=== PATIENT | female | born 1950 | race Caucasian/White ===

== ENCOUNTER 2016-05-28 10:57 | Emergency (ER) | payer BC, OTHER ==
[2016-05-28 11:41] LABS: BASO # 0.2 K/mm3 (0.0-0.2); BASO % 1.4 % (0.0-1.0); EOS # 0.2 K/mm3 (0.0-0.50); EOS % 1.6 % (0.0-3.0); LARGE UNSTAINED CELL # 0.2 K/mm3 (0.0-0.4); LARGE UNSTAINED CELL % 1.3 % (0.0-4.0); LYMPH # 1.6 K/mm3 (1.5-4.5); LYMPH % 11.5 % (24.0-44.0); MEAN CORPUSCULAR HGB CONC 32.8 g/dl (32.0-36.5); MEAN CORPUSCULAR VOLUME 85.5 fl (80.0-96.0); MONO # 0.7 K/mm3 (0.0-0.8); MONO % 5.8 % (0.0-5.0); NEUTROPHILS # 9.7 K/mm3 (1.8-7.7); NEUTROPHILS % 78.5 % (36.0-66.0); PLATELET COUNT, AUTOMATED 320 k/mm3 (150-450); RED CELL DISTRIBUTION WIDTH 14.5 % (11.5-14.5); WHITE BLOOD COUNT 12.3 K/mm3 (4.0-10.0)
[2016-05-28 11:53] LABS: CALCIUM LEVEL 8.7 MG/DL (8.8-10.2); CREATININE FOR GFR 1.14 MG/DL (0.55-1.02); GLOMERULAR FILTRATION RATE 50.9 (>45); POTASSIUM SERUM 4.3 MEQ/L (3.5-5.1)
[2016-05-28] MEDS ORDERED: METOPROLOL 5 MG/5 ML VIAL As Ordered ONE (11:54)
[2016-05-28] MEDS ORDERED: METOPROLOL TART 25 MG TABLET As Ordered ONE (11:54)
--- NOTE | 2016-05-28 12:28 | REP ---
AP portable chest radiograph 05/28/2016 Indication: Palpitations Comparison: None Findings: Cardiomediastinal silhouette is within normal limits. There are no focal areas of lung consolidation or pleural effusions. Bones and soft tissues grossly normal. Impression: No acute cardiopulmonary process. Study somewhat limited by AP portable technique Signed by Emelina Kwon MD 05/28/2016 12:19 P
[2016-05-28] MEDS ORDERED: AMIODARONE HCL 150 MG/100 ML PREMIXED BAG (NEXTERONE) As Ordered ONE ×2 (14:52→15:53)
[2016-05-28] MEDS ORDERED: METOPROLOL TART 50 MG TAB As Ordered ONE (17:12)
[2016-05-28] MEDS ORDERED: ENOXAPARIN 100MG/1ML SYRINGE (J1650) As Ordered ONE (17:12)
[2016-05-28] MEDS ORDERED: AMIODARONE 200 MG TAB (PACERONE) As Ordered ONE (17:12)
--- NOTE | 2016-05-28 17:28 | EDDOCDS ---
Physician Documentation [facility] Name: Oly Jolly Age: 66 yrs Sex: Female : 1950 Arrival Date: 05/28/2016 Time: 10:57 Bed 4 Private MD: Dennis Disposition: 05/28 16:59 Critical Care:. pc Disposition: 05/28/16 17:04 Discharged to Home/Self Care. Impression: Persistent atrial fibrillation, Type 2 diabetes mellitus with hyperglycemia. - Condition is Stable. - Discharge Instructions: Atrial Fibrillation, Type 2 Diabetes Mellitus, Adult. - Prescriptions for Metformin 500 mg Oral Tablet - take 1 tablet by ORAL route once daily with morning and evening meals; 60 tablet. - Medication Reconciliation, Local Pharmacy Hours form. - Follow up: Emergency Department; When: Tomorrow; Reason: Recheck today's complaints. Follow up: Joshua Collins MD; When: Call to arrange an appointment; Reason: Continuance of care. - Problem is new. - Symptoms have improved. - Notes: You are not to have anything to eat or drink after midnight, except sips of water for medications. You are to return to the ED tomorrow morning at 7am for repeat EKG, and if still in Atrial Fibrillation, will require electrocardioversion. You're hemoglobin A1C is 12.8 and will require ongoing treatment through your PCP. Metformin has been prescribed. HPI: 12:10 This 66 yrs old Female presents to ER via Walkin/Carried/Asstd with pc complaints of Palpitations. 12:10 The history is obtained from the patient. 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 She felt her heart rate increase at 7pm last night and it has remained elevated since. She feels a little SOB with exertion but has no complaints at rest. She denies chest pain. She has one cup of coffee per morning but denies decongestants, alcohol or stimulant use. The patient has not recently seen a physician. Historical: - Allergies: No known drug Allergies; - Home Meds: 1. none - PMHx: Type 2 DM - refused treatment, High Cholesterol - refused treatment; - PSHx: Appendectomy; Hysterectomy; Tonsillectomy; x 3; - The history from nurses notes was reviewed: and elements of the historical information I have obtained differs from that reported to nursing. - Social history: No barriers to communication noted, The patient speaks fluent Bengali, Speaks appropriately for age, Smoking status: Patient states former smoker of tobacco. - Family history: Not pertinent. - : The pt / caregiver states he / she is not on anticoagulants. Home medication list is obtained from the patient. - Hospitalizations: : No recent hospitalization is reported. - Exposure Risk Screening:: None identified. - Immunization history:: All immunizations up-to-date. - Social history:: the patient is a non-smoker, the patient does not drink alcohol. ROS: 12:14 All systems are negative except as listed. pc Exam: 12:14 General Appearance: no acute distress, alert. pc 12:14 EENT: normal eye inspection, ears, nose and throat normal, pharynx normal, mucous membranes moist 12:14 Neck: The exam reveals no acute abnormalities. ROM is normal and painless. No nuchal rigidity is noted.. 12:14 Respiratory: no respiratory distress, normal breath sounds. 12:14 CVS: normal S1 and S2, no murmurs, strong peripheral pulses, normal capillary refill, the patient is tachycardic, at 165 bpm, irregularly irregular 12:14 Abdomen: soft, non-tender, no organomegaly, normal bowel sounds. 12:14 Back: normal inspection. 12:14 Skin: skin color is normal, warm, dry. 12:14 Extremities: The extremities have a grossly normal appearance, are non-tender, without acute ROM abnormalities. 12:14 Neuro: oriented x 3, cranial nerves normal as tested, no motor deficits, no sensory deficits. 12:14 Psych: normal mood. Vital Signs: 11:00 BP 146 / 98; Pulse 145; Resp 16; Temp 96.9(O); Pulse Ox 98% ; Weight 99.79 kg / 220 cmb lbs; Height 6 ft. 0 in. (182.88 cm); Pain 0/10; 11:07 BP 137 / 81 (auto/); jo3 11:07 Pulse 156 MON; jo3 11:22 BP 143 / 92 (auto/); jo3 11:22 Pulse 148 MON; Pulse Ox 95% ; jo3 11:37 BP 130 / 84 (auto/); jo3 11:37 Pulse 148 MON; Pulse Ox 95% ; jo3 11:52 BP 140 / 92 (auto/); jo3 11:52 Pulse 152 MON; Pulse Ox 95% ; jo3 12:04 BP 143 / 92; Pulse 124; jo3 12:07 BP 146 / 84 (auto/); jo3 12:07 Pulse 122 MON; jo3 12:09 BP 143 / 92 (auto/); jo3 12:09 Pulse 124 MON; jo3 12:09 BP 145 / 85; Pulse 100; jo3 12:15 BP 134 / 79; Pulse 94; jo3 12:18 BP 145 / 85 (auto/); jo3 12:18 Pulse 100 MON; jo3 12:22 BP 134 / 79 (auto/); jo3 12:22 Pulse 102 MON; jo3 12:37 BP 127 / 77 (auto/); jo3 12:37 Pulse 88 MON; Pulse Ox 95% ; jo3 12:52 BP 126 / 59 (auto/); jo3 12:52 Pulse 92 MON; Pulse Ox 95% ; jo3 13:07 BP 116 / 61 (auto/); jo3 13:07 Pulse 90 MON; Pulse Ox 95% ; jo3 13:22 BP 119 / 57 (auto/); jo3 13:22 Pulse 92 MON; Pulse Ox 93% ; jo3 13:37 BP 124 / 80 (auto/); jo3 13:37 Pulse 94 MON; Pulse Ox 96% ; jo3 13:52 BP 118 / 68 (auto/); jo3 13:52 Pulse 86 MON; Pulse Ox 96% ; jo3 14:22 BP 126 / 71 (auto/); jo3 14:22 Pulse 88 MON; Pulse Ox 95% ; jo3 14:37 BP 127 / 63 (auto/); jo3 14:39 Pulse 88 MON; Pulse Ox 95% ; jo3 14:52 BP 122 / 70 (auto/); pml 14:52 Pulse 92 MON; Pulse Ox 95% ; pml 15:22 BP 126 / 59 (auto/); pml 15:22 Pulse 82 MON; pml 16:51 Pulse 100 MON; pml 16:51 BP 146 / 90 (auto/); pml 17:26 BP 145 / 95; Pulse 95; Resp 18; Temp 97.2; Pulse Ox 96% on R/A; Pain 0/10; pml 11:00 Body Mass Index 29.84 (99.79 kg, 182.88 cm) cmb MDM: 11:09 ECG WITH READING ER PHYS+CARDIAG ordered. 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 dwg 11:12 IV Saline Lock ordered. dwg 11:12 Rhythm Strip to chart ordered. dwg 11:12 Undress patient appropriately for examination ordered. dwg 11:13 Basic Metabolic Profile Ordered. EDMS 11:13 CBC with Diff Ordered. EDMS 11:13 Cardiac Injury Profile Ordered. EDMS 11:13 Troponin Ordered. EDMS 11:52 TSH with Free T4 Ordered. EDMS 11:52 A1C Ordered. EDMS 11:52 Metoprolol (Tartrate) 50 mg PO once ordered. pc 11:52 Metoprolol 5 mg IVP every 5 minutes; Hold for SBP < 100 or HR < 60. x3 ordered. pc 11:53 Chest, 1 View Ordered. EDMS 12:30 Differential Diagnosis: new onset atrial fibrillation of 17 hours duration; Type 2 DM pc and elevated lipids with noncompliance. Plan: labs, EKG, imaging, meds. Test interpretation: EKG. 12:44 Basic Metabolic Profile Reviewed. pc 12:44 CBC with Diff Reviewed. pc 12:44 Cardiac Injury Profile Reviewed. pc 12:44 Troponin Reviewed. pc 12:45 Redraw CIP &Troponin (put time in details section) ordered. pc 12:51 Redraw CIP &Troponin (put time in details section) complete. deg 12:52 CARDIAC MARKER PANEL Ordered. EDMS 13:09 TSH with Free T4 Reviewed. pc 13:09 Chest, 1 View Reviewed. pc 14:25 A1C Reviewed. pc 14:25 CARDIAC MARKER PANEL Reviewed. pc 14:35 amiodarone- Rapid load (mix in 100mL of NS) 150 mg IV at 600 mL/hr once over 10 mins; pc Repeat once after 30 minutes if Atrial Fibrillation persists x2 ordered. 14:38 [facility] Payment Agreement was scanned into [facility] and attached to record. jp5 14:38 Financial registration complete. jp5 16:59 Enoxaparin (1mg/kg) 100 mg Sub-Q once; Ensure no Heparin in past 6hrs. Ensure any pc baseline labs are drawn. ordered. 16:59 amiodarone 200 mg PO Per package directions; dispense to go: take at bedtime ordered. pc 16:59 Metoprolol (Tartrate) 50 mg PO Per package directions; dispense 2 doses to go: take at bedtime and in the morning ordered. 16:59 Data reviewed: old medical records, vital signs, nurses notes, EKG(s), lab test pc results, all radiology studies and available results. Test interpretation: LAB - all labs as ordered have been reviewed, interpreted and considered in the overall management of the clinical presentation; X-RAY - interpreted by Radiologist and personally reviewed, 1 view chest no acute disease. The patient has been re-examined and re-evaluated. The patient's symptoms have mildly improved after treatment. Physician consultation: Dr. Quinton Mccrary MD regarding patient's condition, and he advises the amiodarone infusions as ordered. Without conversion to NSR after an hour, he has offered admission to the patient which was declined. As such, he has advised: discharge home, after Lovenox, with amiodarone 200mg at bedtime and metoprolol 50mg at bedtime and in the morning, NPO after midnight and she is to return to the ED at 7am for repeat EKG and possible electrocardioversion . Disposition: The historical points, examination findings, and any diagnostic results supporting the provided diagnosis, were discussed with the patient or legal guardian. The need for outpatient follow up with the provider listed on their discharge instructions was discussed. They were encouraged to return to [facility], or the nearest ED, if symptoms worsen/persist, or for any other questions/concerns. EC:15 Rate is 154 beats/min. Rhythm is irregularly irregular, A fib. QRS [place] is Normal. QRS pc interval is normal. QT interval is normal. Q waves are Old in lead III. T waves are Normal. ST Segment is depressed in leads V4, V5, V6, <1mm. Clinical impression: Nonspecific ST-T changes, Atrial Fibrillation with RVR, and Inferior RI - age indeterminate. Administered Medications: 12:00 Drug: Metoprolol 50 mg [metoprolol tartrate 25 mg tablet (2 tabs)] Route: PO; jo3 12:00 Drug: Metoprolol 5 mg [metoprolol 5 mg/5 mL intravenous solution (5 mL)] Route: IVP; jo3 Site: left antecubital; 12:04 Follow up: BP 143 / 92; Pulse 124 bpm jo3 12:05 Drug: Metoprolol 5 mg [metoprolol 5 mg/5 mL intravenous solution (5 mL)] Route: IVP; jo3 Site: left antecubital; 12:09 Follow up: BP 145 / 85; Pulse 100 bpm jo3 12:10 Drug: Metoprolol 5 mg [metoprolol 5 mg/5 mL intravenous solution (5 mL)] Route: IVP; jo3 Site: left antecubital; 12:15 Follow up: BP 134 / 79; Pulse 94 bpm jo3 15:09 Drug: amiodarone- Rapid load (mix in 100mL of NS) 150 mg [amiodarone 150 mg/100 mL (1.5 jo3 mg/mL) in dextrose, iso-osmotic IV] Route: IV; Rate: 600 mL/hr; Infused Over: 10 mins; Site: left antecubital; 15:25 Follow up: IV Status: Completed infusion jo3 16:00 Drug: amiodarone- Rapid load (mix in 100mL of NS) 150 mg [amiodarone 150 mg/100 mL (1.5 jo3 mg/mL) in dextrose, iso-osmotic IV] Route: IV; Rate: 600 mL/hr; Infused Over: 10 mins; Site: left antecubital; 16:10 Follow up: IV Status: Completed infusion jo3 17:14 Drug: Metoprolol 50 mg [metoprolol tartrate 50 mg tablet (1 tabs)] Route: PO; pml 17:25 Follow up: Response: Med's dispensed home pml 17:15 Drug: Enoxaparin (1mg/kg) 100 mg [enoxaparin 100 mg/mL subcutaneous syringe (1 mL)] pml {Co-Signature: [email or web address] (Kizzy Thomas RN).} Route: Sub-Q; Site: left lower abdomen; 17:15 Drug: amiodarone 200 mg [amiodarone 200 mg tablet (1 tabs)] Route: PO; pml 17:25 Follow up: Response: Med's dispensed home pml Critical Care Time: 16:59 Critical care time: Bedside Care: 35 minutes, Consultation: 20 minutes, Family pc Intervention: 15 minutes. Total time: 70 minutes Signatures: Dispatcher [employer] Lyle Smith MD MD pc Murray, Denise, E [employer] García Nixon RN RN Kizzy Ridley,RN RN jo3 Jane Nick,RN Aye López jp5 Kizzy Thomas RN [id number] The chart was reviewed and I authenticate all verbal orders and agree with the evaluation and treatment provided.Corrections: (The following items were deleted from the chart) 11:39 11:13 ECG WITH READING ER PHYS+CARDIAG ordered. EDMS EDMS 12:14 11:12 PMHx: none; jo3 pc Attachments: 14:38 [facility] Payment Agreement [email or web address] MTDD
--- NOTE | 2016-05-28 17:28 | EDDOCDS ---
Nurse's Notes [facility] Name: Oly Jolly Age: 66 yrs Sex: Female : 1950 Arrival Date: 05/28/2016 Time: 10:57 Bed 4 Private MD: Dennis Diagnosis: Persistent atrial fibrillation;Type 2 diabetes mellitus with hyperglycemia Presentation: 05/28 11:08 Presenting complaint: Patient states: Started having palpitations last evening at jo3 approximately 1930. Fell asleep and awakened this morning with intermittent palpitations. Have been consistent since 0900. Denies CP/SOB. Adult Sepsis Screening: The patient does not have new or worsening altered mentation. Patient's respiratory rate is less than 22. Systolic blood pressure is greater than 100. Patient has a qSOFA score of 0- Negative Sepsis Screen. Suicide/Homicide risk assessment- the patient denies having any suicidal and/or homicidal ideations and does not present with any other emotional, behavioral or mental health complaints. Status: Patient is not a online services manager or dependent. Transition of care: patient was not received from another setting of care. 11:08 Acuity: RA Level 2 jo3 11:08 Method Of Arrival: Walkin/Carried/Asstd jo3 11:08 Red Flag criteria, patient assessed and taken directly to a bed. mk4 Triage Assessment: 11:12 General: Appears in no apparent distress, comfortable, Behavior is appropriate for age, jo3 cooperative. Pain: Denies pain. The patient is triaged at the bedside. See Assessment in Nurses Notes section of ED record. Neurological: Level of Consciousness is awake, alert, Oriented to person, place, time. 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 Respiratory: Airway is patent Respiratory effort is even, unlabored, Breath sounds are clear bilaterally. Derm: Skin is pink, warm & dry. Historical: - Allergies: No known drug Allergies; - Home Meds: 1. none - PMHx: Type 2 DM - refused treatment, High Cholesterol - refused treatment; - PSHx: Appendectomy; Hysterectomy; Tonsillectomy; x 3; - The history from nurses notes was reviewed: and elements of the historical information I have obtained differs from that reported to nursing. - Social history: No barriers to communication noted, The patient speaks fluent Turkish, Speaks appropriately for age, Smoking status: Patient states former smoker of tobacco. - Family history: Not pertinent. - : The pt / caregiver states he / she is not on anticoagulants. Home medication list is obtained from the patient. - Hospitalizations: : No recent hospitalization is reported. - Exposure Risk Screening:: None identified. - Immunization history:: All immunizations up-to-date. - Social history:: the patient is a non-smoker, the patient does not drink alcohol. Screenin:29 Screening information is obtained from the patient. Fall risk: No risks identified. jo3 Assistance ADL's: requires no assistance with activities of daily living. Abuse/DV Screen: The patient / caregiver reports he/she is: not in a situation that causes fear, pain or injury. Nutritional screening: No deficits noted. home support is adequate. 14:52 Advance Directives: Currently, there is no health care proxy. pml Assessment: 11:29 General: Appears in no apparent distress, comfortable, Behavior is appropriate for age, jo3 cooperative, pleasant. Pain: Denies pain. Neurological: Level of Consciousness is awake, alert, Oriented to person, place, time. Cardiovascular: Rhythm is atrial fibrillation with rapid ventricular response. Respiratory: Airway is patent Respiratory effort is even, unlabored, Breath sounds are clear bilaterally. Denies shortness of breath. Derm: Skin is pink, warm & dry. 12:31 Reassessment: Patient appears in no apparent distress at this time. Patient denies pain jo3 at this time. Patient states feeling better. Reports that palpitations have subsided. Rhythm remains atrial fib at a rate of 90-115 approximately. Awaiting full response to medication. Aware of plan of care . 13:40 Reassessment: Patient appears in no apparent distress at this time. Patient denies pain jo3 at this time. Labs drawn and sent by this machine sign writer. Pt resting quietly on stretcher in state of comfort. Awaiting results for disposition. Aware of plan of care. at bedside . 14:30 Reassessment: Patient appears in no apparent distress at this time. Patient denies pain jo3 at this time. Remains on stretcher at this time. Awaiting consult with cardiology at this time for disposition. Aware of plan of care . 15:25 General: Appears in no apparent distress, comfortable, Behavior is appropriate for age, jo3 cooperative. Neurological: Level of Consciousness is awake, alert, Oriented to person, place, time. Cardiovascular: Rhythm is atrial fibrillation Other rate in 80s primarily Chest pain is denied. Respiratory: Airway is patent Respiratory effort is even, unlabored. Derm: Skin is pink, warm & dry. 16:45 General: Appears in no apparent distress, comfortable, Behavior is appropriate for age, jo3 cooperative, pleasant. General: Awaiting disposition with at bedside. Aware of plan of care . Neurological: Level of Consciousness is awake, alert, Oriented to person, place, time. Cardiovascular: Rhythm is atrial fibrillation. Respiratory: Airway is patent Respiratory effort is even, unlabored. Derm: Skin is pink, warm & dry. 17:25 General: Appears in no apparent distress, comfortable, Behavior is appropriate for age, pml cooperative. Pain: Denies pain. Neurological: Level of Consciousness is awake, alert, Oriented to person, place, time. Cardiovascular: Capillary refill < 3 seconds Rhythm is atrial fibrillation. Respiratory: Airway is patent Respiratory effort is even, unlabored. Derm: Skin is pink, warm & dry. Vital Signs: 11:00 BP 146 / 98; Pulse 145; Resp 16; Temp 96.9(O); Pulse Ox 98% ; Weight 99.79 kg; Height 6 cmb ft. 0 in. (182.88 cm); Pain 0/10; 11:07 BP 137 / 81 (auto/); jo3 11:07 Pulse 156 MON; jo3 11:22 BP 143 / 92 (auto/); jo3 11:22 Pulse 148 MON; Pulse Ox 95% ; jo3 11:37 BP 130 / 84 (auto/); jo3 11:37 Pulse 148 MON; Pulse Ox 95% ; jo3 11:52 BP 140 / 92 (auto/); jo3 11:52 Pulse 152 MON; Pulse Ox 95% ; jo3 12:04 BP 143 / 92; Pulse 124; jo3 12:07 BP 146 / 84 (auto/); jo3 12:07 Pulse 122 MON; jo3 12:09 BP 143 / 92 (auto/); jo3 12:09 Pulse 124 MON; jo3 12:09 BP 145 / 85; Pulse 100; jo3 12:15 BP 134 / 79; Pulse 94; jo3 12:18 BP 145 / 85 (auto/); jo3 12:18 Pulse 100 MON; jo3 12:22 BP 134 / 79 (auto/); jo3 12:22 Pulse 102 MON; jo3 12:37 BP 127 / 77 (auto/); jo3 12:37 Pulse 88 MON; Pulse Ox 95% ; jo3 12:52 BP 126 / 59 (auto/); jo3 12:52 Pulse 92 MON; Pulse Ox 95% ; jo3 13:07 BP 116 / 61 (auto/); jo3 13:07 Pulse 90 MON; Pulse Ox 95% ; jo3 13:22 BP 119 / 57 (auto/); jo3 13:22 Pulse 92 MON; Pulse Ox 93% ; jo3 13:37 BP 124 / 80 (auto/); jo3 13:37 Pulse 94 MON; Pulse Ox 96% ; jo3 13:52 BP 118 / 68 (auto/); jo3 13:52 Pulse 86 MON; Pulse Ox 96% ; jo3 14:22 BP 126 / 71 (auto/); jo3 14:22 Pulse 88 MON; Pulse Ox 95% ; jo3 14:37 BP 127 / 63 (auto/); jo3 14:39 Pulse 88 MON; Pulse Ox 95% ; jo3 14:52 BP 122 / 70 (auto/); pml 14:52 Pulse 92 MON; Pulse Ox 95% ; pml 15:22 BP 126 / 59 (auto/); pml 15:22 Pulse 82 MON; pml 16:51 Pulse 100 MON; pml 16:51 BP 146 / 90 (auto/); pml 17:26 BP 145 / 95; Pulse 95; Resp 18; Temp 97.2; Pulse Ox 96% on R/A; Pain 0/10; pml 11:00 Body Mass Index 29.84 (99.79 kg, 182.88 cm) cmb Vitals: 11:00 Log In Time: May 28, 2016 at 10:45. cmb ED Course: 10:58 Patient visited by Isabel eRddy. cmb 10:58 Patient moved to Waiting cmb 10:59 Dennis is Private Physician. cmb 11:01 RN notified that patient meets Red Flag criteria. cmb 11:04 Patient moved to 4 jo3 11:10 Triage Initiated jo3 11:15 EKG done. (by ED staff). Reviewed by Lyle Bustamante MD. ct3 11:18 Patient visited by Vannesa Cornell PCA. ct3 11:18 Accompanied by Family Member, Patient has correct armband on for positive ct3 identification. Placed in gown. Bed in low position. Call light in reach. Side rails up X2. family medicine physician on. Pulse ox on. NIBP on. 11:29 The patient / caregiver is instructed regarding the plan of care and ED course. jo3 11:29 Basic Metabolic Profile Sent. jo3 11:29 CBC with Diff Sent. jo3 11:29 Cardiac Injury Profile Sent. jo3 11:29 Troponin Sent. jo3 11:29 Inserted saline lock: 18 gauge in left antecubital area. Labs drawn. (by ED staff). jo3 Sent per order to lab. 11:30 Patient visited by Kizzy Garcia RN. jo3 11:33 Lyle Bustamante MD is Attending Physician. pc 11:51 Patient visited by Lyle Bustamante MD. pc 12:32 Patient visited by Kizzy Garcia RN. jo3 12:33 A1C Sent. jo3 13:02 Chest, 1 View Returned. EDMS 13:21 Patient visited by Vannesa Cornell PCA. ct3 13:35 CARDIAC MARKER PANEL Sent. jo3 14:02 Patient visited by Kizzy Garcia RN. jo3 14:38 [facility] Payment Agreement was scanned into [employer] and attached to record. jp5 14:51 Patient visited by Vannesa Cornell PCA. ct3 14:52 Patient name changed from Oly\S\\S\Rik\S\ to Oly\S\Karie\S\Rik. EDMS 14:52 Discontinued lock intact, bleeding controlled, pressure dressing applied, No pml redness/swelling at site. No procedures done that require assistance. 15:43 Patient visited by Kizzy Garcia RN. jo3 16:46 Patient visited by Kizzy Garcia RN. jo3 17:03 Joshua Collins MD is Referral Physician. pc Administered Medications: 12:00 Drug: Metoprolol 50 mg [metoprolol tartrate 25 mg tablet (2 tabs)] Route: PO; jo3 12:00 Drug: Metoprolol 5 mg [metoprolol 5 mg/5 mL intravenous solution (5 mL)] Route: IVP; jo3 Site: left antecubital; 12:04 Follow up: BP 143 / 92; Pulse 124 bpm jo3 12:05 Drug: Metoprolol 5 mg [metoprolol 5 mg/5 mL intravenous solution (5 mL)] Route: IVP; jo3 Site: left antecubital; 12:09 Follow up: BP 145 / 85; Pulse 100 bpm jo3 12:10 Drug: Metoprolol 5 mg [metoprolol 5 mg/5 mL intravenous solution (5 mL)] Route: IVP; jo3 Site: left antecubital; 12:15 Follow up: BP 134 / 79; Pulse 94 bpm jo3 15:09 Drug: amiodarone- Rapid load (mix in 100mL of NS) 150 mg [amiodarone 150 mg/100 mL (1.5 jo3 mg/mL) in dextrose, iso-osmotic IV] Route: IV; Rate: 600 mL/hr; Infused Over: 10 mins; Site: left antecubital; 15:25 Follow up: IV Status: Completed infusion jo3 16:00 Drug: amiodarone- Rapid load (mix in 100mL of NS) 150 mg [amiodarone 150 mg/100 mL (1.5 jo3 mg/mL) in dextrose, iso-osmotic IV] Route: IV; Rate: 600 mL/hr; Infused Over: 10 mins; Site: left antecubital; 16:10 Follow up: IV Status: Completed infusion jo3 17:14 Drug: Metoprolol 50 mg [metoprolol tartrate 50 mg tablet (1 tabs)] Route: PO; pml 17:25 Follow up: Response: Med's dispensed home pml 17:15 Drug: Enoxaparin (1mg/kg) 100 mg [enoxaparin 100 mg/mL subcutaneous syringe (1 mL)] pml {Co-Signature: [email or web address] (Kizzy Thomas RN).} Route: Sub-Q; Site: left lower abdomen; 17:15 Drug: amiodarone 200 mg [amiodarone 200 mg tablet (1 tabs)] Route: PO; pml 17:25 Follow up: Response: Med's dispensed home pml Order Results: Lab Order: Basic Metabolic Profile; SPEC'M 05/28/16 11:26 Test: GLUCOSE, FASTING; Value: 413; Range: 80-110; Abnormal: Above upper panic limits; Units: MG/DL; Status: F Test: BLOOD UREA NITROGEN; Value: 20; Range: 7-18; Abnormal: Above high normal; Units: MG/DL; Status: F Test: CREATININE FOR GFR; Value: 1.14; Range: 0.55-1.02; Abnormal: Above high normal; Units: MG/DL; Status: F Test: GLOMERULAR FILTRATION RATE; Value: 50.9; Range: >45; Status: F Test: SODIUM LEVEL; Value: 136; Range: 136-145; Units: MEQ/L; Status: F Test: POTASSIUM SERUM; Value: 4.3; Range: 3.5-5.1; Units: MEQ/L; Status: F Test: CHLORIDE LEVEL; Value: 99; Range: 98-107; Units: MEQ/L; Status: F Test: CARBON DIOXIDE LEVEL; Value: 28; Range: 21-32; Units: MEQ/L; Status: F Test: ANION GAP; Value: 9; Range: 8-16; Units: MEQ/L; Status: F Test: CALCIUM LEVEL; Value: 8.7; Range: 8.8-10.2; Abnormal: Below low normal; Units: MG/DL; Status: F Test Note: ; Units are mL/min/1.73 m2 Chronic Kidney Disease Staging per NKF: Stage I & II GFR >=60 Normal to Mildly Decreased Stage III GFR 30-59 Moderately Decreased Stage IV GFR 15-29 Severely Decreased Stage V GFR <15 Very Little GFR Left ESRD GFR <15 on [employer] SALE CLERK Lab Order: CBC with Diff; SPEC'M 05/28/16 11:26 Test: WHITE BLOOD COUNT; Value: 12.3; Range: 4.0-10.0; Abnormal: Above high normal; Units: K/mm3; Status: F Test: RED BLOOD COUNT; Value: 5.74; Range: 4.00-5.40; Abnormal: Above high normal; Units: M/mm3; Status: F Test: HEMOGLOBIN; Value: 16.1; Range: 12.0-16.0; Abnormal: Above high normal; Units: g/dl; Status: F Test: HEMATOCRIT; Value: 49.1; Range: 36.0-47.0; Abnormal: Above high normal; Units: %; Status: F Test: MEAN CORPUSCULAR VOLUME; Value: 85.5; Range: 80.0-96.0; Units: fl; Status: F Test: MEAN CORPUSCULAR HEMOGLOBIN; Value: 28.0; Range: 27.0-33.0; Units: pg; Status: F Test: MEAN CORPUSCULAR HGB CONC; Value: 32.8; Range: 32.0-36.5; Units: g/dl; Status: F Test: RED CELL DISTRIBUTION WIDTH; Value: 14.5; Range: 11.5-14.5; Units: %; Status: F Test: PLATELET COUNT, AUTOMATED; Value: 320; Range: 150-450; Units: k/mm3; Status: F Test: NEUTROPHILS %; Value: 78.5; Range: 36.0-66.0; Abnormal: Above high normal; Units: %; Status: F Test: LYMPH %; Value: 11.5; Range: 24.0-44.0; Abnormal: Below low normal; Units: %; Status: F Test: MONO %; Value: 5.8; Range: 0.0-5.0; Abnormal: Above high normal; Units: %; Status: F Test: EOS %; Value: 1.6; Range: 0.0-3.0; Units: %; Status: F Test: BASO %; Value: 1.4; Range: 0.0-1.0; Abnormal: Above high normal; Units: %; Status: F Test: LARGE UNSTAINED CELL %; Value: 1.3; Range: 0.0-4.0; Units: %; Status: F Test: NEUTROPHILS #; Value: 9.7; Range: 1.8-7.7; Abnormal: Above high normal; Units: K/mm3; Status: F Test: LYMPH #; Value: 1.6; Range: 1.5-4.5; Units: K/mm3; Status: F Test: MONO #; Value: 0.7; Range: 0.0-0.8; Units: K/mm3; Status: F Test: EOS #; Value: 0.2; Range: 0.0-0.50; Units: K/mm3; Status: F Test: BASO #; Value: 0.2; Range: 0.0-0.2; Units: K/mm3; Status: F Test: LARGE UNSTAINED CELL #; Value: 0.2; Range: 0.0-0.4; Units: K/mm3; Status: F Lab Order: Cardiac Injury Profile; SPEC' 05/28/16 11:26 Test: CPK CREATINE PHOSPHOKINASE; Value: 64; Range: 26-192; Units: U/L; Status: F Test: CK-MB VALUE MASS; Value: 3.2; Range: 0.0-3.6; Units: NG/ML; Status: F Test: MB/CK RELATIVE INDEX; Value: 5.00; Range: < OR =4; Abnormal: Above high normal; Status: F Test Note: ; DIAGNOSIS CRITERIA MMB ng/ml Relative Index (RI) NON-AMI < or = 5 N/A NOLAN ZONE > 5 < or = 4 AMI > 5 > 4 Lab Order: Troponin; SPEC' 05/28/16 11:26 Test: TROPONIN I; Value: 0.14; Range: < 0.10; Abnormal: Above high normal; Units: NG/ML; Status: F Test Note: ; Troponin I Reference Interval for mktg LOCI: 99th Percentile= 0.00-0.045 ng/ml Risk Stratification: <= 0.10 ng/ml Decreased Risk for Adverse Clinical Events. 0.10-1.50 ng/ml Increased Risk for Adverse Clinical Events. Evaluation of additional criterion and/or repeat testing in 2-6 hours is suggested to rule out myocardial damage. >= 1.50 ng/ml Indicative of Myocardial Injury. Lab Order: TSH with Free T4; SPEC'M 05/28/16 11:51 Test: THYROID STIMULATING HORMONE; Value: 1.140; Range: 0.358-3.740; Units: uIU/ML; Status: F Test: FREE T4; Value: 1.00; Range: 0.76-1.46; Units: NG/DL; Status: F Lab Order: A1C; SPEC'M 05/28/16 11:26 Test: HEMOGLOBIN A1c; Value: 12.7; Range: 4.5-6.2; Abnormal: Above high normal; Units: %; Status: F Test: ESTIMATED AVERAGE GLUCOSE; Value: 318; Range: 60-110; Abnormal: Above high normal; Units: MG/DL; Status: F Lab Order: CARDIAC MARKER PANEL; SPEC'M 05/28/16 13:35 Test: CPK CREATINE PHOSPHOKINASE; Value: 57; Range: 26-192; Units: U/L; Status: F Test: CK-MB VALUE MASS; Value: 2.9; Range: 0.0-3.6; Units: NG/ML; Status: F Test: MB/CK RELATIVE INDEX; Value: 5.08; Range: < OR =4; Abnormal: Above high normal; Status: F Test: TROPONIN I; Value: 0.20; Range: < 0.10; Abnormal: High; Units: NG/ML; Status: F Test Note: ; DIAGNOSIS CRITERIA MMB ng/ml Relative Index (RI) NON-AMI < or = 5 N/A NOLAN ZONE > 5 < or = 4 AMI > 5 > 4 Radiology Order: Chest, 1 View Test: Chest, 1 View REASON FOR EXAMINATION: palpitations; AP portable chest radiograph 05/28/2016; ; Indication: Palpitations; ; Comparison: None; ; Findings: Cardiomediastinal silhouette is within normal limits. There are no; focal areas of lung consolidation or pleural effusions. Bones and soft tissues; grossly normal.; ; Impression: No acute cardiopulmonary process. Study somewhat limited by AP; portable technique; ; ; Signed by; Emelina Kwon MD 05/28/2016 12:19 P; Outcome: 17:04 Discharge ordered by Provider. pc 17:27 Discharge Assessment: Patient awake, alert and oriented x 3. No cognitive and/or pml functional deficits noted. Patient verbalized understanding of disposition instructions. patient administered narcotics - no. The following High Risk Discharge criteria are identified: None. Discharged to home ambulatory, with significant other. Condition: good Condition: stable. Discharge instructions given to patient, Instructed on discharge instructions, follow up and referral plans. medication usage, Demonstrated understanding of instructions, medications, Pt was receptive of discharge instructions/ teaching. Prescriptions given X 1. No special radiology studies were completed. Property sent home with patient. 17:27 Patient left the ED. pml Signatures: Dispatcher [employer] EDMS Lyle Bustamante MD MD pc Helmerci, Jennifer, RN RN jo3 Vannesa Cornell, [employer] BAND TEACHER [employer] BAND TEACHER ct3 Sandoval,Jane,RN Isabel Nelson Margaret RN RN [email or web address] Aye Jha jp5 Kizzy Thomas RN [email or web address] Corrections: (The following items were deleted from the chart) 11:12 PMHx: none; jo3 pc MTDD
--- NOTE | 2016-05-29 07:22 | ECGEPIP ---
Stationary ECG Study [facility] - ED Test Date: 2016-05-28 Pat Name: GALO CAMERON Department: Room: - Gender: F Catechist: ct : 1950 Requested By: Lyle Guerrero Order Number: [id number] Reading MD: Modesta Nowak Measurements Intervals [place] Rate: 154 P: [place]: 0 QRS: 24 QRSD: 80 T: 33 QT: 258 QTc: 413 Interpretive Statements ATRIAL FIBRILLATION WITH RAPID VENTRICULAR RESPONSE NONSPECIFIC ST & T-WAVE ABNORMALITY ABNORMAL RHYTHM ECG NO PRIOR FOR COMPARISON Electronically Signed On 05-29-2016 7:22:26 EST by Modesta Nowak
--- NOTE | 2016-05-30 18:28 | EDDOCDS ---
Physician Documentation [facility] Name: Oly Jolly Age: 66 yrs Sex: Female : 1950 Arrival Date: 05/28/2016 Time: 10:57 Bed 4 Private MD: Dennis Disposition: 05/28 16:59 Critical Care:. pc Disposition: 05/28/16 17:04 Discharged to Home/Self Care. Impression: Persistent atrial fibrillation, Type 2 diabetes mellitus with hyperglycemia. - Condition is Stable. - Discharge Instructions: Atrial Fibrillation, Type 2 Diabetes Mellitus, Adult. - Prescriptions for Metformin 500 mg Oral Tablet - take 1 tablet by ORAL route once daily with morning and evening meals; 60 tablet. - Medication Reconciliation, Local Pharmacy Hours form. - Follow up: Emergency Department; When: Tomorrow; Reason: Recheck today's complaints. Follow up: Joshua Collins MD; When: Call to arrange an appointment; Reason: Continuance of care. - Problem is new. - Symptoms have improved. - Notes: You are not to have anything to eat or drink after midnight, except sips of water for medications. You are to return to the ED tomorrow morning at 7am for repeat EKG, and if still in Atrial Fibrillation, will require electrocardioversion. You're hemoglobin A1C is 12.8 and will require ongoing treatment through your PCP. Metformin has been prescribed. HPI: 12:10 This 66 yrs old Female presents to ER via Walkin/Carried/Asstd with pc complaints of Palpitations. 12:10 The history is obtained from the patient. 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 She felt her heart rate increase at 7pm last night and it has remained elevated since. She feels a little SOB with exertion but has no complaints at rest. She denies chest pain. She has one cup of coffee per morning but denies decongestants, alcohol or stimulant use. The patient has not recently seen a physician. Historical: - Allergies: No known drug Allergies; - Home Meds: 1. none - PMHx: Type 2 DM - refused treatment, High Cholesterol - refused treatment; - PSHx: Appendectomy; Hysterectomy; Tonsillectomy; x 3; - The history from nurses notes was reviewed: and elements of the historical information I have obtained differs from that reported to nursing. - Social history: No barriers to communication noted, The patient speaks fluent Malay, Speaks appropriately for age, Smoking status: Patient states former smoker of tobacco. - Family history: Not pertinent. - : The pt / caregiver states he / she is not on anticoagulants. Home medication list is obtained from the patient. - Hospitalizations: : No recent hospitalization is reported. - Exposure Risk Screening:: None identified. - Immunization history:: All immunizations up-to-date. - Social history:: the patient is a non-smoker, the patient does not drink alcohol. ROS: 12:14 All systems are negative except as listed. pc Exam: 12:14 General Appearance: no acute distress, alert. pc 12:14 EENT: normal eye inspection, ears, nose and throat normal, pharynx normal, mucous membranes moist 12:14 Neck: The exam reveals no acute abnormalities. ROM is normal and painless. No nuchal rigidity is noted.. 12:14 Respiratory: no respiratory distress, normal breath sounds. 12:14 CVS: normal S1 and S2, no murmurs, strong peripheral pulses, normal capillary refill, the patient is tachycardic, at 165 bpm, irregularly irregular 12:14 Abdomen: soft, non-tender, no organomegaly, normal bowel sounds. 12:14 Back: normal inspection. 12:14 Skin: skin color is normal, warm, dry. 12:14 Extremities: The extremities have a grossly normal appearance, are non-tender, without acute ROM abnormalities. 12:14 Neuro: oriented x 3, cranial nerves normal as tested, no motor deficits, no sensory deficits. 12:14 Psych: normal mood. Vital Signs: 11:00 BP 146 / 98; Pulse 145; Resp 16; Temp 96.9(O); Pulse Ox 98% ; Weight 99.79 kg / 220 cmb lbs; Height 6 ft. 0 in. (182.88 cm); Pain 0/10; 11:07 BP 137 / 81 (auto/); jo3 11:07 Pulse 156 MON; jo3 11:22 BP 143 / 92 (auto/); jo3 11:22 Pulse 148 MON; Pulse Ox 95% ; jo3 11:37 BP 130 / 84 (auto/); jo3 11:37 Pulse 148 MON; Pulse Ox 95% ; jo3 11:52 BP 140 / 92 (auto/); jo3 11:52 Pulse 152 MON; Pulse Ox 95% ; jo3 12:04 BP 143 / 92; Pulse 124; jo3 12:07 BP 146 / 84 (auto/); jo3 12:07 Pulse 122 MON; jo3 12:09 BP 143 / 92 (auto/); jo3 12:09 Pulse 124 MON; jo3 12:09 BP 145 / 85; Pulse 100; jo3 12:15 BP 134 / 79; Pulse 94; jo3 12:18 BP 145 / 85 (auto/); jo3 12:18 Pulse 100 MON; jo3 12:22 BP 134 / 79 (auto/); jo3 12:22 Pulse 102 MON; jo3 12:37 BP 127 / 77 (auto/); jo3 12:37 Pulse 88 MON; Pulse Ox 95% ; jo3 12:52 BP 126 / 59 (auto/); jo3 12:52 Pulse 92 MON; Pulse Ox 95% ; jo3 13:07 BP 116 / 61 (auto/); jo3 13:07 Pulse 90 MON; Pulse Ox 95% ; jo3 13:22 BP 119 / 57 (auto/); jo3 13:22 Pulse 92 MON; Pulse Ox 93% ; jo3 13:37 BP 124 / 80 (auto/); jo3 13:37 Pulse 94 MON; Pulse Ox 96% ; jo3 13:52 BP 118 / 68 (auto/); jo3 13:52 Pulse 86 MON; Pulse Ox 96% ; jo3 14:22 BP 126 / 71 (auto/); jo3 14:22 Pulse 88 MON; Pulse Ox 95% ; jo3 14:37 BP 127 / 63 (auto/); jo3 14:39 Pulse 88 MON; Pulse Ox 95% ; jo3 14:52 BP 122 / 70 (auto/); pml 14:52 Pulse 92 MON; Pulse Ox 95% ; pml 15:22 BP 126 / 59 (auto/); pml 15:22 Pulse 82 MON; pml 16:51 Pulse 100 MON; pml 16:51 BP 146 / 90 (auto/); pml 17:26 BP 145 / 95; Pulse 95; Resp 18; Temp 97.2; Pulse Ox 96% on R/A; Pain 0/10; pml 11:00 Body Mass Index 29.84 (99.79 kg, 182.88 cm) cmb MDM: 11:09 ECG WITH READING ER PHYS+CARDIAG ordered. EDMS 11:12 Fountain Helper/Pulse Ox/q 30 min VS ordered. dwg 11:12 IV Saline Lock ordered. dwg 11:12 Rhythm Strip to chart ordered. dwg 11:12 Undress patient appropriately for examination ordered. dwg 11:13 Basic Metabolic Profile Ordered. EDMS 11:13 CBC with Diff Ordered. EDMS 11:13 Cardiac Injury Profile Ordered. EDMS 11:13 Troponin Ordered. EDMS 11:52 TSH with Free T4 Ordered. EDMS 11:52 A1C Ordered. EDMS 11:52 Metoprolol (Tartrate) 50 mg PO once ordered. pc 11:52 Metoprolol 5 mg IVP every 5 minutes; Hold for SBP < 100 or HR < 60. x3 ordered. pc 11:53 Chest, 1 View Ordered. EDMS 12:30 Differential Diagnosis: new onset atrial fibrillation of 17 hours duration; Type 2 DM pc and elevated lipids with noncompliance. Plan: labs, EKG, imaging, meds. Test interpretation: EKG. 12:44 Basic Metabolic Profile Reviewed. pc 12:44 CBC with Diff Reviewed. pc 12:44 Cardiac Injury Profile Reviewed. pc 12:44 Troponin Reviewed. pc 12:45 Redraw CIP &Troponin (put time in details section) ordered. pc 12:51 Redraw CIP &Troponin (put time in details section) complete. deg 12:52 CARDIAC MARKER PANEL Ordered. EDMS 13:09 TSH with Free T4 Reviewed. pc 13:09 Chest, 1 View Reviewed. pc 14:25 A1C Reviewed. pc 14:25 CARDIAC MARKER PANEL Reviewed. pc 14:35 amiodarone- Rapid load (mix in 100mL of NS) 150 mg IV at 600 mL/hr once over 10 mins; pc Repeat once after 30 minutes if Atrial Fibrillation persists x2 ordered. 14:38 [facility] Payment Agreement was scanned into [email or web address] and attached to record. jp5 14:38 Financial registration complete. jp5 16:59 Enoxaparin (1mg/kg) 100 mg Sub-Q once; Ensure no Heparin in past 6hrs. Ensure any pc baseline labs are drawn. ordered. 16:59 amiodarone 200 mg PO Per package directions; dispense to go: take at bedtime ordered. pc 16:59 Metoprolol (Tartrate) 50 mg PO Per package directions; dispense 2 doses to go: take at bedtime and in the morning ordered. 16:59 Data reviewed: old medical records, vital signs, nurses notes, EKG(s), lab test pc results, all radiology studies and available results. Test interpretation: LAB - all labs as ordered have been reviewed, interpreted and considered in the overall management of the clinical presentation; X-RAY - interpreted by Radiologist and personally reviewed, 1 view chest no acute disease. The patient has been re-examined and re-evaluated. The patient's symptoms have mildly improved after treatment. Physician consultation: Dr. Quinton Mccrary MD regarding patient's condition, and he advises the amiodarone infusions as ordered. Without conversion to NSR after an hour, he has offered admission to the patient which was declined. As such, he has advised: discharge home, after Lovenox, with amiodarone 200mg at bedtime and metoprolol 50mg at bedtime and in the morning, NPO after midnight and she is to return to the ED at 7am for repeat EKG and possible electrocardioversion . Disposition: The historical points, examination findings, and any diagnostic results supporting the provided diagnosis, were discussed with the patient or legal guardian. The need for outpatient follow up with the provider listed on their discharge instructions was discussed. They were encouraged to return to [facility], or the nearest ED, if symptoms worsen/persist, or for any other questions/concerns. 05/29 11:20 ECG/EKG was scanned into [email or web address] and attached to record. gb EC/12 11:15 Rate is 154 beats/min. Rhythm is irregularly irregular, A fib. QRS Orient is Normal. QRS pc interval is normal. QT interval is normal. Q waves are Old in lead III. T waves are Normal. ST Segment is depressed in leads V4, V5, V6, <1mm. Clinical impression: Nonspecific ST-T changes, Atrial Fibrillation with RVR, and Inferior HI - age indeterminate. Administered Medications: 12:00 Drug: Metoprolol 50 mg [metoprolol tartrate 25 mg tablet (2 tabs)] Route: PO; jo3 12:00 Drug: Metoprolol 5 mg [metoprolol 5 mg/5 mL intravenous solution (5 mL)] Route: IVP; jo3 Site: left antecubital; 12:04 Follow up: BP 143 / 92; Pulse 124 bpm jo3 12:05 Drug: Metoprolol 5 mg [metoprolol 5 mg/5 mL intravenous solution (5 mL)] Route: IVP; jo3 Site: left antecubital; 12:09 Follow up: BP 145 / 85; Pulse 100 bpm jo3 12:10 Drug: Metoprolol 5 mg [metoprolol 5 mg/5 mL intravenous solution (5 mL)] Route: IVP; jo3 Site: left antecubital; 12:15 Follow up: BP 134 / 79; Pulse 94 bpm jo3 15:09 Drug: amiodarone- Rapid load (mix in 100mL of NS) 150 mg [amiodarone 150 mg/100 mL (1.5 jo3 mg/mL) in dextrose, iso-osmotic IV] Route: IV; Rate: 600 mL/hr; Infused Over: 10 mins; Site: left antecubital; 15:25 Follow up: IV Status: Completed infusion jo3 16:00 Drug: amiodarone- Rapid load (mix in 100mL of NS) 150 mg [amiodarone 150 mg/100 mL (1.5 jo3 mg/mL) in dextrose, iso-osmotic IV] Route: IV; Rate: 600 mL/hr; Infused Over: 10 mins; Site: left antecubital; 16:10 Follow up: IV Status: Completed infusion jo3 17:14 Drug: Metoprolol 50 mg [metoprolol tartrate 50 mg tablet (1 tabs)] Route: PO; pml 17:25 Follow up: Response: Med's dispensed home pml 17:15 Drug: Enoxaparin (1mg/kg) 100 mg [enoxaparin 100 mg/mL subcutaneous syringe (1 mL)] pml {Co-Signature: [email or web address] (Kizzy Thomas RN).} Route: Sub-Q; Site: left lower abdomen; 17:15 Drug: amiodarone 200 mg [amiodarone 200 mg tablet (1 tabs)] Route: PO; pml 17:25 Follow up: Response: Med's dispensed home pml Critical Care Time: 16:59 Critical care time: Bedside Care: 35 minutes, Consultation: 20 minutes, Family pc Intervention: 15 minutes. Total time: 70 minutes Signatures: Dispatcher [employer] Lyle Smith MD MD pc Thomas, Yolanda, [employer] Instrument Technician Unit deg García Paulino, RN RN dwg Mariah Lacy, Reg Reg Kizzy Naranjo RN RN Jane Pineda,RN RN Aye Garza [email or web address] Kizzy Thomas RN [id number] The chart was reviewed and I authenticate all verbal orders and agree with the evaluation and treatment provided.Corrections: (The following items were deleted from the chart) 11:39 11:13 ECG WITH READING ER PHYS+CARDIAG ordered. EDMS EDMS 12:14 11:12 PMHx: none; marco antonio hernández Attachments: 14:38 [facility] Payment Agreement jp5 05/29 11:20 ECG/EKG gb Chart Complete MTDD
--- NOTE | 2016-05-30 18:28 | EDDOCDS ---
Nurse's Notes [facility] Name: Oly Jolly Age: 66 yrs Sex: Female : 1950 Arrival Date: 05/28/2016 Time: 10:57 Bed 4 Private MD: Dennis Diagnosis: Persistent atrial fibrillation;Type 2 diabetes mellitus with hyperglycemia Presentation: 05/28 11:08 Presenting complaint: Patient states: Started having palpitations last evening at jo3 approximately 1930. Fell asleep and awakened this morning with intermittent palpitations. Have been consistent since 0900. Denies CP/SOB. Adult Sepsis Screening: The patient does not have new or worsening altered mentation. Patient's respiratory rate is less than 22. Systolic blood pressure is greater than 100. Patient has a qSOFA score of 0- Negative Sepsis Screen. Suicide/Homicide risk assessment- the patient denies having any suicidal and/or homicidal ideations and does not present with any other emotional, behavioral or mental health complaints. Status: Patient is not a claims service adjustor or dependent. Transition of care: patient was not received from another setting of care. 11:08 Acuity: RA Level 2 jo3 11:08 Method Of Arrival: Walkin/Carried/Asstd jo3 11:08 Red Flag criteria, patient assessed and taken directly to a bed. mk4 Triage Assessment: 11:12 General: Appears in no apparent distress, comfortable, Behavior is appropriate for age, jo3 cooperative. Pain: Denies pain. The patient is triaged at the bedside. See Assessment in Nurses Notes section of ED record. Neurological: Level of Consciousness is awake, alert, Oriented to person, place, time. 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 Respiratory: Airway is patent Respiratory effort is even, unlabored, Breath sounds are clear bilaterally. Derm: Skin is pink, warm & dry. Historical: - Allergies: No known drug Allergies; - Home Meds: 1. none - PMHx: Type 2 DM - refused treatment, High Cholesterol - refused treatment; - PSHx: Appendectomy; Hysterectomy; Tonsillectomy; x 3; - The history from nurses notes was reviewed: and elements of the historical information I have obtained differs from that reported to nursing. - Social history: No barriers to communication noted, The patient speaks fluent Setswana, Speaks appropriately for age, Smoking status: Patient states former smoker of tobacco. - Family history: Not pertinent. - : The pt / caregiver states he / she is not on anticoagulants. Home medication list is obtained from the patient. - Hospitalizations: : No recent hospitalization is reported. - Exposure Risk Screening:: None identified. - Immunization history:: All immunizations up-to-date. - Social history:: the patient is a non-smoker, the patient does not drink alcohol. Screenin:29 Screening information is obtained from the patient. Fall risk: No risks identified. jo3 Assistance ADL's: requires no assistance with activities of daily living. Abuse/DV Screen: The patient / caregiver reports he/she is: not in a situation that causes fear, pain or injury. Nutritional screening: No deficits noted. home support is adequate. 14:52 Advance Directives: Currently, there is no health care proxy. pml Assessment: 11:29 General: Appears in no apparent distress, comfortable, Behavior is appropriate for age, jo3 cooperative, pleasant. Pain: Denies pain. Neurological: Level of Consciousness is awake, alert, Oriented to person, place, time. Cardiovascular: Rhythm is atrial fibrillation with rapid ventricular response. Respiratory: Airway is patent Respiratory effort is even, unlabored, Breath sounds are clear bilaterally. Denies shortness of breath. Derm: Skin is pink, warm & dry. 12:31 Reassessment: Patient appears in no apparent distress at this time. Patient denies pain jo3 at this time. Patient states feeling better. Reports that palpitations have subsided. Rhythm remains atrial fib at a rate of 90-115 approximately. Awaiting full response to medication. Aware of plan of care . 13:40 Reassessment: Patient appears in no apparent distress at this time. Patient denies pain jo3 at this time. Labs drawn and sent by this administrative underwriter. Pt resting quietly on stretcher in state of comfort. Awaiting results for disposition. Aware of plan of care. at bedside . 14:30 Reassessment: Patient appears in no apparent distress at this time. Patient denies pain jo3 at this time. Remains on stretcher at this time. Awaiting consult with cardiology at this time for disposition. Aware of plan of care . 15:25 General: Appears in no apparent distress, comfortable, Behavior is appropriate for age, jo3 cooperative. Neurological: Level of Consciousness is awake, alert, Oriented to person, place, time. Cardiovascular: Rhythm is atrial fibrillation Other rate in 80s primarily Chest pain is denied. Respiratory: Airway is patent Respiratory effort is even, unlabored. Derm: Skin is pink, warm & dry. 16:45 General: Appears in no apparent distress, comfortable, Behavior is appropriate for age, jo3 cooperative, pleasant. General: Awaiting disposition with at bedside. Aware of plan of care . Neurological: Level of Consciousness is awake, alert, Oriented to person, place, time. Cardiovascular: Rhythm is atrial fibrillation. Respiratory: Airway is patent Respiratory effort is even, unlabored. Derm: Skin is pink, warm & dry. 17:25 General: Appears in no apparent distress, comfortable, Behavior is appropriate for age, pml cooperative. Pain: Denies pain. Neurological: Level of Consciousness is awake, alert, Oriented to person, place, time. Cardiovascular: Capillary refill < 3 seconds Rhythm is atrial fibrillation. Respiratory: Airway is patent Respiratory effort is even, unlabored. Derm: Skin is pink, warm & dry. Vital Signs: 11:00 BP 146 / 98; Pulse 145; Resp 16; Temp 96.9(O); Pulse Ox 98% ; Weight 99.79 kg; Height 6 cmb ft. 0 in. (182.88 cm); Pain 0/10; 11:07 BP 137 / 81 (auto/); jo3 11:07 Pulse 156 MON; jo3 11:22 BP 143 / 92 (auto/); jo3 11:22 Pulse 148 MON; Pulse Ox 95% ; jo3 11:37 BP 130 / 84 (auto/); jo3 11:37 Pulse 148 MON; Pulse Ox 95% ; jo3 11:52 BP 140 / 92 (auto/); jo3 11:52 Pulse 152 MON; Pulse Ox 95% ; jo3 12:04 BP 143 / 92; Pulse 124; jo3 12:07 BP 146 / 84 (auto/); jo3 12:07 Pulse 122 MON; jo3 12:09 BP 143 / 92 (auto/); jo3 12:09 Pulse 124 MON; jo3 12:09 BP 145 / 85; Pulse 100; jo3 12:15 BP 134 / 79; Pulse 94; jo3 12:18 BP 145 / 85 (auto/); jo3 12:18 Pulse 100 MON; jo3 12:22 BP 134 / 79 (auto/); jo3 12:22 Pulse 102 MON; jo3 12:37 BP 127 / 77 (auto/); jo3 12:37 Pulse 88 MON; Pulse Ox 95% ; jo3 12:52 BP 126 / 59 (auto/); jo3 12:52 Pulse 92 MON; Pulse Ox 95% ; jo3 13:07 BP 116 / 61 (auto/); jo3 13:07 Pulse 90 MON; Pulse Ox 95% ; jo3 13:22 BP 119 / 57 (auto/); jo3 13:22 Pulse 92 MON; Pulse Ox 93% ; jo3 13:37 BP 124 / 80 (auto/); jo3 13:37 Pulse 94 MON; Pulse Ox 96% ; jo3 13:52 BP 118 / 68 (auto/); jo3 13:52 Pulse 86 MON; Pulse Ox 96% ; jo3 14:22 BP 126 / 71 (auto/); jo3 14:22 Pulse 88 MON; Pulse Ox 95% ; jo3 14:37 BP 127 / 63 (auto/); jo3 14:39 Pulse 88 MON; Pulse Ox 95% ; jo3 14:52 BP 122 / 70 (auto/); pml 14:52 Pulse 92 MON; Pulse Ox 95% ; pml 15:22 BP 126 / 59 (auto/); pml 15:22 Pulse 82 MON; pml 16:51 Pulse 100 MON; pml 16:51 BP 146 / 90 (auto/); pml 17:26 BP 145 / 95; Pulse 95; Resp 18; Temp 97.2; Pulse Ox 96% on R/A; Pain 0/10; pml 11:00 Body Mass Index 29.84 (99.79 kg, 182.88 cm) cmb Vitals: 11:00 Log In Time: May 28, 2016 at 10:45. cmb ED Course: 10:58 Patient visited by Isabel Reddy. cmb 10:58 Patient moved to Waiting cmb 10:59 Dennis is Private Physician. cmb 11:01 RN notified that patient meets Red Flag criteria. cmb 11:04 Patient moved to 4 jo3 11:10 Triage Initiated jo3 11:15 EKG done. (by ED staff). Reviewed by Lyle Bustamante MD. ct3 11:18 Patient visited by Vannesa Cornell PCA. ct3 11:18 Accompanied by Family Member, Patient has correct armband on for positive ct3 identification. Placed in gown. Bed in low position. Call light in reach. Side rails up X2. process worker on. Pulse ox on. NIBP on. 11:29 The patient / caregiver is instructed regarding the plan of care and ED course. jo3 11:29 Basic Metabolic Profile Sent. jo3 11:29 CBC with Diff Sent. jo3 11:29 Cardiac Injury Profile Sent. jo3 11:29 Troponin Sent. jo3 11:29 Inserted saline lock: 18 gauge in left antecubital area. Labs drawn. (by ED staff). jo3 Sent per order to lab. 11:30 Patient visited by Kizzy Garcia RN. jo3 11:33 Lyle Bustamante MD is Attending Physician. pc 11:51 Patient visited by Lyle Bustamante MD. pc 12:32 Patient visited by Kizzy Garcia RN. jo3 12:33 A1C Sent. jo3 13:02 Chest, 1 View Returned. EDMS 13:21 Patient visited by Vannesa Cornell PCA. ct3 13:35 CARDIAC MARKER PANEL Sent. jo3 14:02 Patient visited by Kizzy Garcia RN. jo3 14:38 [facility] Payment Agreement was scanned into [employer] and attached to record. jp5 14:51 Patient visited by Vannesa Cornell PCA. ct3 14:52 Patient name changed from Oly\S\\S\Rik\S\ to Oly\S\Karie\S\Rik. EDMS 14:52 Discontinued lock intact, bleeding controlled, pressure dressing applied, No pml redness/swelling at site. No procedures done that require assistance. 15:43 Patient visited by Kizzy Garcia RN. jo3 16:46 Patient visited by Kizzy Garcia RN. jo3 17:03 Joshua Collins MD is Referral Physician. pc 05/29 07:41 EKG-ADULT Returned. EDMS 11:20 ECG/EKG was scanned into [employer] and attached to record. gb Administered Medications: 05/28 12:00 Drug: Metoprolol 50 mg [metoprolol tartrate 25 mg tablet (2 tabs)] Route: PO; jo3 12:00 Drug: Metoprolol 5 mg [metoprolol 5 mg/5 mL intravenous solution (5 mL)] Route: IVP; jo3 Site: left antecubital; 12:04 Follow up: BP 143 / 92; Pulse 124 bpm jo3 12:05 Drug: Metoprolol 5 mg [metoprolol 5 mg/5 mL intravenous solution (5 mL)] Route: IVP; jo3 Site: left antecubital; 12:09 Follow up: BP 145 / 85; Pulse 100 bpm jo3 12:10 Drug: Metoprolol 5 mg [metoprolol 5 mg/5 mL intravenous solution (5 mL)] Route: IVP; jo3 Site: left antecubital; 12:15 Follow up: BP 134 / 79; Pulse 94 bpm jo3 15:09 Drug: amiodarone- Rapid load (mix in 100mL of NS) 150 mg [amiodarone 150 mg/100 mL (1.5 jo3 mg/mL) in dextrose, iso-osmotic IV] Route: IV; Rate: 600 mL/hr; Infused Over: 10 mins; Site: left antecubital; 15:25 Follow up: IV Status: Completed infusion jo3 16:00 Drug: amiodarone- Rapid load (mix in 100mL of NS) 150 mg [amiodarone 150 mg/100 mL (1.5 jo3 mg/mL) in dextrose, iso-osmotic IV] Route: IV; Rate: 600 mL/hr; Infused Over: 10 mins; Site: left antecubital; 16:10 Follow up: IV Status: Completed infusion jo3 17:14 Drug: Metoprolol 50 mg [metoprolol tartrate 50 mg tablet (1 tabs)] Route: PO; pml 17:25 Follow up: Response: Med's dispensed home pml 17:15 Drug: Enoxaparin (1mg/kg) 100 mg [enoxaparin 100 mg/mL subcutaneous syringe (1 mL)] pml {Co-Signature: [email or web address] (Kizzy Thomas RN).} Route: Sub-Q; Site: left lower abdomen; 17:15 Drug: amiodarone 200 mg [amiodarone 200 mg tablet (1 tabs)] Route: PO; pml 17:25 Follow up: Response: Med's dispensed home pml Order Results: Lab Order: Basic Metabolic Profile; SPEC'M 05/28/16 11:26 Test: GLUCOSE, FASTING; Value: 413; Range: 80-110; Abnormal: Above upper panic limits; Units: MG/DL; Status: F Test: BLOOD UREA NITROGEN; Value: 20; Range: 7-18; Abnormal: Above high normal; Units: MG/DL; Status: F Test: CREATININE FOR GFR; Value: 1.14; Range: 0.55-1.02; Abnormal: Above high normal; Units: MG/DL; Status: F Test: GLOMERULAR FILTRATION RATE; Value: 50.9; Range: >45; Status: F Test: SODIUM LEVEL; Value: 136; Range: 136-145; Units: MEQ/L; Status: F Test: POTASSIUM SERUM; Value: 4.3; Range: 3.5-5.1; Units: MEQ/L; Status: F Test: CHLORIDE LEVEL; Value: 99; Range: 98-107; Units: MEQ/L; Status: F Test: CARBON DIOXIDE LEVEL; Value: 28; Range: 21-32; Units: MEQ/L; Status: F Test: ANION GAP; Value: 9; Range: 8-16; Units: MEQ/L; Status: F Test: CALCIUM LEVEL; Value: 8.7; Range: 8.8-10.2; Abnormal: Below low normal; Units: MG/DL; Status: F Test Note: ; Units are mL/min/1.73 m2 Chronic Kidney Disease Staging per NKF: Stage I & II GFR >=60 Normal to Mildly Decreased Stage III GFR 30-59 Moderately Decreased Stage IV GFR 15-29 Severely Decreased Stage V GFR <15 Very Little GFR Left ESRD GFR <15 on FILM WRITER Lab Order: CBC with Diff; SPEC'M 05/28/16 11:26 Test: WHITE BLOOD COUNT; Value: 12.3; Range: 4.0-10.0; Abnormal: Above high normal; Units: K/mm3; Status: F Test: RED BLOOD COUNT; Value: 5.74; Range: 4.00-5.40; Abnormal: Above high normal; Units: M/mm3; Status: F Test: HEMOGLOBIN; Value: 16.1; Range: 12.0-16.0; Abnormal: Above high normal; Units: g/dl; Status: F Test: HEMATOCRIT; Value: 49.1; Range: 36.0-47.0; Abnormal: Above high normal; Units: %; Status: F Test: MEAN CORPUSCULAR VOLUME; Value: 85.5; Range: 80.0-96.0; Units: fl; Status: F Test: MEAN CORPUSCULAR HEMOGLOBIN; Value: 28.0; Range: 27.0-33.0; Units: pg; Status: F Test: MEAN CORPUSCULAR HGB CONC; Value: 32.8; Range: 32.0-36.5; Units: g/dl; Status: F Test: RED CELL DISTRIBUTION WIDTH; Value: 14.5; Range: 11.5-14.5; Units: %; Status: F Test: PLATELET COUNT, AUTOMATED; Value: 320; Range: 150-450; Units: k/mm3; Status: F Test: NEUTROPHILS %; Value: 78.5; Range: 36.0-66.0; Abnormal: Above high normal; Units: %; Status: F Test: LYMPH %; Value: 11.5; Range: 24.0-44.0; Abnormal: Below low normal; Units: %; Status: F Test: MONO %; Value: 5.8; Range: 0.0-5.0; Abnormal: Above high normal; Units: %; Status: F Test: EOS %; Value: 1.6; Range: 0.0-3.0; Units: %; Status: F Test: BASO %; Value: 1.4; Range: 0.0-1.0; Abnormal: Above high normal; Units: %; Status: F Test: LARGE UNSTAINED CELL %; Value: 1.3; Range: 0.0-4.0; Units: %; Status: F Test: NEUTROPHILS #; Value: 9.7; Range: 1.8-7.7; Abnormal: Above high normal; Units: K/mm3; Status: F Test: LYMPH #; Value: 1.6; Range: 1.5-4.5; Units: K/mm3; Status: F Test: MONO #; Value: 0.7; Range: 0.0-0.8; Units: K/mm3; Status: F Test: EOS #; Value: 0.2; Range: 0.0-0.50; Units: K/mm3; Status: F Test: BASO #; Value: 0.2; Range: 0.0-0.2; Units: K/mm3; Status: F Test: LARGE UNSTAINED CELL #; Value: 0.2; Range: 0.0-0.4; Units: K/mm3; Status: F Lab Order: Cardiac Injury Profile; [facility] 05/28/16 11:26 Test: CPK CREATINE PHOSPHOKINASE; Value: 64; Range: 26-192; Units: U/L; Status: F Test: CK-MB VALUE MASS; Value: 3.2; Range: 0.0-3.6; Units: NG/ML; Status: F Test: MB/CK RELATIVE INDEX; Value: 5.00; Range: < OR =4; Abnormal: Above high normal; Status: F Test Note: ; DIAGNOSIS CRITERIA MMB ng/ml Relative Index (RI) NON-AMI < or = 5 N/A [place]OLAN [place]ONE > 5 < or = 4 AMI > 5 > 4 Lab Order: Troponin; [facility] 11:26 Test: TROPONIN I; Value: 0.14; Range: < 0.10; Abnormal: Above high normal; Units: NG/ML; Status: F Test Note: ; Troponin I Reference Interval for English TV LOCI: 99th Percentile= 0.00-0.045 ng/ml Risk Stratification: <= 0.10 ng/ml Decreased Risk for Adverse Clinical Events. 0.10-1.50 ng/ml Increased Risk for Adverse Clinical Events. Evaluation of additional criterion and/or repeat testing in 2-6 hours is suggested to rule out myocardial damage. >= 1.50 ng/ml Indicative of Myocardial Injury. Lab Order: TSH with Free T4; SPEC05/28/16 11:51 Test: THYROID STIMULATING HORMONE; Value: 1.140; Range: 0.358-3.740; Units: uIU/ML; Status: F Test: FREE T4; Value: 1.00; Range: 0.76-1.46; Units: NG/DL; Status: F Lab Order: A1C; [facility] 05/28/16 11:26 Test: HEMOGLOBIN A1c; Value: 12.7; Range: 4.5-6.2; Abnormal: Above high normal; Units: %; Status: F Test: ESTIMATED AVERAGE GLUCOSE; Value: 318; Range: 60-110; Abnormal: Above high normal; Units: MG/DL; Status: F Lab Order: CARDIAC MARKER PANEL; SPEC'M 05/28/16 13:35 Test: CPK CREATINE PHOSPHOKINASE; Value: 57; Range: 26-192; Units: U/L; Status: F Test: CK-MB VALUE MASS; Value: 2.9; Range: 0.0-3.6; Units: NG/ML; Status: F Test: MB/CK RELATIVE INDEX; Value: 5.08; Range: < OR =4; Abnormal: Above high normal; Status: F Test: TROPONIN I; Value: 0.20; Range: < 0.10; Abnormal: High; Units: NG/ML; Status: F Test Note: ; DIAGNOSIS CRITERIA MMB ng/ml Relative Index (RI) NON-AMI < or = 5 N/A N[place]AN ZONE > 5 < or = 4 AMI > 5 > 4 Radiology Order: EKG-ADULT Test: EKG-ADULT REASON FOR EXAMINATION: palpitations; Stationary ECG Study; [facility] - ED; ; Test Date: 2016-05-28; Pat Name: OLY JOLLY Department:; Room: -; 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; : 1950 Requested By: Lyle Guerrero; Order Number: [id number] Reading MD: Modesta Nowak; Measurements; Intervals [place]; Rate: 154 P:; ME: 0 QRS: 24; QRSD: 80 T: 33; QT: 258; QTc: 413; Interpretive Statements; ATRIAL FIBRILLATION WITH RAPID VENTRICULAR RESPONSE; NONSPECIFIC ST T-WAVE ABNORMALITY; ABNORMAL RHYTHM ECG; NO PRIOR FOR COMPARISON; Electronically Signed On 05-29-2016 7:22:26 EST by Modesta Nowak; Radiology Order: Chest, 1 View Test: Chest, 1 View REASON FOR EXAMINATION: palpitations; AP portable chest radiograph 05/28/2016; ; Indication: Palpitations; ; Comparison: None; ; Findings: Cardiomediastinal silhouette is within normal limits. There are no; focal areas of lung consolidation or pleural effusions. Bones and soft tissues; grossly normal.; ; Impression: No acute cardiopulmonary process. Study somewhat limited by AP; portable technique; ; ; Signed by; Emelina Kwon MD 05/28/2016 12:19 P; Outcome: 17:04 Discharge ordered by Provider. pc 17:27 Discharge Assessment: Patient awake, alert and oriented x 3. No cognitive and/or pml functional deficits noted. Patient verbalized understanding of disposition instructions. patient administered narcotics - no. The following High Risk Discharge criteria are identified: None. Discharged to home ambulatory, with significant other. Condition: good Condition: stable. Discharge instructions given to patient, Instructed on discharge instructions, follow up and referral plans. medication usage, Demonstrated understanding of instructions, medications, Pt was receptive of discharge instructions/ teaching. Prescriptions given X 1. No special radiology studies were completed. Property sent home with patient. 17:27 Patient left the ED. pml Signatures: Dispatcher [employer] EDMS Lyle Bustamante MD MD pc Barnhardt, Gloria, Reg Reg Kizzy NaranjoRN RN jo3 Vannesa Cornell, BRASS CUTTER BRASS CUTTER ct3 Jane Nick,RN RN Isabel Crisostomo Margaret RN RN [email or web address] Aye Jha RN [email or web address] Corrections: (The following items were deleted from the chart) 12:14 11:12 PMHx: none; jo3 Chart Complete MTDD
== END 2016-05-28 17:27 | disposition home or self-care (01) ==
LOC: M ED 10:57
DX: I48.1 Persistent atrial fibrillation (principal); E11.65 Type 2 diabetes mellitus with hyperglycemia; E78.00 Pure hypercholesterolemia, unspecified
CPT/HCPCS: 36415; 71010; 80048; 82550; 82553; 83036; 84439; 84443; 85025; 93005; 93041; 96365; 96372; 96375; 96376; 99285; J1650

== ENCOUNTER 2016-05-29 07:10 | Emergency (ER) | payer OTHER ==
[2016-05-29] MEDS ORDERED: METOPROLOL 5 MG/5 ML VIAL As Ordered ONE (08:12)
--- NOTE | 2016-05-29 08:50 | ECGEPIP ---
Stationary ECG Study [facility] - ED Test Date: 2016-05-29 Pat Name: GALO CAMERON Department: Room: - Gender: F Special Officer Automat: johnny : 1950 Requested By: GUERDA GUERRA Order Number: [id number] Reading MD: Lyle Bustamante Measurements Intervals [place] Rate: 113 P: [place]: 0 QRS: 28 QRSD: 86 T: 1 QT: 305 QTc: 419 Interpretive Statements ATRIAL FIBRILLATION WITH RAPID VENTRICULAR RESPONSE Electronically Signed On 05-29-2016 8:50:26 EST by Lyle Bustamante
[2016-05-29] MEDS ORDERED: FLECAINIDE 50MG TABLET PO ONE (09:00)
[2016-05-29 10:21] LABS: CALCIUM LEVEL 8.5 MG/DL (8.8-10.2); CREATININE FOR GFR 1.01 MG/DL (0.55-1.02); GLOMERULAR FILTRATION RATE 58.6 (>45); POTASSIUM SERUM 4.3 MEQ/L (3.5-5.1)
[2016-05-29] MEDS ORDERED: APIXABAN 5 MG TAB (ELIQUIS) As Ordered ONE (14:20)
--- NOTE | 2016-05-29 14:47 | EDDOCDS ---
Nurse's Notes [facility] Name: Oly Cameron Age: 66 yrs Sex: Female : 1950 Arrival Date: 05/29/2016 Time: 07:10 Bed TR7 Private MD: Diagnosis: Persistent atrial fibrillation Presentation: 05/29 07:15 Presenting complaint: Patient states: having some palpitations. seen here yesterday for dy elevated blood sugars and new onset a-fib. no change today. here for recheck. Adult Sepsis Screening: The patient does not have new or worsening altered mentation. Patient's respiratory rate is less than 22. Systolic blood pressure is greater than 100. Patient has a qSOFA score of 0- Negative Sepsis Screen. Suicide/Homicide risk assessment- the patient denies having any suicidal and/or homicidal ideations and does not present with any other emotional, behavioral or mental health complaints. Status: Patient is not a employee services manager or dependent. Transition of care: patient was not received from another setting of care. 07:15 Acuity: RA Level 3 dy 07:15 Method Of Arrival: Walkin/Carried/Asstd dy Triage Assessment: 07:17 General: Appears in no apparent distress. Pain: Denies pain. dy Historical: - Allergies: No known drug Allergies; - Home Meds: 1. metoprolol tartrate 50 mg Oral tab 1 tab 2 times per day (Last dose: 05/29/2016 06:00) 2. amiodarone 200 mg Oral tab 1 tab once daily (Last dose: 05/28/2016 17:15) - PMHx: Type 2 DM - refused treatment, High Cholesterol - refused treatment; - PSHx: Appendectomy; Hysterectomy; Tonsillectomy; x 3; - Social history: Smoking status: Patient states former smoker of tobacco. No barriers to communication noted, The patient speaks fluent Dutch, Speaks appropriately for age. - Family history: Not pertinent. - : The pt / caregiver states he / she is not on anticoagulants. Home medication list is obtained from the patient. - Exposure Risk Screening:: None identified. Screenin:41 Screening information is obtained from the patient. Fall risk: No risks identified. ml6 Assistance ADL's: requires no assistance with activities of daily living. Abuse/DV Screen: The patient / caregiver reports he/she is: not in a situation that causes fear, pain or injury. Nutritional screening: No deficits noted. Advance Directives: Currently, there is no health care proxy. home support is adequate. Assessment: 07:20 General: Appears in no apparent distress, comfortable, Behavior is appropriate for age, ml6 cooperative. Pain: Denies pain. Neurological: No deficits noted. Level of Consciousness is awake, alert, Oriented to person, place, time, Print Graphic Designer are equal bilaterally. Cardiovascular: No deficits noted. Capillary refill < 3 seconds is brisk in bilateral fingers toes Heart tones S1 S2 present. Respiratory: No deficits noted. Airway is patent Respiratory effort is even, unlabored, Respiratory pattern is regular, symmetrical, Breath sounds are clear bilaterally. GI: Abdomen is obese, Bowel sounds present X 4 quads. 08:20 Reassessment: Patient appears in no apparent distress at this time. Patient denies pain ml6 at this time. Patient states feeling better. Patient states symptoms have improved. patient has no c/o pain ordiscomfort. 09:20 Reassessment: Patient appears in no apparent distress at this time. Patient denies pain ml6 at this time. Patient states feeling better. Patient states symptoms have improved. 10:20 General: Appears in no apparent distress, comfortable, Behavior is appropriate for age, ml6 cooperative. Cardiovascular: Capillary refill < 3 seconds is brisk in bilateral fingers toes Heart tones S1 S2 present Edema is absent. Pulses are all present. Rhythm is atrial fibrillation Chest pain is denied. 11:20 Reassessment: Patient appears in no apparent distress at this time. Patient denies pain ml6 at this time. Patient states feeling better. Patient states symptoms have improved. patient sleeping. 12:22 Reassessment: Patient appears in no apparent distress at this time. Patient denies pain ml6 at this time. Patient states feeling better. Patient states symptoms have improved. patient sleeping resp unlabored. 13:21 General: Appears in no apparent distress, comfortable, Behavior is appropriate for age, ml6 cooperative. Pain: Denies pain. Neurological: No deficits noted. Level of Consciousness is awake, alert, Oriented to person, place, time, Print Graphic Designer are equal bilaterally. Cardiovascular: No deficits noted. Capillary refill < 3 seconds is brisk in bilateral fingers toes Heart tones S1 S2 present Edema is absent. Pulses are all present. Rhythm is atrial fibrillation Chest pain is denied. Respiratory: No deficits noted. GI: No deficits noted. 14:42 General: Appears in no apparent distress, comfortable. Cardiovascular: Capillary refill ml6 < 3 seconds is brisk in bilateral fingers toes Heart tones S1 S2 present Edema is absent. Pulses are all present. Rhythm is atrial fibrillation Chest pain is denied. Respiratory: No deficits noted. Vital Signs: 07:17 BP 174 / 97; Pulse 131; Resp 20; Temp 98.1(TE); Pulse Ox 93% on R/A; Weight 99.79 kg dy (R); Height 6 ft. (182.88 cm) (R); 08:00 BP 152 / 89 (auto/); ml6 08:00 Pulse 108 MON; Resp 16; Pulse Ox 96% on R/A; ml6 08:15 BP 162 / 78 (auto/); ml6 08:15 Pulse 105 MON; Resp 16; Pulse Ox 95% on R/A; Pain 0/10; ml6 08:30 BP 150 / 80 (auto/); ml6 08:30 Pulse 113 MON; Resp 16; Pulse Ox 94% on R/A; Pain 0/10; ml6 08:35 BP 140 / 92 (auto/); ml6 08:35 Pulse 107 MON; Resp 16; Pulse Ox 95% on R/A; ml6 08:40 BP 144 / 77 (auto/); ml6 08:40 Pulse 106 MON; Resp 16; Pulse Ox 95% on R/A; ml6 08:45 BP 148 / 82 (auto/); ml6 08:45 Pulse 106 MON; Resp 16; Pulse Ox 94% on R/A; ml6 08:50 BP 153 / 93 (auto/); ml6 08:50 Pulse 109 MON; Resp 16; Pulse Ox 95% on R/A; ml6 08:55 BP 130 / 83 (auto/); ml6 08:55 Pulse 101 MON; Resp 16; Pulse Ox 93% on R/A; ml6 09:00 BP 133 / 89 (auto/); ml6 09:00 Pulse 104 MON; Resp 16; Pulse Ox 92% on R/A; Pain 0/10; ml6 09:05 BP 145 / 80 (auto/); ml6 09:05 Pulse 104 MON; Resp 16; Pulse Ox 93% on R/A; ml6 09:10 BP 132 / 74 (auto/); ml6 09:10 Pulse 102 MON; Resp 16; Pulse Ox 94% on R/A; ml6 09:15 BP 140 / 73 (auto/); ml6 09:15 Pulse 112 MON; Resp 16; Pulse Ox 93% on R/A; ml6 09:20 BP 128 / 75 (auto/); ml6 09:20 Pulse 108 MON; Resp 16; Pulse Ox 94% on R/A; ml6 09:25 BP 131 / 81 (auto/); ml6 09:25 Pulse 101 MON; Resp 16; Temp 98.3(O); Pulse Ox 93% on R/A; Pain 0/10; ml6 09:30 BP 146 / 80 (auto/); ml6 09:30 Pulse 124 MON; Resp 16; Pulse Ox 98% on R/A; Pain 0/10; ml6 09:35 BP 153 / 75 (auto/); ml6 09:35 Pulse 112 MON; Resp 18; Pulse Ox 94% on R/A; ml6 09:45 BP 156 / 91 (auto/); ml6 09:45 Pulse 111 MON; Resp 18; Pulse Ox 93% on R/A; ml6 10:00 BP 167 / 72 (auto/); ml6 10:00 Pulse 116 MON; Resp 16; Pulse Ox 94% on R/A; ml6 10:15 BP 134 / 68 (auto/); ml6 10:15 Pulse 117 MON; Resp 18; Pulse Ox 95% on R/A; ml6 10:30 BP 144 / 67 (auto/); ml6 10:30 Pulse 117 MON; Resp 18; Pulse Ox 94% on R/A; ml6 10:45 BP 119 / 63 (auto/); ml6 10:45 Pulse 115 MON; Resp 18; Pulse Ox 94% on R/A; ml6 11:00 BP 125 / 63 (auto/); ml6 11:00 Pulse 114 MON; Resp 18; Pulse Ox 93% on R/A; ml6 11:15 BP 131 / 74 (auto/); ml6 11:15 Pulse 111 MON; Resp 16; Pulse Ox 95% on R/A; ml6 11:30 BP 126 / 92 (auto/); ml6 11:30 Pulse 114 MON; Resp 18; Pulse Ox 97% on R/A; ml6 11:45 BP 135 / 82 (auto/); ml6 11:45 Pulse 110 MON; Resp 18; Pulse Ox 97% on R/A; ml6 12:00 BP 131 / 101 (auto/); ml6 12:00 Pulse 114 MON; Resp 18; Pulse Ox 98% on R/A; ml6 12:30 BP 138 / 67 (auto/); ml6 12:30 Pulse 114 MON; Resp 15; Pulse Ox 97% on R/A; ml6 12:45 BP 132 / 61 (auto/); ml6 12:45 Pulse 116 MON; Resp 16; Pulse Ox 96% on R/A; Pain 0/10; ml6 13:15 BP 124 / 71 (auto/); ml6 13:15 Pulse 120 MON; Resp 16; Pulse Ox 93% on R/A; ml6 14:42 BP 134 / 85; Pulse 102; Resp 16; Temp 98.7(O); Pulse Ox 98% on R/A; Pain 0/10; ml6 07:17 Body Mass Index 29.84 (99.79 kg, 182.88 cm) dy Vitals: 07:17 Log In Time: May 29, 2016 at 07:16. dy ED Course: 07:13 Patient visited by Lb Joseph Reg. pm4 07:13 Patient moved to Waiting pm4 07:17 Triage Initiated dy 07:22 Vandana Gauthier,RN is Primary Nurse. dy 07:22 Patient moved to 3 dy 07:23 Alejandra Jeffrey DO is PHCP. jo4 07:23 Modesta Nowak MD is Attending Physician. jo4 07:31 Patient visited by Alejandra Jeffrey DO. jo4 07:41 Patient visited by Joel Fuller PCA. jlf 07:41 EKG done. (by ED staff). Reviewed by Modesta Nowak MD. jlf 07:42 Patient visited by Joel Fuller PCA. jlf 07:42 Pt greeted and oriented to ED. Patient advised of names of staff involved in care, jlf location of call walters, wait times and NPO status. Accompanied by Family Member, Patient has correct armband on for positive identification. Placed in gown. Bed in low position. Side rails up X2. panel monitor on. Pulse ox on. NIBP on. 07:55 Inserted peripheral IV: 18gauge IV in left antecubital area Patient tolerated the ml6 procedure well. 08:20 Patient visited by Joel Fuller PCA. jlf 08:28 [facility] Payment Agreement was scanned into [employer] and attached to record. lg 08:52 Primary Nurse role handed off by Vandana Gauthier RN jc4 08:54 Patient visited by Faisal Bullock, BRITTANY. ml6 08:54 Faisal Bullock, BRITTANY is Primary Nurse. jc4 09:06 EKG-ADULT Returned. EDMS 09:27 Patient visited by Faisal Bullock RN. ml6 10:02 Patient visited by Faisal Bullock RN. ml6 10:35 Patient visited by Faisal Bullock RN. ml6 10:54 Patient visited by Faisal Bullock RN. ml6 11:23 Patient moved to OBSERVATION sd1 13:42 Patient visited by Faisal Bullock RN. ml6 14:14 Patient visited by Nora Braxton RN. srm 14:14 Discontinued lock intact, bleeding controlled, pressure dressing applied, No srm redness/swelling at site. 14:21 Mellisa Mitchell is Referral Physician. jo4 14:21 Mynor Ruiz MD is Referral Physician. jo4 14:34 Patient moved to TR7 ml6 14:43 No procedures done that require assistance. ml6 14:45 The patient / caregiver is instructed regarding the plan of care and ED course. ml6 Administered Medications: 08:08 CANCELLED (Other Intervention Used): Metoprolol 5 mg Intraosseous every 5 minutes x3 jo4 08:11 Drug: Metoprolol 5 mg [metoprolol 5 mg/5 mL intravenous solution (5 mL)] Route: IVP; ml6 Site: left antecubital; 08:16 Drug: Metoprolol 5 mg [metoprolol 5 mg/5 mL intravenous solution (5 mL)] Route: IVP; ml6 Site: left antecubital; 08:21 Drug: Metoprolol 5 mg [metoprolol 5 mg/5 mL intravenous solution (5 mL)] Route: IVP; ml6 Site: left antecubital; 09:27 Drug: Flecainide 50 mg [flecainide 100 mg tablet (0.5 tabs)] Route: PO; ml6 14:33 Drug: Apixaban 5 mg [apixaban 2.5 mg tablet (2 tabs)] Route: PO; ml6 Order Results: Lab Order: BMP; SPEC'M 05/29/16 09:39 Test: GLUCOSE, FASTING; Value: 353; Range: 80-110; Abnormal: Above high normal; Units: MG/DL; Status: F Test: BLOOD UREA NITROGEN; Value: 21; Range: 7-18; Abnormal: Above high normal; Units: MG/DL; Status: F Test: CREATININE FOR GFR; Value: 1.01; Range: 0.55-1.02; Units: MG/DL; Status: F Test: GLOMERULAR FILTRATION RATE; Value: 58.6; Range: >45; Status: F Test: SODIUM LEVEL; Value: 140; Range: 136-145; Units: MEQ/L; Status: F Test: POTASSIUM SERUM; Value: 4.3; Range: 3.5-5.1; Units: MEQ/L; Status: F Test: CHLORIDE LEVEL; Value: 102; Range: 98-107; Units: MEQ/L; Status: F Test: CARBON DIOXIDE LEVEL; Value: 31; Range: 21-32; Units: MEQ/L; Status: F Test: ANION GAP; Value: 7; Range: 8-16; Abnormal: Below low normal; Units: MEQ/L; Status: F Test: CALCIUM LEVEL; Value: 8.5; Range: 8.8-10.2; Abnormal: Below low normal; Units: MG/DL; Status: F Test Note: ; Units are mL/min/1.73 m2 Chronic Kidney Disease Staging per NKF: Stage I & II GFR >=60 Normal to Mildly Decreased Stage III GFR 30-59 Moderately Decreased Stage IV GFR 15-29 Severely Decreased Stage V GFR <15 Very Little GFR Left ESRD GFR <15 on AIR DEFENSE ARTILLERY OFFICER Lab Order: Troponin; SPEC'M 05/29/16 09:39 Test: TROPONIN I; Value: 0.11; Range: < 0.10; Abnormal: High; Units: NG/ML; Status: F Test Note: ; Troponin I Reference Interval for [employer] LOCI: 99th Percentile= 0.00-0.045 ng/ml Risk Stratification: <= 0.10 ng/ml Decreased Risk for Adverse Clinical Events. 0.10-1.50 ng/ml Increased Risk for Adverse Clinical Events. Evaluation of additional criterion and/or repeat testing in 2-6 hours is suggested to rule out myocardial damage. >= 1.50 ng/ml Indicative of Myocardial Injury. 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 jo4 14:43 Discharge Assessment: patient administered narcotics - no. The following High Risk ml6 Discharge criteria are identified: None. Discharged to home ambulatory. Condition: improved. Discharge instructions given to patient, Instructed on discharge instructions, follow up and referral plans. medication usage, Demonstrated understanding of instructions, medications, Pt was receptive of discharge instructions/ teaching. Prescriptions given X 1. No special radiology studies were completed. Property sent home with patient. :Personal belongings accompany Pt. 14:46 Patient left the ED. ml6 Signatures: Dispatcher [employer] EDMS Modesta Nowak MD MD sd1 Nora Braxton, RN RN Efe Lawson, Reg Reg lg Rolando Quintana, Faisal Woo RN, BRITTANY SOTO ml6 Kizzy Solorio RN RN [email or web address] Joel Fuller, [employer] EVENT MARKETING MANAGER Alejandra Mayes, DO jo4 Lb Joseph, Reg Reg pm4 Corrections: (The following items were deleted from the chart) 08:54 08:50 Flecainide 50 mg PO ml6 ml6 MTDD
--- NOTE | 2016-05-29 14:47 | EDDOCDS ---
Physician Documentation [facility] Name: Oly Jolly Age: 66 yrs Sex: Female : 1950 Arrival Date: 05/29/2016 Time: 07:10 Bed TR7 Private MD: Disposition: 05/29 08:54 I have independently interviewed and examined the patient, and I agree with the sd1 investigation, diagnosis and treatment plan as documented by the Resident. Disposition: 05/29/16 14:21 Discharged to Home/Self Care. Impression: Persistent atrial fibrillation. - Condition is Stable. - Discharge Instructions: Atrial Fibrillation. - Prescriptions for Metoprolol Tartrate 50 mg Oral Tablet - take 1 tablet by ORAL route 2 times per day take with meal; 30 tablet. apixaban 5 mg Oral Tablet - take 1 tablet by ORAL route 2 times per day; 30 tablet. - Medication Reconciliation, Local Pharmacy Hours form. - Follow up: Mellisa Mitchell; When: Call to arrange an appointment. Follow up: Mynor Ruiz; When: Call to arrange an appointment. - Problem is an ongoing problem. - Symptoms are unchanged. Historical: - Allergies: No known drug Allergies; - Home Meds: 1. metoprolol tartrate 50 mg Oral tab 1 tab 2 times per day (Last dose: 05/29/2016 06:00) 2. amiodarone 200 mg Oral tab 1 tab once daily (Last dose: 05/28/2016 17:15) - PMHx: Type 2 DM - refused treatment, High Cholesterol - refused treatment; - PSHx: Appendectomy; Hysterectomy; Tonsillectomy; x 3; - Social history: Smoking status: Patient states former smoker of tobacco. No barriers to communication noted, The patient speaks fluent Bermudian, Speaks appropriately for age. - Family history: Not pertinent. - : The pt / caregiver states he / she is not on anticoagulants. Home medication list is obtained from the patient. - Exposure Risk Screening:: None identified. Vital Signs: 07:17 BP 174 / 97; Pulse 131; Resp 20; Temp 98.1(TE); Pulse Ox 93% on R/A; Weight 99.79 kg / dy 220 lbs (R); Height 6 ft. (182.88 cm) (R); 08:00 BP 152 / 89 (auto/); ml6 08:00 Pulse 108 MON; Resp 16; Pulse Ox 96% on R/A; ml6 08:15 BP 162 / 78 (auto/); ml6 08:15 Pulse 105 MON; Resp 16; Pulse Ox 95% on R/A; Pain 0/10; ml6 08:30 BP 150 / 80 (auto/); ml6 08:30 Pulse 113 MON; Resp 16; Pulse Ox 94% on R/A; Pain 0/10; ml6 08:35 BP 140 / 92 (auto/); ml6 08:35 Pulse 107 MON; Resp 16; Pulse Ox 95% on R/A; ml6 08:40 BP 144 / 77 (auto/); ml6 08:40 Pulse 106 MON; Resp 16; Pulse Ox 95% on R/A; ml6 08:45 BP 148 / 82 (auto/); ml6 08:45 Pulse 106 MON; Resp 16; Pulse Ox 94% on R/A; ml6 08:50 BP 153 / 93 (auto/); ml6 08:50 Pulse 109 MON; Resp 16; Pulse Ox 95% on R/A; ml6 08:55 BP 130 / 83 (auto/); ml6 08:55 Pulse 101 MON; Resp 16; Pulse Ox 93% on R/A; ml6 09:00 BP 133 / 89 (auto/); ml6 09:00 Pulse 104 MON; Resp 16; Pulse Ox 92% on R/A; Pain 0/10; ml6 09:05 BP 145 / 80 (auto/); ml6 09:05 Pulse 104 MON; Resp 16; Pulse Ox 93% on R/A; ml6 09:10 BP 132 / 74 (auto/); ml6 09:10 Pulse 102 MON; Resp 16; Pulse Ox 94% on R/A; ml6 09:15 BP 140 / 73 (auto/); ml6 09:15 Pulse 112 MON; Resp 16; Pulse Ox 93% on R/A; ml6 09:20 BP 128 / 75 (auto/); ml6 09:20 Pulse 108 MON; Resp 16; Pulse Ox 94% on R/A; ml6 09:25 BP 131 / 81 (auto/); ml6 09:25 Pulse 101 MON; Resp 16; Temp 98.3(O); Pulse Ox 93% on R/A; Pain 0/10; ml6 09:30 BP 146 / 80 (auto/); ml6 09:30 Pulse 124 MON; Resp 16; Pulse Ox 98% on R/A; Pain 0/10; ml6 09:35 BP 153 / 75 (auto/); ml6 09:35 Pulse 112 MON; Resp 18; Pulse Ox 94% on R/A; ml6 09:45 BP 156 / 91 (auto/); ml6 09:45 Pulse 111 MON; Resp 18; Pulse Ox 93% on R/A; ml6 10:00 BP 167 / 72 (auto/); ml6 10:00 Pulse 116 MON; Resp 16; Pulse Ox 94% on R/A; ml6 10:15 BP 134 / 68 (auto/); ml6 10:15 Pulse 117 MON; Resp 18; Pulse Ox 95% on R/A; ml6 10:30 BP 144 / 67 (auto/); ml6 10:30 Pulse 117 MON; Resp 18; Pulse Ox 94% on R/A; ml6 10:45 BP 119 / 63 (auto/); ml6 10:45 Pulse 115 MON; Resp 18; Pulse Ox 94% on R/A; ml6 11:00 BP 125 / 63 (auto/); ml6 11:00 Pulse 114 MON; Resp 18; Pulse Ox 93% on R/A; ml6 11:15 BP 131 / 74 (auto/); ml6 11:15 Pulse 111 MON; Resp 16; Pulse Ox 95% on R/A; ml6 11:30 BP 126 / 92 (auto/); ml6 11:30 Pulse 114 MON; Resp 18; Pulse Ox 97% on R/A; ml6 11:45 BP 135 / 82 (auto/); ml6 11:45 Pulse 110 MON; Resp 18; Pulse Ox 97% on R/A; ml6 12:00 BP 131 / 101 (auto/); ml6 12:00 Pulse 114 MON; Resp 18; Pulse Ox 98% on R/A; ml6 12:30 BP 138 / 67 (auto/); ml6 12:30 Pulse 114 MON; Resp 15; Pulse Ox 97% on R/A; ml6 12:45 BP 132 / 61 (auto/); ml6 12:45 Pulse 116 MON; Resp 16; Pulse Ox 96% on R/A; Pain 0/10; ml6 13:15 BP 124 / 71 (auto/); ml6 13:15 Pulse 120 MON; Resp 16; Pulse Ox 93% on R/A; ml6 14:42 BP 134 / 85; Pulse 102; Resp 16; Temp 98.7(O); Pulse Ox 98% on R/A; Pain 0/10; ml6 07:17 Body Mass Index 29.84 (99.79 kg, 182.88 cm) dy MDM: 07:30 ECG WITH READING ER PHYS+CARDIAG ordered. EDMS 07:56 Truck Cleaner ordered. jo4 08:00 Financial registration complete. mm15 08:06 BMP Ordered. EDMS 08:06 Troponin Ordered. EDMS 08:08 Metoprolol 5 mg IVP every 5 minutes; Hold for SBP < 100 or HR < 60. x3 ordered. jo4 08:28 [facility] Payment Agreement was scanned into [employer] and attached to record. lg 08:32 ED course: Patient seen and examined by me - no prior history of afib - episode of sd1 palpitations pm of 05/27 resolved then recurrence 05/28 presented to the ED - received at 12noon metoprolol 50 mg and metoprolol 5mg IV x 3 as well as amiodarone load of 300mg total patient before bed last evening took 50mg po of metoprolol and 200mg of amiodarone then metoprolol 50mg at 6am this am - patient presented with persistent afib rate low 100s - IV lopressor recheck med profile and per patient request proceed with cardioversion if no to NSR. 08:38 Flecainide 50 mg PO once ordered. jo4 08:54 Flecainide 50 mg PO once ordered. ml6 09:34 EKG-ADULT Reviewed. jo4 10:47 BMP Reviewed. sd1 10:47 Troponin Reviewed. sd1 14:19 Apixaban 5 mg PO once ordered. sd1 Administered Medications: 08:08 CANCELLED (Other Intervention Used): Metoprolol 5 mg Intraosseous every 5 minutes x3 jo4 08:11 Drug: Metoprolol 5 mg [metoprolol 5 mg/5 mL intravenous solution (5 mL)] Route: IVP; ml6 Site: left antecubital; 08:16 Drug: Metoprolol 5 mg [metoprolol 5 mg/5 mL intravenous solution (5 mL)] Route: IVP; ml6 Site: left antecubital; 08:21 Drug: Metoprolol 5 mg [metoprolol 5 mg/5 mL intravenous solution (5 mL)] Route: IVP; ml6 Site: left antecubital; 09:27 Drug: Flecainide 50 mg [flecainide 100 mg tablet (0.5 tabs)] Route: PO; ml6 14:33 Drug: Apixaban 5 mg [apixaban 2.5 mg tablet (2 tabs)] Route: PO; ml6 Signatures: Dispatcher [employer] EDMS Modesta Nowak MD MD sd1 Efe Chaudhary, Kwesi Reg lg Rolando Quintana RN RN dy Faisal Bullock RN RN ml6 Naila Prado mm15 Alejandra Jeffrey DO DO jo4 The chart was reviewed and I authenticate all verbal orders and agree with the evaluation and treatment provided.Corrections: (The following items were deleted from the chart) 08:08 08:08 Metoprolol 5 mg Intraosseous every 5 minutes x3 ordered. jo4 jo4 Attachments: 08:28 [facility] Payment Agreement lg MTDD
--- NOTE | 2016-05-31 15:47 | EDDOCDS ---
Physician Documentation [facility] Name: Oly Jolly Age: 66 yrs Sex: Female : 1950 Arrival Date: 05/29/2016 Time: 07:10 Bed TR7 Private MD: Disposition: 05/29 08:54 I have independently interviewed and examined the patient, and I agree with the sd1 investigation, diagnosis and treatment plan as documented by the Resident. Disposition: 05/29/16 14:21 Discharged to Home/Self Care. Impression: Persistent atrial fibrillation. - Condition is Stable. - Discharge Instructions: Atrial Fibrillation. - Prescriptions for Metoprolol Tartrate 50 mg Oral Tablet - take 1 tablet by ORAL route 2 times per day take with meal; 30 tablet. apixaban 5 mg Oral Tablet - take 1 tablet by ORAL route 2 times per day; 30 tablet. - Medication Reconciliation, Local Pharmacy Hours form. - Follow up: Mellisa Mitchell; When: Call to arrange an appointment. Follow up: Mynor Ruiz; When: Call to arrange an appointment. - Problem is an ongoing problem. - Symptoms are unchanged. Historical: - Allergies: No known drug Allergies; - Home Meds: 1. metoprolol tartrate 50 mg Oral tab 1 tab 2 times per day (Last dose: 05/29/2016 06:00) 2. amiodarone 200 mg Oral tab 1 tab once daily (Last dose: 05/28/2016 17:15) - PMHx: Type 2 DM - refused treatment, High Cholesterol - refused treatment; - PSHx: Appendectomy; Hysterectomy; Tonsillectomy; x 3; - Social history: Smoking status: Patient states former smoker of tobacco. No barriers to communication noted, The patient speaks fluent Mauritian, Speaks appropriately for age. - Family history: Not pertinent. - : The pt / caregiver states he / she is not on anticoagulants. Home medication list is obtained from the patient. - Exposure Risk Screening:: None identified. Vital Signs: 07:17 BP 174 / 97; Pulse 131; Resp 20; Temp 98.1(TE); Pulse Ox 93% on R/A; Weight 99.79 kg / dy 220 lbs (R); Height 6 ft. (182.88 cm) (R); 08:00 BP 152 / 89 (auto/); ml6 08:00 Pulse 108 MON; Resp 16; Pulse Ox 96% on R/A; ml6 08:15 BP 162 / 78 (auto/); ml6 08:15 Pulse 105 MON; Resp 16; Pulse Ox 95% on R/A; Pain 0/10; ml6 08:30 BP 150 / 80 (auto/); ml6 08:30 Pulse 113 MON; Resp 16; Pulse Ox 94% on R/A; Pain 0/10; ml6 08:35 BP 140 / 92 (auto/); ml6 08:35 Pulse 107 MON; Resp 16; Pulse Ox 95% on R/A; ml6 08:40 BP 144 / 77 (auto/); ml6 08:40 Pulse 106 MON; Resp 16; Pulse Ox 95% on R/A; ml6 08:45 BP 148 / 82 (auto/); ml6 08:45 Pulse 106 MON; Resp 16; Pulse Ox 94% on R/A; ml6 08:50 BP 153 / 93 (auto/); ml6 08:50 Pulse 109 MON; Resp 16; Pulse Ox 95% on R/A; ml6 08:55 BP 130 / 83 (auto/); ml6 08:55 Pulse 101 MON; Resp 16; Pulse Ox 93% on R/A; ml6 09:00 BP 133 / 89 (auto/); ml6 09:00 Pulse 104 MON; Resp 16; Pulse Ox 92% on R/A; Pain 0/10; ml6 09:05 BP 145 / 80 (auto/); ml6 09:05 Pulse 104 MON; Resp 16; Pulse Ox 93% on R/A; ml6 09:10 BP 132 / 74 (auto/); ml6 09:10 Pulse 102 MON; Resp 16; Pulse Ox 94% on R/A; ml6 09:15 BP 140 / 73 (auto/); ml6 09:15 Pulse 112 MON; Resp 16; Pulse Ox 93% on R/A; ml6 09:20 BP 128 / 75 (auto/); ml6 09:20 Pulse 108 MON; Resp 16; Pulse Ox 94% on R/A; ml6 09:25 BP 131 / 81 (auto/); ml6 09:25 Pulse 101 MON; Resp 16; Temp 98.3(O); Pulse Ox 93% on R/A; Pain 0/10; ml6 09:30 BP 146 / 80 (auto/); ml6 09:30 Pulse 124 MON; Resp 16; Pulse Ox 98% on R/A; Pain 0/10; ml6 09:35 BP 153 / 75 (auto/); ml6 09:35 Pulse 112 MON; Resp 18; Pulse Ox 94% on R/A; ml6 09:45 BP 156 / 91 (auto/); ml6 09:45 Pulse 111 MON; Resp 18; Pulse Ox 93% on R/A; ml6 10:00 BP 167 / 72 (auto/); ml6 10:00 Pulse 116 MON; Resp 16; Pulse Ox 94% on R/A; ml6 10:15 BP 134 / 68 (auto/); ml6 10:15 Pulse 117 MON; Resp 18; Pulse Ox 95% on R/A; ml6 10:30 BP 144 / 67 (auto/); ml6 10:30 Pulse 117 MON; Resp 18; Pulse Ox 94% on R/A; ml6 10:45 BP 119 / 63 (auto/); ml6 10:45 Pulse 115 MON; Resp 18; Pulse Ox 94% on R/A; ml6 11:00 BP 125 / 63 (auto/); ml6 11:00 Pulse 114 MON; Resp 18; Pulse Ox 93% on R/A; ml6 11:15 BP 131 / 74 (auto/); ml6 11:15 Pulse 111 MON; Resp 16; Pulse Ox 95% on R/A; ml6 11:30 BP 126 / 92 (auto/); ml6 11:30 Pulse 114 MON; Resp 18; Pulse Ox 97% on R/A; ml6 11:45 BP 135 / 82 (auto/); ml6 11:45 Pulse 110 MON; Resp 18; Pulse Ox 97% on R/A; ml6 12:00 BP 131 / 101 (auto/); ml6 12:00 Pulse 114 MON; Resp 18; Pulse Ox 98% on R/A; ml6 12:30 BP 138 / 67 (auto/); ml6 12:30 Pulse 114 MON; Resp 15; Pulse Ox 97% on R/A; ml6 12:45 BP 132 / 61 (auto/); ml6 12:45 Pulse 116 MON; Resp 16; Pulse Ox 96% on R/A; Pain 0/10; ml6 13:15 BP 124 / 71 (auto/); ml6 13:15 Pulse 120 MON; Resp 16; Pulse Ox 93% on R/A; ml6 14:42 BP 134 / 85; Pulse 102; Resp 16; Temp 98.7(O); Pulse Ox 98% on R/A; Pain 0/10; ml6 07:17 Body Mass Index 29.84 (99.79 kg, 182.88 cm) dy MDM: 07:30 ECG WITH READING ER PHYS+CARDIAG ordered. EDMS 07:56 Sack Sorter ordered. jo4 08:00 Financial registration complete. mm15 08:06 BMP Ordered. EDMS 08:06 Troponin Ordered. EDMS 08:08 Metoprolol 5 mg IVP every 5 minutes; Hold for SBP < 100 or HR < 60. x3 ordered. jo4 08:28 [facility] Payment Agreement was scanned into [employer]. and attached to record. lg 08:32 ED course: Patient seen and examined by me - no prior history of afib - episode of sd1 palpitations pm of 05/27 resolved then recurrence 05/28 presented to the ED - received at 12noon metoprolol 50 mg and metoprolol 5mg IV x 3 as well as amiodarone load of 300mg total patient before bed last evening took 50mg po of metoprolol and 200mg of amiodarone then metoprolol 50mg at 6am this am - patient presented with persistent afib rate low 100s - IV lopressor recheck med profile and per patient request proceed with cardioversion if no to NSR. 08:38 Flecainide 50 mg PO once ordered. jo4 08:54 Flecainide 50 mg PO once ordered. ml6 09:34 EKG-ADULT Reviewed. jo4 10:47 BMP Reviewed. sd1 10:47 Troponin Reviewed. sd1 14:19 Apixaban 5 mg PO once ordered. sd1 05/30 08:48 T-Sheet-- Draft Copy was scanned into [employer]. and attached to record. seh 11:42 ECG/EKG was scanned into [employer]. and attached to record. gb 12:27 ED course: Discussed patient's onset of A-fib with Dr. Mccrary. After an initial discussion jo4 with Dr. Mccrary, he recommended that the patient be started on a trial of Flecainide. He also recommended starting a trial of anticoagulation. The patient's A-fib persisted even after assessing patient after 4 hours of receiving Flecainide. Patient was not started on anticoagulation at that time. The recommendations put forth by Dr. Mccrary after a subsequent discussion with him was to discharge the patient on Metoprolol 50mg twice a day, Flecainide 50mg twice a day, and Eliquis 5mg. He also wanted the patient to follow-up in 10 days. He did not recommend cardioversion at this time. Dr. Mccrary also discussed plan with patient telephonically. After discussing plan with patient, she informed me that she would not take Flecainide. A discussion was also had regarding anticoagulation with the patient who did decide to start Eliquis. A dose of Eliquis was provided to the patient while in the ED. At time of discharge she was given a prescription for Metoprolol and Eliquis. It was recommended that she follow-up with Dr. Ruiz and Dr. Mitchell.. Administered Medications: 05/29 08:08 CANCELLED (Other Intervention Used): Metoprolol 5 mg Intraosseous every 5 minutes x3 jo4 08:11 Drug: Metoprolol 5 mg [metoprolol 5 mg/5 mL intravenous solution (5 mL)] Route: IVP; ml6 Site: left antecubital; 08:16 Drug: Metoprolol 5 mg [metoprolol 5 mg/5 mL intravenous solution (5 mL)] Route: IVP; ml6 Site: left antecubital; 08:21 Drug: Metoprolol 5 mg [metoprolol 5 mg/5 mL intravenous solution (5 mL)] Route: IVP; ml6 Site: left antecubital; 09:27 Drug: Flecainide 50 mg [flecainide 100 mg tablet (0.5 tabs)] Route: PO; ml6 14:33 Drug: Apixaban 5 mg [apixaban 2.5 mg tablet (2 tabs)] Route: PO; ml6 Signatures: Dispatcher [employer] EDCA Modesta Nowak MD MD sd1 Mariah Lacy, Reg Reg gb Efe Chaudhary, Reg Reg lg Rolando Quintana RN RN dy Faisal Bullock RN RN ml6 Naila Prado mm15 Alejandra Jeffrey DO DO jo4 [facility] The chart was reviewed and I authenticate all verbal orders and agree with the evaluation and treatment provided.Corrections: (The following items were deleted from the chart) 08:08 08:08 Metoprolol 5 mg Intraosseous every 5 minutes x3 ordered. jo4 jo4 Attachments: 08:28 [facility] Payment Agreement lg 05/30 08:48 T-Sheet-- Draft Copy [facility] 11:42 ECG/EKG gb Chart Complete MTDD
--- NOTE | 2016-05-31 15:47 | EDDOCDS ---
Physician Documentation [facility] Name: Oly Jolly Age: 66 yrs Sex: Female : 1950 Arrival Date: 05/29/2016 Time: 07:10 Bed TR7 Private MD: Disposition: 05/29 08:54 I have independently interviewed and examined the patient, and I agree with the sd1 investigation, diagnosis and treatment plan as documented by the Resident. Disposition: 05/29/16 14:21 Discharged to Home/Self Care. Impression: Persistent atrial fibrillation. - Condition is Stable. - Discharge Instructions: Atrial Fibrillation. - Prescriptions for Metoprolol Tartrate 50 mg Oral Tablet - take 1 tablet by ORAL route 2 times per day take with meal; 30 tablet. apixaban 5 mg Oral Tablet - take 1 tablet by ORAL route 2 times per day; 30 tablet. - Medication Reconciliation, Local Pharmacy Hours form. - Follow up: Mellisa Mitchell; When: Call to arrange an appointment. Follow up: Mynor Ruiz; When: Call to arrange an appointment. - Problem is an ongoing problem. - Symptoms are unchanged. Historical: - Allergies: No known drug Allergies; - Home Meds: 1. metoprolol tartrate 50 mg Oral tab 1 tab 2 times per day (Last dose: 05/29/2016 06:00) 2. amiodarone 200 mg Oral tab 1 tab once daily (Last dose: 05/28/2016 17:15) - PMHx: Type 2 DM - refused treatment, High Cholesterol - refused treatment; - PSHx: Appendectomy; Hysterectomy; Tonsillectomy; x 3; - Social history: Smoking status: Patient states former smoker of tobacco. No barriers to communication noted, The patient speaks fluent Wallisian, Speaks appropriately for age. - Family history: Not pertinent. - : The pt / caregiver states he / she is not on anticoagulants. Home medication list is obtained from the patient. - Exposure Risk Screening:: None identified. Vital Signs: 07:17 BP 174 / 97; Pulse 131; Resp 20; Temp 98.1(TE); Pulse Ox 93% on R/A; Weight 99.79 kg / dy 220 lbs (R); Height 6 ft. (182.88 cm) (R); 08:00 BP 152 / 89 (auto/); ml6 08:00 Pulse 108 MON; Resp 16; Pulse Ox 96% on R/A; ml6 08:15 BP 162 / 78 (auto/); ml6 08:15 Pulse 105 MON; Resp 16; Pulse Ox 95% on R/A; Pain 0/10; ml6 08:30 BP 150 / 80 (auto/); ml6 08:30 Pulse 113 MON; Resp 16; Pulse Ox 94% on R/A; Pain 0/10; ml6 08:35 BP 140 / 92 (auto/); ml6 08:35 Pulse 107 MON; Resp 16; Pulse Ox 95% on R/A; ml6 08:40 BP 144 / 77 (auto/); ml6 08:40 Pulse 106 MON; Resp 16; Pulse Ox 95% on R/A; ml6 08:45 BP 148 / 82 (auto/); ml6 08:45 Pulse 106 MON; Resp 16; Pulse Ox 94% on R/A; ml6 08:50 BP 153 / 93 (auto/); ml6 08:50 Pulse 109 MON; Resp 16; Pulse Ox 95% on R/A; ml6 08:55 BP 130 / 83 (auto/); ml6 08:55 Pulse 101 MON; Resp 16; Pulse Ox 93% on R/A; ml6 09:00 BP 133 / 89 (auto/); ml6 09:00 Pulse 104 MON; Resp 16; Pulse Ox 92% on R/A; Pain 0/10; ml6 09:05 BP 145 / 80 (auto/); ml6 09:05 Pulse 104 MON; Resp 16; Pulse Ox 93% on R/A; ml6 09:10 BP 132 / 74 (auto/); ml6 09:10 Pulse 102 MON; Resp 16; Pulse Ox 94% on R/A; ml6 09:15 BP 140 / 73 (auto/); ml6 09:15 Pulse 112 MON; Resp 16; Pulse Ox 93% on R/A; ml6 09:20 BP 128 / 75 (auto/); ml6 09:20 Pulse 108 MON; Resp 16; Pulse Ox 94% on R/A; ml6 09:25 BP 131 / 81 (auto/); ml6 09:25 Pulse 101 MON; Resp 16; Temp 98.3(O); Pulse Ox 93% on R/A; Pain 0/10; ml6 09:30 BP 146 / 80 (auto/); ml6 09:30 Pulse 124 MON; Resp 16; Pulse Ox 98% on R/A; Pain 0/10; ml6 09:35 BP 153 / 75 (auto/); ml6 09:35 Pulse 112 MON; Resp 18; Pulse Ox 94% on R/A; ml6 09:45 BP 156 / 91 (auto/); ml6 09:45 Pulse 111 MON; Resp 18; Pulse Ox 93% on R/A; ml6 10:00 BP 167 / 72 (auto/); ml6 10:00 Pulse 116 MON; Resp 16; Pulse Ox 94% on R/A; ml6 10:15 BP 134 / 68 (auto/); ml6 10:15 Pulse 117 MON; Resp 18; Pulse Ox 95% on R/A; ml6 10:30 BP 144 / 67 (auto/); ml6 10:30 Pulse 117 MON; Resp 18; Pulse Ox 94% on R/A; ml6 10:45 BP 119 / 63 (auto/); ml6 10:45 Pulse 115 MON; Resp 18; Pulse Ox 94% on R/A; ml6 11:00 BP 125 / 63 (auto/); ml6 11:00 Pulse 114 MON; Resp 18; Pulse Ox 93% on R/A; ml6 11:15 BP 131 / 74 (auto/); ml6 11:15 Pulse 111 MON; Resp 16; Pulse Ox 95% on R/A; ml6 11:30 BP 126 / 92 (auto/); ml6 11:30 Pulse 114 MON; Resp 18; Pulse Ox 97% on R/A; ml6 11:45 BP 135 / 82 (auto/); ml6 11:45 Pulse 110 MON; Resp 18; Pulse Ox 97% on R/A; ml6 12:00 BP 131 / 101 (auto/); ml6 12:00 Pulse 114 MON; Resp 18; Pulse Ox 98% on R/A; ml6 12:30 BP 138 / 67 (auto/); ml6 12:30 Pulse 114 MON; Resp 15; Pulse Ox 97% on R/A; ml6 12:45 BP 132 / 61 (auto/); ml6 12:45 Pulse 116 MON; Resp 16; Pulse Ox 96% on R/A; Pain 0/10; ml6 13:15 BP 124 / 71 (auto/); ml6 13:15 Pulse 120 MON; Resp 16; Pulse Ox 93% on R/A; ml6 14:42 BP 134 / 85; Pulse 102; Resp 16; Temp 98.7(O); Pulse Ox 98% on R/A; Pain 0/10; ml6 07:17 Body Mass Index 29.84 (99.79 kg, 182.88 cm) dy MDM: 07:30 ECG WITH READING ER PHYS+CARDIAG ordered. EDMS 07:56 Generation Engineer ordered. jo4 08:00 Financial registration complete. mm15 08:06 BMP Ordered. EDMS 08:06 Troponin Ordered. EDMS 08:08 Metoprolol 5 mg IVP every 5 minutes; Hold for SBP < 100 or HR < 60. x3 ordered. jo4 08:28 [facility] Payment Agreement was scanned into [employer] and attached to record. lg 08:32 ED course: Patient seen and examined by me - no prior history of afib - episode of sd1 palpitations pm of 05/27 resolved then recurrence 05/28 presented to the ED - received at 12noon metoprolol 50 mg and metoprolol 5mg IV x 3 as well as amiodarone load of 300mg total patient before bed last evening took 50mg po of metoprolol and 200mg of amiodarone then metoprolol 50mg at 6am this am - patient presented with persistent afib rate low 100s - IV lopressor recheck med profile and per patient request proceed with cardioversion if no to NSR. 08:38 Flecainide 50 mg PO once ordered. jo4 08:54 Flecainide 50 mg PO once ordered. ml6 09:34 EKG-ADULT Reviewed. jo4 10:47 BMP Reviewed. sd1 10:47 Troponin Reviewed. sd1 14:19 Apixaban 5 mg PO once ordered. sd1 05/30 08:48 T-Sheet-- Draft Copy was scanned into [employer] and attached to record. seh 11:42 ECG/EKG was scanned into [employer] and attached to record. gb 12:27 ED course: Discussed patient's onset of A-fib with Dr. Mccrary. After an initial discussion jo4 with Dr. Mccrary, he recommended that the patient be started on a trial of Flecainide. He also recommended starting a trial of anticoagulation. The patient's A-fib persisted even after assessing patient after 4 hours of receiving Flecainide. Patient was not started on anticoagulation at that time. The recommendations put forth by Dr. Mccrary after a subsequent discussion with him was to discharge the patient on Metoprolol 50mg twice a day, Flecainide 50mg twice a day, and Eliquis 5mg. He also wanted the patient to follow-up in 10 days. He did not recommend cardioversion at this time. Dr. Mccrary also discussed plan with patient telephonically. After discussing plan with patient, she informed me that she would not take Flecainide. A discussion was also had regarding anticoagulation with the patient who did decide to start Eliquis. A dose of Eliquis was provided to the patient while in the ED. At time of discharge she was given a prescription for Metoprolol and Eliquis. It was recommended that she follow-up with Dr. Ruiz and Dr. Mitchell.. Administered Medications: 05/29 08:08 CANCELLED (Other Intervention Used): Metoprolol 5 mg Intraosseous every 5 minutes x3 jo4 08:11 Drug: Metoprolol 5 mg [metoprolol 5 mg/5 mL intravenous solution (5 mL)] Route: IVP; ml6 Site: left antecubital; 08:16 Drug: Metoprolol 5 mg [metoprolol 5 mg/5 mL intravenous solution (5 mL)] Route: IVP; ml6 Site: left antecubital; 08:21 Drug: Metoprolol 5 mg [metoprolol 5 mg/5 mL intravenous solution (5 mL)] Route: IVP; ml6 Site: left antecubital; 09:27 Drug: Flecainide 50 mg [flecainide 100 mg tablet (0.5 tabs)] Route: PO; ml6 14:33 Drug: Apixaban 5 mg [apixaban 2.5 mg tablet (2 tabs)] Route: PO; ml6 Signatures: Dispatcher [employer] EDTX Modesta Nowak MD MD sd1 Mariah Lacy, Reg Reg gb Efe Chaudhary, Reg Reg lg Rolando Quintana RN RN dy Faisal Bullock RN RN ml6 Naila Prado mm15 Alejandra Jeffrey DO DO jo4 [facility] The chart was reviewed and I authenticate all verbal orders and agree with the evaluation and treatment provided.Corrections: (The following items were deleted from the chart) 08:08 08:08 Metoprolol 5 mg Intraosseous every 5 minutes x3 ordered. jo4 jo4 Attachments: 08:28 [facility] Payment Agreement lg 05/30 08:48 T-Sheet-- Draft Copy [facility] 11:42 ECG/EKG gb Chart Complete MTDD
--- NOTE | 2016-05-31 15:48 | EDDOCDS ---
Nurse's Notes [facility] Name: Oly Cameron Age: 66 yrs Sex: Female : 1950 Arrival Date: 05/29/2016 Time: 07:10 Bed TR7 Private MD: Diagnosis: Persistent atrial fibrillation Presentation: 05/29 07:15 Presenting complaint: Patient states: having some palpitations. seen here yesterday for dy elevated blood sugars and new onset a-fib. no change today. here for recheck. Adult Sepsis Screening: The patient does not have new or worsening altered mentation. Patient's respiratory rate is less than 22. Systolic blood pressure is greater than 100. Patient has a qSOFA score of 0- Negative Sepsis Screen. Suicide/Homicide risk assessment- the patient denies having any suicidal and/or homicidal ideations and does not present with any other emotional, behavioral or mental health complaints. Status: Patient is not a clinical services assistant or dependent. Transition of care: patient was not received from another setting of care. 07:15 Acuity: RA Level 3 dy 07:15 Method Of Arrival: Walkin/Carried/Asstd dy Triage Assessment: 07:17 General: Appears in no apparent distress. Pain: Denies pain. dy Historical: - Allergies: No known drug Allergies; - Home Meds: 1. metoprolol tartrate 50 mg Oral tab 1 tab 2 times per day (Last dose: 05/29/2016 06:00) 2. amiodarone 200 mg Oral tab 1 tab once daily (Last dose: 05/28/2016 17:15) - PMHx: Type 2 DM - refused treatment, High Cholesterol - refused treatment; - PSHx: Appendectomy; Hysterectomy; Tonsillectomy; x 3; - Social history: Smoking status: Patient states former smoker of tobacco. No barriers to communication noted, The patient speaks fluent [place]an, Speaks appropriately for age. - Family history: Not pertinent. - : The pt / caregiver states he / she is not on anticoagulants. Home medication list is obtained from the patient. - Exposure Risk Screening:: None identified. Screenin:41 Screening information is obtained from the patient. Fall risk: No risks identified. ml6 Assistance ADL's: requires no assistance with activities of daily living. Abuse/DV Screen: The patient / caregiver reports he/she is: not in a situation that causes fear, pain or injury. Nutritional screening: No deficits noted. Advance Directives: Currently, there is no health care proxy. home support is adequate. Assessment: 07:20 General: Appears in no apparent distress, comfortable, Behavior is appropriate for age, ml6 cooperative. Pain: Denies pain. Neurological: No deficits noted. Level of Consciousness is awake, alert, Oriented to person, place, time, Costume Director are equal bilaterally. Cardiovascular: No deficits noted. Capillary refill < 3 seconds is brisk in bilateral fingers toes Heart tones S1 S2 present. Respiratory: No deficits noted. Airway is patent Respiratory effort is even, unlabored, Respiratory pattern is regular, symmetrical, Breath sounds are clear bilaterally. GI: Abdomen is obese, Bowel sounds present X 4 quads. 08:20 Reassessment: Patient appears in no apparent distress at this time. Patient denies pain ml6 at this time. Patient states feeling better. Patient states symptoms have improved. patient has no c/o pain ordiscomfort. 09:20 Reassessment: Patient appears in no apparent distress at this time. Patient denies pain ml6 at this time. Patient states feeling better. Patient states symptoms have improved. 10:20 General: Appears in no apparent distress, comfortable, Behavior is appropriate for age, ml6 cooperative. Cardiovascular: Capillary refill < 3 seconds is brisk in bilateral fingers toes Heart tones S1 S2 present Edema is absent. Pulses are all present. Rhythm is atrial fibrillation Chest pain is denied. 11:20 Reassessment: Patient appears in no apparent distress at this time. Patient denies pain ml6 at this time. Patient states feeling better. Patient states symptoms have improved. patient sleeping. 12:22 Reassessment: Patient appears in no apparent distress at this time. Patient denies pain ml6 at this time. Patient states feeling better. Patient states symptoms have improved. patient sleeping resp unlabored. 13:21 General: Appears in no apparent distress, comfortable, Behavior is appropriate for age, ml6 cooperative. Pain: Denies pain. Neurological: No deficits noted. Level of Consciousness is awake, alert, Oriented to person, place, time, Costume Director are equal bilaterally. Cardiovascular: No deficits noted. Capillary refill < 3 seconds is brisk in bilateral fingers toes Heart tones S1 S2 present Edema is absent. Pulses are all present. Rhythm is atrial fibrillation Chest pain is denied. Respiratory: No deficits noted. GI: No deficits noted. 14:42 General: Appears in no apparent distress, comfortable. Cardiovascular: Capillary refill ml6 < 3 seconds is brisk in bilateral fingers toes Heart tones S1 S2 present Edema is absent. Pulses are all present. Rhythm is atrial fibrillation Chest pain is denied. Respiratory: No deficits noted. Vital Signs: 07:17 BP 174 / 97; Pulse 131; Resp 20; Temp 98.1(TE); Pulse Ox 93% on R/A; Weight 99.79 kg dy (R); Height 6 ft. (182.88 cm) (R); 08:00 BP 152 / 89 (auto/); ml6 08:00 Pulse 108 MON; Resp 16; Pulse Ox 96% on R/A; ml6 08:15 BP 162 / 78 (auto/); ml6 08:15 Pulse 105 MON; Resp 16; Pulse Ox 95% on R/A; Pain 0/10; ml6 08:30 BP 150 / 80 (auto/); ml6 08:30 Pulse 113 MON; Resp 16; Pulse Ox 94% on R/A; Pain 0/10; ml6 08:35 BP 140 / 92 (auto/); ml6 08:35 Pulse 107 MON; Resp 16; Pulse Ox 95% on R/A; ml6 08:40 BP 144 / 77 (auto/); ml6 08:40 Pulse 106 MON; Resp 16; Pulse Ox 95% on R/A; ml6 08:45 BP 148 / 82 (auto/); ml6 08:45 Pulse 106 MON; Resp 16; Pulse Ox 94% on R/A; ml6 08:50 BP 153 / 93 (auto/); ml6 08:50 Pulse 109 MON; Resp 16; Pulse Ox 95% on R/A; ml6 08:55 BP 130 / 83 (auto/); ml6 08:55 Pulse 101 MON; Resp 16; Pulse Ox 93% on R/A; ml6 09:00 BP 133 / 89 (auto/); ml6 09:00 Pulse 104 MON; Resp 16; Pulse Ox 92% on R/A; Pain 0/10; ml6 09:05 BP 145 / 80 (auto/); ml6 09:05 Pulse 104 MON; Resp 16; Pulse Ox 93% on R/A; ml6 09:10 BP 132 / 74 (auto/); ml6 09:10 Pulse 102 MON; Resp 16; Pulse Ox 94% on R/A; ml6 09:15 BP 140 / 73 (auto/); ml6 09:15 Pulse 112 MON; Resp 16; Pulse Ox 93% on R/A; ml6 09:20 BP 128 / 75 (auto/); ml6 09:20 Pulse 108 MON; Resp 16; Pulse Ox 94% on R/A; ml6 09:25 BP 131 / 81 (auto/); ml6 09:25 Pulse 101 MON; Resp 16; Temp 98.3(O); Pulse Ox 93% on R/A; Pain 0/10; ml6 09:30 BP 146 / 80 (auto/); ml6 09:30 Pulse 124 MON; Resp 16; Pulse Ox 98% on R/A; Pain 0/10; ml6 09:35 BP 153 / 75 (auto/); ml6 09:35 Pulse 112 MON; Resp 18; Pulse Ox 94% on R/A; ml6 09:45 BP 156 / 91 (auto/); ml6 09:45 Pulse 111 MON; Resp 18; Pulse Ox 93% on R/A; ml6 10:00 BP 167 / 72 (auto/); ml6 10:00 Pulse 116 MON; Resp 16; Pulse Ox 94% on R/A; ml6 10:15 BP 134 / 68 (auto/); ml6 10:15 Pulse 117 MON; Resp 18; Pulse Ox 95% on R/A; ml6 10:30 BP 144 / 67 (auto/); ml6 10:30 Pulse 117 MON; Resp 18; Pulse Ox 94% on R/A; ml6 10:45 BP 119 / 63 (auto/); ml6 10:45 Pulse 115 MON; Resp 18; Pulse Ox 94% on R/A; ml6 11:00 BP 125 / 63 (auto/); ml6 11:00 Pulse 114 MON; Resp 18; Pulse Ox 93% on R/A; ml6 11:15 BP 131 / 74 (auto/); ml6 11:15 Pulse 111 MON; Resp 16; Pulse Ox 95% on R/A; ml6 11:30 BP 126 / 92 (auto/); ml6 11:30 Pulse 114 MON; Resp 18; Pulse Ox 97% on R/A; ml6 11:45 BP 135 / 82 (auto/); ml6 11:45 Pulse 110 MON; Resp 18; Pulse Ox 97% on R/A; ml6 12:00 BP 131 / 101 (auto/); ml6 12:00 Pulse 114 MON; Resp 18; Pulse Ox 98% on R/A; ml6 12:30 BP 138 / 67 (auto/); ml6 12:30 Pulse 114 MON; Resp 15; Pulse Ox 97% on R/A; ml6 12:45 BP 132 / 61 (auto/); ml6 12:45 Pulse 116 MON; Resp 16; Pulse Ox 96% on R/A; Pain 0/10; ml6 13:15 BP 124 / 71 (auto/); ml6 13:15 Pulse 120 MON; Resp 16; Pulse Ox 93% on R/A; ml6 14:42 BP 134 / 85; Pulse 102; Resp 16; Temp 98.7(O); Pulse Ox 98% on R/A; Pain 0/10; ml6 07:17 Body Mass Index 29.84 (99.79 kg, 182.88 cm) dy Vitals: 07:17 Log In Time: May 29, 2016 at 07:16. dy ED Course: 07:13 Patient visited by Lb Joseph Reg. pm4 07:13 Patient moved to Waiting pm4 07:17 Triage Initiated dy 07:22 Vandana Gauthier,RN is Primary Nurse. dy 07:22 Patient moved to 3 dy 07:23 Alejandra Jeffrey DO is PHCP. jo4 07:23 Modesta Nowak MD is Attending Physician. jo4 07:31 Patient visited by Alejandra Jeffrey DO. jo4 07:41 Patient visited by Joel Fuller PCA. jlf 07:41 EKG done. (by ED staff). Reviewed by Modesta Nowak MD. jlf 07:42 Patient visited by Joel Fuller PCA. jlf 07:42 Pt greeted and oriented to ED. Patient advised of names of staff involved in care, jlf location of call wal[place], wait times and NPO status. Accompanied by Family Member, Patient has correct armband on for positive identification. Placed in gown. Bed in low position. Side rails up X2. continuous improvement specialist on. Pulse ox on. NIBP on. 07:55 Inserted peripheral IV: 18gauge IV in left antecubital area Patient tolerated the ml6 procedure well. 08:20 Patient visited by Joel Fuller PCA. jlf 08:28 [facility] Payment Agreement was scanned into Med[employer] and attached to record. lg 08:52 Primary Nurse role handed off by Vandana Gauthier RN jc4 08:54 Patient visited by Faisal Bullock, BRITTANY. ml6 08:54 Faisal Bullock, BRITTANY is Primary Nurse. jc4 09:06 EKG-ADULT Returned. EDMS 09:27 Patient visited by Faisal Bullock RN. ml6 10:02 Patient visited by Faisal Bullock RN. ml6 10:35 Patient visited by Faisal Bullock RN. ml6 10:54 Patient visited by Faisal Bullock, BRITTANY. ml6 11:23 Patient moved to OBSERVATION sd1 13:42 Patient visited by Faisal Bullock, BRITTANY. ml6 14:14 Patient visited by Nora Braxton, BRITTANY. srm 14:14 Discontinued lock intact, bleeding controlled, pressure dressing applied, No srm redness/swelling at site. 14:21 Mellisa Mitchell is Referral Physician. jo4 14:21 Mynor Ruiz MD is Referral Physician. jo4 14:34 Patient moved to TR7 ml6 14:43 No procedures done that require assistance. ml6 14:45 The patient / caregiver is instructed regarding the plan of care and ED course. ml6 05/30 08:48 T-Sheet-- Draft Copy was scanned into MedLink and attached to record. [facility] 11:42 ECG/EKG was scanned into MedLink and attached to record. gb Administered Medications: 05/29 08:08 CANCELLED (Other Intervention Used): Metoprolol 5 mg Intraosseous every 5 minutes x3 jo4 08:11 Drug: Metoprolol 5 mg [metoprolol 5 mg/5 mL intravenous solution (5 mL)] Route: IVP; ml6 Site: left antecubital; 08:16 Drug: Metoprolol 5 mg [metoprolol 5 mg/5 mL intravenous solution (5 mL)] Route: IVP; ml6 Site: left antecubital; 08:21 Drug: Metoprolol 5 mg [metoprolol 5 mg/5 mL intravenous solution (5 mL)] Route: IVP; ml6 Site: left antecubital; 09:27 Drug: Flecainide 50 mg [flecainide 100 mg tablet (0.5 tabs)] Route: PO; ml6 14:33 Drug: Apixaban 5 mg [apixaban 2.5 mg tablet (2 tabs)] Route: PO; ml6 Order Results: Lab Order: BMP; SPEC'M 05/29/16 09:39 Test: GLUCOSE, FASTING; Value: 353; Range: 80-110; Abnormal: Above high normal; Units: MG/DL; Status: F Test: BLOOD UREA NITROGEN; Value: 21; Range: 7-18; Abnormal: Above high normal; Units: MG/DL; Status: F Test: CREATININE FOR GFR; Value: 1.01; Range: 0.55-1.02; Units: MG/DL; Status: F Test: GLOMERULAR FILTRATION RATE; Value: 58.6; Range: >45; Status: F Test: SODIUM LEVEL; Value: 140; Range: 136-145; Units: MEQ/L; Status: F Test: POTASSIUM SERUM; Value: 4.3; Range: 3.5-5.1; Units: MEQ/L; Status: F Test: CHLORIDE LEVEL; Value: 102; Range: 98-107; Units: MEQ/L; Status: F Test: CARBON DIOXIDE LEVEL; Value: 31; Range: 21-32; Units: MEQ/L; Status: F Test: ANION GAP; Value: 7; Range: 8-16; Abnormal: Below low normal; Units: MEQ/L; Status: F Test: CALCIUM LEVEL; Value: 8.5; Range: 8.8-10.2; Abnormal: Below low normal; Units: MG/DL; Status: F Test Note: ; Units are mL/min/1.73 m2 Chronic Kidney Disease Staging per NKF: Stage I & II GFR >=60 Normal to Mildly Decreased Stage III GFR 30-59 Moderately Decreased Stage IV GFR 15-29 Severely Decreased Stage V GFR <15 Very Little GFR Left ESRD GFR <15 on MOLECULAR BIOLOGIST Lab Order: Troponin; SPEC'05/29/16 09:39 Test: TROPONIN I; Value: 0.11; Range: < 0.10; Abnormal: High; Units: NG/ML; Status: F Test Note: ; Troponin I Reference Interval for [employer] [place] LOCI: 99th Percentile= 0.00-0.045 ng/ml Risk Stratification: <= 0.10 ng/ml Decreased Risk for Adverse Clinical Events. 0.10-1.50 ng/ml Increased Risk for Adverse Clinical Events. Evaluation of additional criterion and/or repeat testing in 2-6 hours is suggested to rule out myocardial damage. >= 1.50 ng/ml Indicative of Myocardial Injury. Radiology Order: EKG-ADULT Test: EKG-ADULT REASON FOR EXAMINATION: A-fib; Stationary ECG Study; [facility] - ED; ; Test Date: 2016-05-29; Pat Name: OLY CAMERON Department:; Room: -; Gender: F Caponizer: johnny; : 1950 Requested By: ALEJANDRA GUERRA; Order Number: [id number] Reading MD: Lyle Bustamante; Measurements; Intervals [place]; Rate: 113 P:; AR: 0 QRS: 28; QRSD: 86 T: 1; QT: 305; QTc: 419; Interpretive Statements; ATRIAL FIBRILLATION WITH RAPID VENTRICULAR RESPONSE; ; Electronically Signed On 05-29-2016 8:50:26 EST by Lyle Bustamante; Outcome: 14:21 Discharge ordered by Provider. jo4 14:43 Discharge Assessment: patient administered narcotics - no. The following High Risk ml6 Discharge criteria are identified: None. Discharged to home ambulatory. Condition: improved. Discharge instructions given to patient, Instructed on discharge instructions, follow up and referral plans. medication usage, Demonstrated understanding of instructions, medications, Pt was receptive of discharge instructions/ teaching. Prescriptions given X 1. No special radiology studies were completed. Property sent home with patient. :Personal belongings accompany Pt. 14:46 Patient left the ED. ml6 Signatures: Dispatcher [employer] EDModesta Adkins MD MD sd1 Nora Braxton, RN RN [facility] Mariah Lacy, Reg Reg gb Efe Chaudhary, Reg Reg lg Rolando Quintana RN RN dy Lowe, Matthew, RN RN ml6 Kizzy Solorio, RN RN jc4 Joel Fuller, MORTGAGE LOAN PROCESSING CLERK MORTGAGE LOAN PROCESSING CLERK jlf Alejandra Jeffrey, DO Carrasco, Lb Ibrahim, Reg Reg pm4 Corrections: (The following items were deleted from the chart) 08:54 08:50 Flecainide 50 mg PO ml6 ml6 Chart Complete MTDD
== END 2016-05-29 14:46 | disposition home or self-care (01) ==
LOC: M ED 07:10
DX: I48.91 Unspecified atrial fibrillation (principal); E11.9 Type 2 diabetes mellitus without complications; E78.00 Pure hypercholesterolemia, unspecified; Z87.891 Personal history of nicotine dependence; Z79.899 Other long term (current) drug therapy

== ENCOUNTER 2016-05-31 10:47 | Inpatient (IN) | payer OTHER ==
[~2016-05-31] VITALS: Ht 182.9 cm; Wt 113.2 kg
[2016-05-31] MEDS ORDERED: DIGOXIN INJ 0.5 MG/2 ML AMP (J1160) As Ordered ONE (11:55)
[2016-05-31] MEDS ORDERED: METOPROLOL 5 MG/5 ML VIAL As Ordered ONE (11:55)
[2016-05-31 12:00] LABS: BASO % 0.5 % (0.0-1.0); EOS # 0.1 K/mm3 (0.0-0.50); EOS % 0.8 % (0.0-3.0); LARGE UNSTAINED CELL # 0.1 K/mm3 (0.0-0.4); LARGE UNSTAINED CELL % 1.3 % (0.0-4.0); LYMPH # 1.4 K/mm3 (1.5-4.5); MEAN CORPUSCULAR HEMOGLOBIN 28.5 pg (27.0-33.0); MEAN CORPUSCULAR HGB CONC 32.5 g/dl (32.0-36.5); MEAN CORPUSCULAR VOLUME 87.7 fl (80.0-96.0); MONO # 0.4 K/mm3 (0.0-0.8); MONO % 4.2 % (0.0-5.0); NEUTROPHILS # 8.1 K/mm3 (1.8-7.7); NEUTROPHILS % 79.2 % (36.0-66.0); PLATELET COUNT, AUTOMATED 342 k/mm3 (150-450); RED CELL DISTRIBUTION WIDTH 13.7 % (11.5-14.5); WHITE BLOOD COUNT 10.3 K/mm3 (4.0-10.0)
[2016-05-31] MEDS ORDERED: ELIQ5TAB PO (12:09)
[2016-05-31] MEDS ORDERED: METO50TA2 PO (12:09)
[2016-05-31] MEDS ORDERED: VITMTA PO (12:09)
[2016-05-31] MEDS ORDERED: ASPI1TAB PO (12:09)
[2016-05-31 12:10] LABS: CALCIUM LEVEL 8.5 MG/DL (8.8-10.2); CREATININE FOR GFR 1.16 MG/DL (0.55-1.02); GLOMERULAR FILTRATION RATE 49.9 (>45); POTASSIUM SERUM 4.8 MEQ/L (3.5-5.1)
[2016-05-31 12:16] LABS: VENOUS BASE EXCESS 0.3 (-2.0-2.0); VENOUS O2 SATURATION 78.6 % (60.0-80.0); VENOUS PARTIAL PRESSURE CO2 44.5 mmHg (38.0-50.0); VENOUS PARTIAL PRESSURE O2 42.5 mmHg (30.0-50.0); VENOUS STANDARD HCO3 24.3 MEQ/L; VENOUS TOTAL CO2 27.2 MEQ/L (24.0-28.0)
[2016-05-31] MEDS ORDERED: ACETAMINOPHEN TAB 650MG DOSE (2X325MG) PO PRN (12:30)
[2016-05-31] MEDS ORDERED: DIGOXIN INJ 0.5 MG/2 ML AMP (J1160) IV ONE (12:30)
[2016-05-31] MEDS ORDERED: DEXTROSE 50% 50 ML SYRINGE IV PRN (12:30)
[2016-05-31] MEDS ORDERED: GLUCAGON FOR INJ 1 MG VIAL (J1610) SC PRN (12:30)
[2016-05-31] MEDS ORDERED: ONDANSETRON 4MG/2ML VIAL (J2405) IV PRN (12:30)
[2016-05-31] MEDS ORDERED: GLUCOSE 4 GM CHEW TABLET PO PRN (12:30)
[2016-05-31] MEDS ORDERED: NS 1,000 ML IV SCH (17:00)
[2016-05-31] MEDS: HumaLOG INSULIN (NovoLOG) PER UNIT SC SCH ×2 (17:30→20:26)
[2016-05-31] MEDS: glipiZIDE 10 MG TAB PO SCH (17:30)
[2016-05-31 17:45] VITALS: BP 140/90
[2016-05-31] MEDS ORDERED: HumaLOG INSULIN (NovoLOG) PER UNIT As Ordered ONE (18:26)
[2016-05-31 20:00] VITALS: BP 170/92
[2016-05-31] MEDS ORDERED: METOPROLOL TART 50 MG TAB As Ordered ONE (20:28)
[2016-05-31] MEDS ORDERED: APIXABAN 5 MG TAB (ELIQUIS) As Ordered ONE (20:28)
[2016-05-31] MEDS ORDERED: LEVEMIR (INSULIN DETEMIR) 1 UNITS/0.01ML As Ordered ONE (20:36)
[2016-05-31] MEDS: LEVEMIR (INSULIN DETEMIR) 1 UNITS/0.01ML SC SCH (20:38)
[2016-05-31] MEDS: METOPROLOL TART 50 MG TAB PO SCH (20:38)
[2016-05-31] MEDS: APIXABAN 5 MG TAB (ELIQUIS) PO SCH (20:38)
[2016-05-31 23:15] VITALS: BP 150/79
--- NOTE | 2016-05-31 23:37 | EDDOCDS ---
Nurse's Notes [facility] [place] [facility] Name: Oly Jolly Age: 66 yrs Sex: Female : 1950 Arrival Date: 05/31/2016 Time: 10:47 Bed Admit Hold Private MD: Dennis Diagnosis: Persistent atrial fibrillation;Type 2 diabetes mellitus with hyperglycemia Presentation: 05/31 10:52 Presenting complaint: Patient states: noted elevated heart rate this morning which was pml improved but then worsened again. pt states she feels like she is not getting enough oxygen. Adult Sepsis Screening: The patient does not have new or worsening altered mentation. Patient's respiratory rate is less than 22. Systolic blood pressure is greater than 100. Patient has a qSOFA score of 0- Negative Sepsis Screen. Suicide/Homicide risk assessment- the patient denies having any suicidal and/or homicidal ideations and does not present with any other emotional, behavioral or mental health complaints. Status: Patient is not a ground services instructor or dependent. Transition of care: patient was not received from another setting of care. 10:52 Acuity: RA Level 2 pml 10:52 Method Of Arrival: Walkin/Carried/Asstd pml Triage Assessment: 10:55 General: Appears in no apparent distress, comfortable, Behavior is appropriate for age, pml cooperative. Pain: Denies pain. The patient is triaged at the bedside. See Assessment in Nurses Notes section of ED record. Neurological: Level of Consciousness is awake, alert, Oriented to person, place, time. Cardiovascular: Capillary refill < 3 seconds Rhythm is atrial fibrillation with rapid ventricular response Chest pain is denied. Respiratory: Airway is patent Respiratory effort is even, unlabored, Reports shortness of breath intermittently with episodes of rapid heart rate - denies at this time. GI: Abdomen is non- distended obese, Reports nausea, during episodes of rapid heart rate - denies at this time. Derm: Skin is pink, warm & dry. Historical: - Allergies: no known allergies; - Home Meds: 1. metoprolol tartrate 50 mg Oral tab 1 tab 2 times per day 2. Eliquis 5 mg oral tab 1 tab 2 times per day - PMHx: Type 2 DM - refused treatment, High Cholesterol - refused treatment; Atrial Fib; - PSHx: Appendectomy; Hysterectomy; Tonsillectomy; x 3; - The history from nurses notes was reviewed: and I agree with what is documented. - Social history: Smoking status: Patient states former smoker of tobacco. No barriers to communication noted, The patient speaks fluent Hong Konger, Speaks appropriately for age. - Family history: Not pertinent. - : The pt / caregiver states he / she is on anticoagulants: Eliquis Home medication list is obtained from family members. - Hospitalizations: : No recent hospitalization is reported. - Exposure Risk Screening:: None identified. - Immunization history:: All immunizations up-to-date. - Social history:: the patient is a non-smoker, the patient does not drink alcohol. Screenin:11 Screening information is obtained from the patient. Fall risk: No risks identified. bcj Assistance ADL's: requires no assistance with activities of daily living. Abuse/DV Screen: The patient / caregiver reports he/she is: not in a situation that causes fear, pain or injury. Nutritional screening: No deficits noted. Advance Directives: Currently, there is no health care proxy. home support is adequate. Assessment: 10:58 General: see triage ntoe. pml 11:11 General: Appears in no apparent distress, comfortable, Behavior is cooperative. Pain: bcj Denies pain. Cardiovascular: Rhythm is atrial fibrillation with rapid ventricular response. Respiratory: Airway is patent Respiratory effort is even, unlabored, Respiratory pattern is regular. Derm: Skin is pink, warm & dry. 12:23 General: Appears in no apparent distress, comfortable, Behavior is cooperative. Pain: bcj Denies pain. Cardiovascular: Rhythm is atrial fibrillation with rapid ventricular response. Respiratory: No deficits noted. Derm: Skin is pink, warm & dry. 13:07 General: Appears in no apparent distress, comfortable, Behavior is cooperative. Pain: bcj Denies pain. Cardiovascular: Rhythm is atrial fibrillation with rapid ventricular response Chest pain is denied. Respiratory: Airway is patent Respiratory effort is even, unlabored, Respiratory pattern is regular. Derm: Skin is pink, warm & dry. 14:08 General: Appears in no apparent distress, comfortable, Behavior is cooperative. Pain: bcj Denies pain. Cardiovascular: Rhythm is atrial fibrillation with rapid ventricular response. Derm: Skin is pink, warm & dry. 15:16 General: Appears in no apparent distress, comfortable, Behavior is appropriate for age, jmb cooperative, Patient sitting on stretcher reading book. NO voiced complaints at this time. . Pain: Denies pain. Neurological: Level of Consciousness is awake, alert, obeys commands, Oriented to person, place, time, Radiologic Technology Instructor are equal bilaterally Speech is normal, Facial symmetry appears normal, Facial symmetry: tongue is midline. Cardiovascular: Capillary refill < 3 seconds Heart tones present Pulses are all present. Rhythm is atrial fibrillation Chest pain is denied. Respiratory: Airway is patent Respiratory effort is even, unlabored, Respiratory pattern is regular, symmetrical, Breath sounds are diminished bilaterally. GI: Abdomen is obese, Bowel sounds present X 4 quads. Abd is soft and non tender X 4 quads. Derm: Skin is pink, warm & dry. 15:44 General: Appears in no apparent distress, comfortable, Behavior is appropriate for age, jmb cooperative, Patient laying on stretcher, reading book. NO voiced complaints at this time. . Neurological: Level of Consciousness is awake, alert, obeys commands, Oriented to person, place, time. Respiratory: Airway is patent Respiratory effort is even, unlabored, Respiratory pattern is regular, symmetrical. 16:09 General: Appears in no apparent distress, Behavior is appropriate for age, cooperative. jmb Neurological: Level of Consciousness is awake, alert, obeys commands, Oriented to person, place, time. Respiratory: Airway is patent Respiratory effort is even, unlabored, Respiratory pattern is regular, symmetrical. 16:48 General: Appears in no apparent distress, comfortable, Behavior is appropriate for age, jmb cooperative, Patient laying on stretcher in room, reading book. Patient denies pain or discomfort at this time. . Pain: Denies pain. Neurological: Level of Consciousness is awake, alert, obeys commands, Oriented to person, place, time. Respiratory: Airway is patent Respiratory effort is even, unlabored, Respiratory pattern is regular, symmetrical. Vital Signs: 10:49 BP 144 / 100; Pulse 170; Resp 20; Pulse Ox 98% on R/A; Weight 99.79 kg (R); Height 6 elp ft. 0 in. (182.88 cm) (R); Pain 0/10; 10:56 BP 128 / 95 (auto/); bcj 10:56 Pulse 162 MON; Pulse Ox 97% ; bcj 11:00 BP 140 / 101 (auto/); bcj 11:00 Pulse 155 MON; Pulse Ox 97% ; bcj 11:05 Temp 97.7(O); rs6 11:05 BP 118 / 80 (auto/); bcj 11:05 Pulse 155 MON; Pulse Ox 97% ; bcj 11:20 BP 117 / 89 (auto/); bcj 11:20 Pulse 154 MON; Pulse Ox 97% ; bcj 11:35 BP 116 / 94 (auto/); bcj 11:35 Pulse 156 MON; Pulse Ox 96% ; bcj 11:50 BP 128 / 69 (auto/); bcj 11:50 Pulse 161 MON; Pulse Ox 95% ; bcj 12:04 BP 157 / 80 (auto/); bcj 12:04 Pulse 145 MON; Pulse Ox 92% ; bcj 12:05 BP 128 / 69; Pulse 154; bcj 12:10 BP 157 / 72 (auto/); bcj 12:10 Pulse 129 MON; Pulse Ox 95% ; bcj 12:16 BP 160 / 98 (auto/); bcj 12:16 Pulse 120 MON; Pulse Ox 94% ; bcj 12:20 BP 147 / 85; Pulse 116; bcj 12:21 BP 147 / 85 (auto/); bcj 12:21 Pulse 119 MON; Pulse Ox 96% ; bcj 12:31 BP 135 / 91 (auto/); bcj 12:31 Pulse 109 MON; Pulse Ox 97% ; bcj 12:36 BP 145 / 83 (auto/); bcj 12:36 Pulse 106 MON; Pulse Ox 95% ; bcj 12:37 BP 135 / 91; Pulse 105; bcj 12:41 BP 141 / 75 (auto/); bcj 12:41 Pulse 110 MON; Pulse Ox 95% ; bcj 12:46 BP 162 / 79 (auto/); bcj 12:46 Pulse 102 MON; Pulse Ox 96% ; bcj 12:51 BP 155 / 91 (auto/); bcj 12:51 Pulse 107 MON; Pulse Ox 96% ; bcj 12:56 BP 116 / 67 (auto/); bcj 12:56 Pulse 106 MON; Pulse Ox 95% ; bcj 13:01 BP 143 / 97 (auto/); bcj 13:01 Pulse 105 MON; Pulse Ox 96% ; bcj 13:06 BP 142 / 67 (auto/); bcj 13:06 Pulse 105 MON; Pulse Ox 95% ; bcj 13:11 BP 151 / 83 (auto/); bcj 13:11 Pulse 109 MON; Pulse Ox 94% ; bcj 13:16 BP 161 / 78 (auto/); bcj 13:16 Pulse 108 MON; Pulse Ox 93% ; bcj 13:21 BP 165 / 89 (auto/); bcj 13:21 Pulse 109 MON; Pulse Ox 94% ; bcj 13:26 BP 157 / 90 (auto/); bcj 13:26 Pulse 118 MON; Pulse Ox 95% ; bcj 13:31 BP 161 / 79 (auto/); bcj 13:31 Pulse 106 MON; Pulse Ox 94% ; bcj 13:36 BP 150 / 81 (auto/); bcj 13:36 Pulse 115 MON; Pulse Ox 95% ; bcj 13:41 BP 172 / 86 (auto/); bcj 13:41 Pulse 116 MON; Pulse Ox 96% ; bcj 13:46 BP 207 / 81 (auto/); bcj 13:46 Pulse 118 MON; Pulse Ox 96% ; bcj 13:51 BP 200 / 79 (auto/); bcj 13:51 Pulse 115 MON; Pulse Ox 95% ; bcj 13:56 BP 176 / 64 (auto/); bcj 13:56 Pulse 115 MON; Pulse Ox 96% ; bcj 14:01 BP 146 / 67 (auto/); bcj 14:01 Pulse 113 MON; Pulse Ox 96% ; bcj 14:06 BP 146 / 67 (auto/); bcj 14:06 Pulse 114 MON; Pulse Ox 96% ; bcj 14:11 BP 157 / 82 (auto/); jmb 14:11 Pulse 114 MON; Pulse Ox 94% ; jmb 14:16 BP 154 / 74 (auto/); jmb 14:16 Pulse 118 MON; Pulse Ox 95% ; jmb 14:21 BP 145 / 74 (auto/); jmb 14:21 Pulse 116 MON; Pulse Ox 95% ; jmb 14:26 BP 147 / 66 (auto/); jmb 14:26 Pulse 114 MON; Pulse Ox 96% ; jmb 14:31 BP 176 / 111 (auto/); jmb 14:33 Pulse 123 MON; Pulse Ox 96% ; jmb 14:36 BP 168 / 90 (auto/); jmb 14:36 Pulse 109 MON; Pulse Ox 96% ; jmb 14:40 Pulse 118 MON; Pulse Ox 94% ; jmb 14:41 BP 154 / 78 (auto/); jmb 14:46 BP 136 / 63 (auto/); jmb 14:46 Pulse 114 MON; Pulse Ox 94% ; jmb 14:51 BP 140 / 72 (auto/); jmb 14:51 Pulse 108 MON; Pulse Ox 94% ; jmb 14:56 BP 147 / 68 (auto/); jmb 14:56 Pulse 105 MON; Pulse Ox 94% ; jmb 15:01 BP 152 / 71 (auto/); jmb 15:01 Pulse 106 MON; Pulse Ox 95% ; jmb 15:06 BP 164 / 80 (auto/); jmb 15:06 Pulse 111 MON; Pulse Ox 95% ; jmb 15:11 BP 156 / 71 (auto/); jmb 15:11 Pulse 101 MON; Pulse Ox 96% ; jmb 15:16 BP 145 / 71 (auto/); jmb 15:16 Pulse 110 MON; Pulse Ox 95% ; jmb 15:21 BP 147 / 68 (auto/); jmb 15:21 Pulse 105 MON; Pulse Ox 95% ; jmb 15:26 BP 151 / 75 (auto/); jmb 15:26 Pulse 116 MON; Pulse Ox 95% ; jmb 15:31 BP 155 / 72 (auto/); jmb 15:31 Pulse 105 MON; Pulse Ox 96% ; jmb 15:36 BP 157 / 71 (auto/); jmb 15:36 Pulse 105 MON; Pulse Ox 95% ; jmb 15:41 BP 144 / 67 (auto/); jmb 15:41 Pulse 107 MON; Pulse Ox 95% ; jmb 15:46 BP 142 / 76 (auto/); jmb 15:46 Pulse 102 MON; Pulse Ox 96% ; jmb 15:51 BP 149 / 75 (auto/); jmb 15:51 Pulse 104 MON; Pulse Ox 95% ; jmb 15:56 BP 146 / 75 (auto/); jmb 15:56 Pulse 105 MON; Pulse Ox 95% ; jmb 16:01 BP 150 / 97 (auto/); jmb 16:01 Pulse 103 MON; Pulse Ox 96% ; jmb 16:06 BP 147 / 83 (auto/); jmb 16:06 Pulse 112 MON; Pulse Ox 96% ; jmb 16:11 BP 149 / 98 (auto/); jmb 16:11 Pulse 117 MON; Pulse Ox 96% ; jmb 16:16 BP 172 / 78 (auto/); jmb 16:16 Pulse 110 MON; Pulse Ox 96% ; jmb 16:21 BP 160 / 75 (auto/); jmb 16:21 Pulse 105 MON; Pulse Ox 95% ; jmb 16:26 BP 155 / 71 (auto/); jmb 16:26 Pulse 112 MON; Pulse Ox 96% ; jmb 16:31 Pulse 109 MON; Pulse Ox 96% ; dy 16:31 BP 164 / 83 (auto/); dy 10:49 Body Mass Index 29.84 (99.79 kg, 182.88 cm) elp Vitals: 10:49 Log In Time: May 31, 2016 at 10:46. RN notified that patient meets Red Flag elp criteria. 11:11 Refer to monitor trend for complete vital signs trends. [facility] ED Course: 10:49 Patient visited by Sandy Arevalo PCA. elp 10:49 Dennis is Private Physician. elp 10:49 Patient moved to Waiting elp 10:51 Patient visited by Sandy Arevalo PCA. elp 10:51 Patient moved to Pre RCE elp 10:52 Patient moved to 3 dy 10:53 Triage Initiated pml 10:56 No apparent distress. Resting quietly. Awaiting bed assignment. [facility] 10:56 IV is intact. [facility] 10:58 Patient visited by Jane Nick,BRITTANY. pml 11:04 Pt greeted and oriented to ED. Patient advised of names of staff involved in care, rs6 location of call walters, wait times and NPO status. Accompanied by Significant Other, Patient has correct armband on for positive identification. Placed in gown. Bed in low position. Call light in reach. 11:04 EKG done. (by ED staff). Reviewed by Lyle Bustamante MD. rs6 11:05 Accompanied by Side rails up X 1. electronic device monitor on. Pulse ox on. NIBP on. rs6 11:06 Patient visited by Armida Turner PCA. rs6 11:08 Jane Nick,RN is Primary Nurse. pml 11:11 No apparent distress. Resting quietly. Awaiting ED physician evaluation. bcj 11:11 The patient / caregiver is instructed regarding the plan of care and ED course. bcj 11:11 Inserted saline lock: 20 gauge in right antecubital area. Labs drawn. (by ED staff). bcj Sent per order to lab. 11:14 Patient visited by James Jay, BRITTANY. bcj 11:24 Lyle Bustamante MD is Attending Physician. pc 11:37 Patient visited by Lyle Bustamante MD. pc 11:51 CIP Sent. bcj 11:51 Troponin Sent. bcj 11:51 MED Profile Sent. bcj 11:51 CBC with Diff Sent. bcj 12:21 [facility] [place] Agreement was scanned into [employer] and attached to record. jp5 12:26 Patient visited by James Jay RN. bcj 12:29 Nikki Marin is Hospitalizing Provider. pc 12:37 Patient visited by James Jay RN. bcj 13:10 Patient visited by James Jay RN. bcj 13:11 No apparent distress. Resting quietly. Awaiting bed assignment. bcj 13:11 IV is intact. bcj 14:10 Patient visited by James Jay RN. bcj 15:17 Patient visited by Tim Kapadia RN. jmb 15:18 Patient moved to Admit Hold dy 15:44 Patient visited by Tim Kapadia RN. jmb 16:11 Patient visited by Tim Kapadia RN. jmb 16:49 Patient visited by Tim Kapadia RN. jmb 16:51 Patient moved to 20 dy 17:20 Patient moved to Admit Hold dy 19:05 Primary Nurse role handed off by Jane Nick RN jmb 23:36 No procedures done that require assistance. sls1 Administered Medications: 12:13 Drug: Metoprolol 5 mg [metoprolol 5 mg/5 mL intravenous solution (5 mL)] Route: IVP; bcj Site: right antecubital; 12:13 Drug: Digoxin 0.5 mg [digoxin 250 mcg/mL injection solution (2 mL)] Route: IVP; Site: bcj right antecubital; 12:26 Drug: Metoprolol 5 mg [metoprolol 5 mg/5 mL intravenous solution (5 mL)] Route: IVP; bcj Site: right antecubital; 12:36 Drug: Metoprolol 5 mg [metoprolol 5 mg/5 mL intravenous solution (5 mL)] Route: IVP; j Site: right antecubital; Order Results: Lab Order: CBC with Diff; SPEC'M 05/31/16 11:07 Test: WHITE BLOOD COUNT; Value: 10.3; Range: 4.0-10.0; Abnormal: Above high normal; Units: K/mm3; Status: F Test: RED BLOOD COUNT; Value: 5.32; Range: 4.00-5.40; Units: M/mm3; Status: F Test: HEMOGLOBIN; Value: 15.2; Range: 12.0-16.0; Units: g/dl; Status: F Test: HEMATOCRIT; Value: 46.6; Range: 36.0-47.0; Units: %; Status: F Test: MEAN CORPUSCULAR VOLUME; Value: 87.7; Range: 80.0-96.0; Units: fl; Status: F Test: MEAN CORPUSCULAR HEMOGLOBIN; Value: 28.5; Range: 27.0-33.0; Units: pg; Status: F Test: MEAN CORPUSCULAR HGB CONC; Value: 32.5; Range: 32.0-36.5; Units: g/dl; Status: F Test: RED CELL DISTRIBUTION WIDTH; Value: 13.7; Range: 11.5-14.5; Units: %; Status: F Test: PLATELET COUNT, AUTOMATED; Value: 342; Range: 150-450; Units: k/mm3; Status: F Test: NEUTROPHILS %; Value: 79.2; Range: 36.0-66.0; Abnormal: Above high normal; Units: %; Status: F Test: LYMPH %; Value: 14.0; Range: 24.0-44.0; Abnormal: Below low normal; Units: %; Status: F Test: MONO %; Value: 4.2; Range: 0.0-5.0; Units: %; Status: F Test: EOS %; Value: 0.8; Range: 0.0-3.0; Units: %; Status: F Test: BASO %; Value: 0.5; Range: 0.0-1.0; Units: %; Status: F Test: LARGE UNSTAINED CELL %; Value: 1.3; Range: 0.0-4.0; Units: %; Status: F Test: NEUTROPHILS #; Value: 8.1; Range: 1.8-7.7; Abnormal: Above high normal; Units: K/mm3; Status: F Test: LYMPH #; Value: 1.4; Range: 1.5-4.5; Abnormal: Below low normal; Units: K/mm3; Status: F Test: MONO #; Value: 0.4; Range: 0.0-0.8; Units: K/mm3; Status: F Test: EOS #; Value: 0.1; Range: 0.0-0.50; Units: K/mm3; Status: F Test: BASO #; Value: 0.0; Range: 0.0-0.2; Units: K/mm3; Status: F Test: LARGE UNSTAINED CELL #; Value: 0.1; Range: 0.0-0.4; Units: K/mm3; Status: F Lab Order: MED Profile; SPEC'M 05/31/16 11:07 Test: GLUCOSE, FASTING; Value: 420; Range: 80-110; Abnormal: Above upper panic limits; Units: MG/DL; Status: F Test: BLOOD UREA NITROGEN; Value: 24; Range: 7-18; Abnormal: Above high normal; Units: MG/DL; Status: F Test: CREATININE FOR GFR; Value: 1.16; Range: 0.55-1.02; Abnormal: Above high normal; Units: MG/DL; Status: F Test: GLOMERULAR FILTRATION RATE; Value: 49.9; Range: >45; Status: F Test: SODIUM LEVEL; Value: 138; Range: 136-145; Units: MEQ/L; Status: F Test: POTASSIUM SERUM; Value: 4.8; Range: 3.5-5.1; Units: MEQ/L; Status: F Test: CHLORIDE LEVEL; Value: 101; Range: 98-107; Units: MEQ/L; Status: F Test: CARBON DIOXIDE LEVEL; Value: 25; Range: 21-32; Units: MEQ/L; Status: F Test: ANION GAP; Value: 12; Range: 8-16; Units: MEQ/L; Status: F Test: CALCIUM LEVEL; Value: 8.5; Range: 8.8-10.2; Abnormal: Below low normal; Units: MG/DL; Status: F Test Note: ; Units are mL/min/1.73 m2 Chronic Kidney Disease Staging per NKF: Stage I & II GFR >=60 Normal to Mildly Decreased Stage III GFR 30-59 Moderately Decreased Stage IV GFR 15-29 Severely Decreased Stage V GFR <15 Very Little GFR Left ESRD GFR <15 on DEPARTMENT [employer] Lab Order: Venous Blood Gas (large pea green tube on ice); SPEC'M 05/31/16 12:10 Test: VENOUS PH; Value: 7.381; Range: 7.330-7.430; Units: UNITS; Status: F Test: VENOUS PARTIAL PRESSURE CO2; Value: 44.5; Range: 38.0-50.0; Units: mmHg; Status: F Test: VENOUS PARTIAL PRESSURE O2; Value: 42.5; Range: 30.0-50.0; Units: mmHg; Status: F Test: VENOUS TOTAL CO2; Value: 27.2; Range: 24.0-28.0; Units: MEQ/L; Status: F Test: VENOUS HCO3; Value: 25.8; Range: 23.0-27.0; Units: MEQ/L; Status: F Test: VENOUS BASE EXCESS; Value: 0.3; Range: -2.0-2.0; Status: F Test: VENOUS STANDARD HCO3; Value: 24.3; Units: MEQ/L; Status: F Test: VENOUS O2 SATURATION; Value: 78.6; Range: 60.0-80.0; Units: %; Status: F Lab Order: Troponin; SPEC'M 05/31/16 11:07 Test: TROPONIN I; Value: 0.04; Range: < 0.10; Units: NG/ML; Status: F Test Note: ; Troponin I Reference Interval for Arden Reed LOCI: 99th Percentile= 0.00-0.045 ng/ml Risk Stratification: <= 0.10 ng/ml Decreased Risk for Adverse Clinical Events. 0.10-1.50 ng/ml Increased Risk for Adverse Clinical Events. Evaluation of additional criterion and/or repeat testing in 2-6 hours is suggested to rule out myocardial damage. >= 1.50 ng/ml Indicative of Myocardial Injury. Lab Order: CIP; SPEC'M 05/31/16 11:07 Test: CPK CREATINE PHOSPHOKINASE; Value: 83; Range: 26-192; Units: U/L; Status: F Test: CK-MB VALUE MASS; Value: 2.1; Range: 0.0-3.6; Units: NG/ML; Status: F Test: MB/CK RELATIVE INDEX; Value: 2.53; Range: < OR =4; Status: F Test Note: ; DIAGNOSIS CRITERIA MMB ng/ml Relative Index (RI) NON-AMI < or = 5 N/A NOLAN ZONE > 5 < or = 4 AMI > 5 > 4 Lab Order: CARDIAC MARKER PANEL; [facility] 05/31/16 17:52 Test: CPK CREATINE PHOSPHOKINASE; Value: 55; Range: 26-192; Units: U/L; Status: F Test: CK-MB VALUE MASS; Value: 1.3; Range: 0.0-3.6; Units: NG/ML; Status: F Test: MB/CK RELATIVE INDEX; Value: 2.36; Range: < OR =4; Status: F Test: TROPONIN I; Value: 0.06; Range: < 0.10; Abnormal: Delta; Units: NG/ML; Status: F Test Note: ; DIAGNOSIS CRITERIA MMB ng/ml Relative Index (RI) NON-AMI < or = 5 N/A NOLAN ZONE > 5 < or = 4 AMI > 5 > 4 Lab Order: Fingerstick Blood Sugar; [facility] 05/31/16 18:04 Test: BEDSIDE GLUCOSE; Value: 288; Range: 80-115; Abnormal: Above high normal; Units: MG/DL; Status: F Lab Order: Fingerstick Blood Sugar; [facility] 05/31/16 20:23 Test: BEDSIDE GLUCOSE; Value: 235; Range: 80-115; Abnormal: Above high normal; Units: MG/DL; Status: F Outcome: 12:29 Decision to Hospitalize by Provider. 23:35 Discharge Assessment: Patient awake, alert and oriented x 3. No cognitive and/or sls1 functional deficits noted. Patient verbalized understanding of disposition instructions. patient administered narcotics - no. The following High Risk Discharge criteria are identified: None. Admitted to PCU accompanied by nurse, accompanied by tech, family with patient, via stretcher, on monitor, with chart. Condition: stable. CT Study completed. Property :Personal belongings accompany Pt. 23:36 Patient left the ED. sls1 Signatures: Lyle Bustamante MD MD pc Johnson, Bruce, RN RN Rolando Bloom RN Mercy Brunner RN RN sls1 Jane NickRN RN Sandy Hernandez, TECHNICAL SUPPORT ANALYST TECHNICAL SUPPORT ANALYST elp Tim Kapadia RN RN Armida Cool, TECHNICAL SUPPORT ANALYST TECHNICAL SUPPORT ANALYST rs6 Aye Jha jp5 MTDD
[2016-05-31 23:38] VITALS: BP 138/84
[2016-06-01 04:02] VITALS: BP 130/78
[2016-06-01 05:02] LABS: MEAN CORPUSCULAR HEMOGLOBIN 28.7 pg (27.0-33.0); MEAN CORPUSCULAR HGB CONC 33.6 g/dl (32.0-36.5); MEAN CORPUSCULAR VOLUME 85.3 fl (80.0-96.0); RED CELL DISTRIBUTION WIDTH 13.6 % (11.5-14.5)
[2016-06-01 05:12] LABS: ALBUMIN 3.2 GM/DL (3.2-5.2); ALBUMIN/GLOBULIN RATIO 1.14 (1.00-1.93); ALT/SGPT 25 U/L (12-78); ANION GAP 8 MEQ/L (8-16); AST/SGOT 15 U/L (15-37); BILIRUBIN,TOTAL 0.9 MG/DL (0.2-1.0); BLOOD UREA NITROGEN 18 MG/DL (7-18); CALCIUM LEVEL 8.3 MG/DL (8.8-10.2); CARBON DIOXIDE LEVEL 26 MEQ/L (21-32); CHLORIDE LEVEL 105 MEQ/L (98-107); CHOLESTEROL LEVEL 197 MG/DL (<200); CREATININE FOR GFR 0.91 MG/DL (0.55-1.02); GLOMERULAR FILTRATION RATE > 60.0 (>45); GLUCOSE, FASTING 290 MG/DL (80-110); MAGNESIUM LEVEL 1.7 MG/DL (1.8-2.4); POTASSIUM SERUM 3.9 MEQ/L (3.5-5.1); SODIUM LEVEL 139 MEQ/L (136-145); TRIGLYCERIDES LEVEL 189 MG/DL (<150)
[2016-06-01 05:24] LABS: ALKALINE PHOSPHATASE 71 U/L (45-117); DIGOXIN LEVEL 0.5 NG/ML (0.5-2.0)
[2016-06-01] MEDS: glipiZIDE 10 MG TAB PO SCH (07:30)
[2016-06-01 08:00] VITALS: BP 162/78
[2016-06-01] MEDS: ASPIRIN 81 MG ENTERIC TAB PO SCH (08:10)
[2016-06-01] MEDS: DIGOXIN 0.125 MG TAB PO SCH (08:10)
[2016-06-01] MEDS: APIXABAN 5 MG TAB (ELIQUIS) PO SCH ×2 (08:10→20:17)
[2016-06-01] MEDS: METOPROLOL TART 50 MG TAB PO SCH ×2 (08:10→20:18)
[2016-06-01] MEDS: HumaLOG INSULIN (NovoLOG) PER UNIT SC SCH ×4 (08:11→19:59)
[2016-06-01] MEDS ORDERED: DIGOXIN 0.25 MG TAB PO ONE (09:15)
--- NOTE | 2016-06-01 10:08 | CR.PDOC ---
[facility] Cardiology Consultation Date of Consultation 06/01/16 Cadiology Consultation REFERRING PHYSICIAN: REASON FOR REFERRAL: New onset atrial fibrillation HISTORY OF PRESENT ILLNESS: Ms Jolly is a 66-year-old female with past medical history of diabetes mellitus type 2 poorly controlled due to noncompliance who presented 5 days ago for rapid heart rate, dizziness and some shortness of breath. Patient was found to be in atrial fibrillation and was given Eliquis and metoprolol and sent home. The plan was to cardiovert the patient the next day, however the onset of her atrial fibrillation could not be adequately discerned and thus cardioversion did not occur; however patient continued to experience aforementioned symptoms and was therefore admitted for observation. PAST MEDICAL: 1. DM2 poorly controlled due to medical non-compliance 2. 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 REVIEW OF SYSTEMS: Cardiovascular: Patient denies chest pain but admits to palpitations, states that 5 days ago she was watching television and began to notice sustained palpitations and rapid heart rate. Denies syncope or loss of consciousness. Respiratory: Patient does admit to some shortness of breath that occurred with the onset of the apparent atrial fibrillation 5 days ago, denies cough or wheezing associated with it. GI: Patient denies nausea vomiting or diarrhea, denies change in bowel or urinary habits. Appetite has been appropriate. HEENT: She denies headache or blurred vision Other review systems were negative. PHYSICAL EXAMINATION: VITAL SIGNS: Please see below. GENERAL APPEARANCE: Patient appears well, is sitting upright in bed, conversant , pleasant. EYES: PERRLA, EOMI ENT/Mouth: Moist mucous membranes, nares patent bilaterally, tongue midline NECK: No JVD appreciated, no lymphadenopathy, neck is supple. EXTREMITIES: No swelling, cyanosis, clubbing appreciated SKIN: Intact NEUROLOGIC/PSYCHOLOGIC: Appears appropriate, no focal deficit appreciated. HEART: Tachycardic, irregularly irregular heart rate, normal S1, normal S2, no murmurs, gallops, rubs appreciated. ARTERIAL PULSES: Radial pulses bilateral strong and symmetric +2, bilateral dorsalis pedis +2 LOWER EXTREMITY EDEMA: Negative ABDOMEN: Obese, no hepatomegaly appreciated, nondistended, nontender to palpitation. ALLERGIES: Please see below. HOME MEDICATIONS: Please see below. CURRENT MEDICATIONS: Please see below. Electrocardiogram: 06/01/16- Atrial fibrillation with possible old septal infarct LABORATORY DATA: Please see below. IMAGING: Chest x-ray 05/28/2016 showed: No acute cardiopulmonary process, study somewhat limited by AP portable technique. ASSESSMENT/PLAN: Patient's heart rate seems to be appropriate at this time, she did spike to 150 beats a minute while we're in the room speaking to her; will give another 0.25. Digoxin by mouth today and obtain echocardiogram. As of right now the onset of her atrial fibrillation is still obscure as she does not have significant risk factors, however obesity and poorly controlled diabetes most likely is playing a role. Discussed with patient the above plan to obtain transthoracic echocardiogram, if patient has reduced ejection fraction then the likelihood of this being the causative etiology for her atrial fibrillation is more likely. The patient may need to obtain transesophageal echocardiogram in the future with potential for cardioversion if medically managing the patient does not convert her to normal sinus rhythm. The critical need to manage her diabetes appropriately was discussed. Patient understood the above plan, questions were answered. Thank you kindly for asking me to participate in the care of your patient. Addendum MD Marian: 66yo obese female with probably recent onset atrial fibrillation and fast ventricular rate. Mildly symptomatic. Anticoagulated with Eliquis. Plan for continuation of anticagulation and rate control (bb + digoxin) . Will obtain ECHO and then decide on early management (immediate FEDE/ cardioversion vs 3 weeks of anticoagulation followed by cardioversion). I explained pros and cons of each option. Vital Signs/I&O Vital Signs Date Time Temp Pulse Resp B/P Pulse Ox O2 Delivery O2 Flow Rate FiO2 06/01/16 08:10 113 06/01/16 08:10 130/78 06/01/16 08:00 96.6 18 95 Room Air I&O- Last 24 Hours up to 6 AM 06/01/16 06:00 Intake Total 480 ml Output Total 101 ml Balance 379 ml Laboratory Data Labs 24H Laboratory Tests 2 05/31/16 11:07: Anion Gap 12, White Blood Count 10.3H, Red Blood Count 5.32, Hemoglobin 15.2, Hematocrit 46.6, Mean Corpuscular Volume 87.7, Mean Corpuscular Hemoglobin 28.5 , Mean Corpuscular Hemoglobin Concent 32.5, Red Cell Distribution Width 13.7, Platelet Count 342, Neutrophils (%) (Auto) 79.2H, Lymphocytes (%) (Auto) 14.0L, Monocytes (%) (Auto) 4.2, Eosinophils (%) (Auto) 0.8, Basophils (%) (Auto) 0.5, Neutrophils # (Auto) 8.1H, Lymphocytes # (Auto) 1.4L, Monocytes # (Auto) 0.4, Eosinophils # (Auto) 0.1, Basophils # (Auto) 0.0, Blood Urea Nitrogen 24H, Creatinine 1.16H, Sodium Level 138, Potassium Level 4.8, Chloride Level 101, Carbon Dioxide Level 25, Calcium Level 8.5L, Total Creatine Kinase 83, Creatine Kinase MB 2.1, Creatine Kinase MB Relative Index 2.53, Glomerular Filtration Rate 49.9, Large Unclassified Cells # 0.1, Large Unclassified Cells % 1.3, Troponin I 0.04 05/31/16 12:10: Blood Gas Bicarbonate Standard 24.3, Venous Blood Base Excess 0.3, Venous Blood pH 7.381, Venous Blood Partial Pressure CO2 44.5, Venous Blood Partial Pressure O2 42.5, Venous Blood Total Carbon Dioxide 27.2, Venous Blood HCO3 25.8, Venous Blood Oxygen Saturation 78.6 05/31/16 17:52: Total Creatine Kinase 55, Creatine Kinase MB 1.3, Creatine Kinase MB Relative Index 2.36, Troponin I 0.06# 05/31/16 18:04: Bedside Glucose (Misc Panel) 288H 05/31/16 20:23: Bedside Glucose (Misc Panel) 235H 05/31/16 23:57: Creatine Kinase MB 1.3, Creatine Kinase MB Relative Index 2.88, Total Creatine Kinase 45, Troponin I 0.09# 06/01/16 04:21: Urine Amorphous Sediment , Urine Appearance HAZY, Urine Color YELLOW, Urine pH 5.0, Urine Specific [place] 1.021, Urine Protein NEGATIVE, Urine Glucose (UA) 3+ H, Urine Ketones NEGATIVE, Urine Urobilinogen 0.2, Urine Bilirubin NEGATIVE, Urine Leukocyte Esterase 2+H, Urine Bacteria (Auto) NEGATIVE, Urine Blood NEGATIVE, Urine Calcium Carbonate Cryst(Auto) , Urine Calcium Oxalate Cryst ( Auto) , Urine Calcium Phosphate Makayla (Auto) , Urine Cellular Casts , Urine Creatinine 144.0, Urine Cystine Crystals , Urine Granular Casts (Auto) , Urine Hyaline Casts (Auto) 0, Urine Leucine Crystals , Urine Microalbumin 49.7, Urine Microalbumin/Creatinine Ratio 34.5H, Urine Mucus (Auto) SMALL, Urine Nitrite NEGATIVE, Urine Oval Fat Bodies (Auto) , Urine RBC (Auto) 1, Urine Renal Epithelial Cells , Urine Sperm (Auto) , Urine Squamous Epithelial Cells 1, Urine Transitional Epithelial Cells <1, Urine Trichomonas (Auto) , Urine Triple Phosphate Cryst (Auto) , Urine Tyrosine Crystals , Urine Uric Acid Crystals ( Auto) , Urine WBC (Auto) 13H, Urine Waxy Casts (Auto) , Urine Yeast-Like Cells ( Auto) 06/01/16 04:40: Creatine Kinase MB 1.4, Creatine Kinase MB Relative Index 3.04, Total Creatine Kinase 46, Troponin I 0.06#, Blood Urea Nitrogen 18, Creatinine 0.91, Sodium Level 139, Potassium Level 3.9, Chloride Level 105, Carbon Dioxide Level 26, Calcium Level 8.3L, Aspartate Amino Transf (AST/SGOT) 15, Alanine Aminotransferase (ALT/SGPT) 25, Alkaline Phosphatase 71, Total Bilirubin 0.9, Triglycerides Level 189H, Cholesterol Level 197, HDL Cholesterol 43, LDL Cholesterol 116.2H, Total Protein 6.0L, Albumin 3.2, Albumin/Globulin Ratio 1.14 , Anion Gap 8, Cholesterol/HDL Ratio 4.581, Digoxin Level 0.5, Estimated Mean Plasma Glucose 312H, Glomerular Filtration Rate > 60.0, Hemoglobin A1c 12.5H, Magnesium Level 1.7L, Non-HDL Cholesterol (LDL + VLDL) 154, Thyroid Stimulating Hormone (TSH) 3.640 CBC/BMP Laboratory Tests 05/31/16 11:07 Calcium Level 8.5 L, Total Creatine Kinase 83, Red Blood Count 5.32, Mean Corpuscular Volume 87.7, Mean Corpuscular Hemoglobin 28.5, Mean Corpuscular Hemoglobin Concent 32.5, Red Cell Distribution Width 13.7, Neutrophils (%) (Auto ) 79.2 H, Lymphocytes (%) (Auto) 14.0 L, Monocytes (%) (Auto) 4.2, Eosinophils ( %) (Auto) 0.8, Basophils (%) (Auto) 0.5, Neutrophils # (Auto) 8.1 H, Lymphocytes # (Auto) 1.4 L, Monocytes # (Auto) 0.4, Eosinophils # (Auto) 0.1, Basophils # (Auto) 0.0 06/01/16 04:40 Calcium Level 8.3 L, Total Creatine Kinase 46, Red Blood Count 5.26, Mean Corpuscular Volume 85.3, Mean Corpuscular Hemoglobin 28.7, Mean Corpuscular Hemoglobin Concent 33.6, Red Cell Distribution Width 13.6, Aspartate Amino Transf (AST/SGOT) 15, Alanine Aminotransferase (ALT/SGPT) 25, Alkaline Phosphatase 71, Total Bilirubin 0.9, Triglycerides Level 189 H, Cholesterol Level 197, HDL Cholesterol 43, LDL Cholesterol 116.2 H, Total Protein 6.0 L, Albumin 3.2 FSBS Laboratory Tests Test 05/31/16 18:04 05/31/16 20:23 Range/Units Bedside Glucose (Misc Panel) 288 235 80-115 MG/DL Home Medications Scheduled Apixaban Base (Eliquis) 5 Mg Tab 5 MG PO BID (Reported) Aspirin (Aspirin 81) 81 Mg Tab 81 MG PO DAILY (Reported) Metoprolol Tartrate (Metoprolol Tartrate) 50 Mg Tab 50 MG PO BID (Reported) Multivitamins *[facility] STOCKED* (Thera M Plus *[facility] STOCKED*) 1 Tab Tab 1 TAB PO DAILY (Reported) Current Medications Current Medications Acetaminophen (Tylenol) 650 mg Q4HP PRN PO PAIN OR FEVER; Start 05/31/16 at 12: 30; Stop 06/30/16 at 12:29 Apixaban (Eliquis) 5 mg BID PO Last administered on 06/01/16 08:10; Start at 21:00; Stop 06/07/16 at 20:59 Apixaban (Eliquis) 5 mg STK-MED ONCE As Ordered ; Start 05/31/16 at 20:28; Stop 05/31/16 at 20:29; Status DC Aspirin (Ecotrin) 81 mg DAILY PO Last administered on 06/01/16 08:10; Start at 09:00; Stop 07/01/16 at 08:59 Dextrose (Dextrose 50%) 25 ml ASDIRECTED PRN IV SEE LABEL COMMENTS; Start 05/31 at 12:30; Stop 06/30/16 at 12:29 Digoxin (Lanoxin) 0.125 mg DAILY PO Last administered on 06/01/16t 08:10; Start 06/01/16 at 09:00; Stop 07/01/16 at 08:59 Digoxin (Lanoxin) 0.25 mg ONCE ONCE PO ; Start 06/01/16 at 09:15; Stop at 09:16; Status DC Digoxin (Lanoxin) 0.5 mg ONCE ONCE IV ; Start 05/31/16 at 12:30; Stop 05/31/16 at 12:31; Status UNV Digoxin (Lanoxin) 0.5 mg STK-MED ONCE As Ordered ; Start 05/31/16 at 11:55; Stop 05/31/16 at 11:56; Status DC Glipizide (Glucotrol) 10 mg BID@0730,1730 PO ; Start 05/31/16 at 17:30; Stop at 17:29 Glucagon (Glucagon) 1 mg ASDIRECTED PRN SC SEE LABEL COMMENTS; Start 05/31/16 at 12:30; Stop 06/30/16 at 12:29 Glucose (Glucose) 16 GM ASDIRECTED PRN PO SEE LABEL COMMENTS; Start 05/31/16 at 12:30; Stop 06/30/16 at 12:29 Home Med (Med Rec Complete!) ASDIRECTED XX ; Start 05/31/16 at 12:15; Stop at 12:16; Status DC Influenza Virus Vaccine (Fluzone High Dose) 0.5 ml 1T@09 IM ; Start 06/02/16 at 09:00; Stop 06/02/16 at 23:59 Insulin Detemir (Levemir Insulin) 10 units STK-MED ONCE As Ordered ; Start 05/31 at 20:36; Stop 05/31/16 at 20:37; Status DC Insulin Detemir 10 units 10 units QHS SC Last administered on 05/31/16t 20:38; Start 05/31/16 at 21:00; Stop 06/30/16 at 20:59 Insulin Human Lispro (HumaLOG INSULIN) 8 units STK-MED ONCE As Ordered ; Start 05/31/16 at 18:26; Stop 05/31/16 at 18:27; Status DC Insulin Human Lispro (HumaLOG INSULIN) SEE PROTOCOL TABLE AC SC Last administered on 06/01/16t 08:11; Start 05/31/16 at 17:30; Stop 06/30/16 at 17:29 Insulin Human Lispro (HumaLOG INSULIN) SEE PROTOCOL TABLE QHS SC ; Start at 21:00; Stop 06/30/16 at 20:59 Metoprolol Tartrate (Lopressor) 15 mg STK-MED ONCE As Ordered ; Start 05/31/16 at 11:55; Stop 05/31/16 at 11:56; Status DC Metoprolol Tartrate (Lopressor) 50 mg BID PO Last administered on 06/01/16t 08: 10; Start 05/31/16 at 21:00; Stop 06/30/16 at 20:59 Metoprolol Tartrate (Lopressor) 50 mg STK-MED ONCE As Ordered ; Start 05/31/16 at 20:28; Stop 05/31/16 at 20:29; Status DC Ondansetron HCl (Zofran) 4 mg Q6HP PRN IV NAUSEA OR VOMITING; Start 05/31/16 at 12:30; Stop 06/30/16 at 12:29 Pneumococcal Polyvalent Vaccine (Prevnar 13) 0.5 ml 1T@09 IM ; Start 06/02/16 at 09:00; Stop 06/02/16 at 23:59 Sodium Chloride (Nacl 0.9%) 1,000 ml @ 75 mls/hr [id number] IV ; Start 05/31/16 at 17:00; Stop 06/01/16 at 06:19; Status DC Allergies Allergies: Coded Allergies: No Known Allergies (Unverified , 05/29/16) GME ATTESTATION GME ATTESTATION My preceptor for this patient encounter was physically present in the building during the encounter and was fully available. As needed, all aspects of the patient interview, examination, medical decision making process, and medical care plan development were reviewed and approved by the preceptor. Preceptor is aware and concurs with the plan as stated in the body of this note and will attest to such by his/her cosignature. NIKKO XIONG DO Jun 01, 2016 10:08 Mellisa Mitchell MD Jun 01, 2016 21:47
[2016-06-01] MEDS: IBUPROFEN 400 MG TAB PO PRN (10:43)
[2016-06-01 12:00] VITALS: BP 130/62
[2016-06-01] MEDS ORDERED: MAG SULF 1GM/100ML (MAG RUN) 1 GM in APPROPRIATE DILUENT 1 EA IV ONE (12:00)
--- NOTE | 2016-06-01 12:42 | IPN ---
DATE OF EXAMINATION: 06/01/2016 SUBJECTIVE: The patient tells me that she is still feeling palpitations and tremulous. She denies chest pain or associated shortness of breath. No nausea, vomiting, or diarrhea. OBJECTIVE: VITAL SIGNS: Temperature 96/6. Pulse: She is approximately 100 beats per minute when I am observing her on telemetry for several minutes. Respiratory rate is 18. Blood pressure (BP) 162/78. Oxygen (O2) saturation 95% on room air. GENERAL: She is an obese elderly female. She is lying in bed at a 60-degree angle. She does not appear to be in any acute distress. HEENT: Cranial nerves II-XII are grossly intact. She has moist mucous membranes. No elevation in central venous pressure. CARDIOVASCULAR EXAMINATION: S1, S2. Irregularly irregular, tachycardic. RESPIRATORY EXAMINATION: Is clear. ABDOMINAL EXAMINATION: Obese. EXTREMITIES: No clubbing, cyanosis, or edema. LABORATORY STUDIES: WBC 8.0, hemoglobin 50.1, hematocrit 44.9, platelet count 309. Chemistry panel: Sodium 139, potassium 3.9, chloride 105, bicarbonate 26, BUN 18, creatinine 0.9, fasting glucose 290, hemoglobin A1c of 12.5, magnesium 1.7 repleted. The patient has multiple subsequent cardiac enzymes which are negative. She has a lipid panel with an elevated LDL. She has a TSH within normal limits. No new imaging. ASSESSMENT AND PLAN: Please note at the time of this dictation, there is no history and physical (H and P) available in the chart. This is a 66-year-old female with new onset of atrial fibrillation with rapid ventricular response. PROBLEMS: 1. Atrial fibrillation with rapid ventricular response. The patient reportedly initially presented with symptoms on . Was discharged from the emergency room (ER) and told to return on Wednesday. She came back on Wednesday and at that time was discharged once again with metoprolol and Eliquis, which she tells me she has been taking at home. She re-presented again yesterday evening with persistence of symptoms. This morning, her heart rate was in the low 100s when I examined her. Overnight, she received metoprolol 50 twice a day, as well as one dose of digoxin. I will start her on by mouth regular digoxin. An echocardiogram has been ordered. I have spoken with Dr. Mitchell this morning to see the patient in consultation. We discussed the possibility of the patient potentially undergoing cardioversion in the near future. At the present time, the patient is hemodynamically stable. 2. Type 2 diabetes, uncontrolled. The patient is very particular and has declined several interventions and outpatient treatments in the past. 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 She is currently on sliding scale insulin. She is refusing glipizide, which is a new medication for her. Given her elevated hemoglobin A1c, I think she would benefit from just insulin therapy alone. I will discontinue glipizide. 3. Morbid obesity, complicating care. 4. Elevated low-density lymphocyte (LDL). Given the patient's comorbidities, I suspect she would likely benefit from a statin therapy. I have not had the chance to discuss this with her. However, I suspect she may not accept it, given her history of declining therapy for it in the past from her outpatient providers. 5. Deep venous thrombosis (DVT) prophylaxis. The patient is on Eliquis. DISPOSITION: Will continue to monitor the patient in the progressive care unit until we achieve good rate control.
--- NOTE | 2016-06-01 12:50 | ECGEPIP ---
Stationary ECG Study [facility] - ED Test Date: 2016-05-31 Pat Name: GALO CAMERON Department: Room: [place] [address] Gender: F Is Consultant: vijay : 1950 Requested By: Lyle Guerrero Order Number: [id number] Reading MD: Modesta Nowak Measurements Intervals [place] Rate: 168 P: [place]: 0 QRS: 48 QRSD: 90 T: -33 QT: 264 QTc: 442 Interpretive Statements ATRIAL FIBRILLATION WITH RAPID VENTRICULAR RESPONSE NONSPECIFIC ST & T-WAVE ABNORMALITY INCREASED RATE 05/29/16 Electronically Signed On 06-01-2016 12:50:23 EST by Modesta Nowak
[2016-06-01 15:30] VITALS: BP 128/58
[2016-06-01] MEDS ORDERED: DIGOXIN 0.125 MG TAB PO ONE (19:15)
--- NOTE | 2016-06-01 19:54 | ECGEPIP ---
Stationary ECG Study [facility] Test Date: 2016-06-01 Pat Name: GALO CAMERON Department: Room: [place] [address] Gender: F Physical Science Aide: AKHIL : 1950 Requested By: GUILLERMINA Rolon Order Number: [id number] Reading MD: Leon Black Measurements Intervals [place] Rate: 122 P: [place]: 0 QRS: 37 QRSD: 85 T: 22 QT: 307 QTc: 438 Interpretive Statements Atrial fibrillation with rapid ventricular response Anteroseptal WI, age indeterminate Nonspecific ST-T wave abnormalities Compared to prior tracing of 05/31/2016, heart rate is slower Electronically Signed On 06-01-2016 19:54:52 EST by Leon Black
[2016-06-01 20:17] VITALS: BP 149/80
[2016-06-01] MEDS: LEVEMIR (INSULIN DETEMIR) 1 UNITS/0.01ML SC SCH (20:17)
--- NOTE | 2016-06-01 20:45 | HPE ---
DATE OF ADMISSION: 06/01/2016 PRIMARY CARE PROVIDER: Dr. Joshua Collins DESIGN ENGINEERING MANAGER: Dr. Mitchell HISTORY OF PRESENT ILLNESS: This is a 66-year-old female with recent diagnosis of atrial fibrillation, started on Eliquis by the emergency room on Wednesday, type 2 diabetes, noncompliant and refuses medications, hypercholesterolemia, and hypertension, refuses treatment, presented to the emergency room with four day history of ongoing palpitations. The patient noted this while she was at rest at home on morning, which persisted without accompanying diaphoresis, chest pain, pressure, tightness, lightheadedness, or near syncopal episode. The patient was seen in the emergency room and was rate controlled. She did receive a dose of flecainide and amiodarone without conversion. She was supposed to followup with Dr. Mitchell as an outpatient and now returns with persistent palpitations and found to have atrial fibrillation with rapid ventricular response with a ventricular rate of 165 to 170. The patient has been noncompliant with her medications since diagnosis of diabetes two years ago. She has refused to take metformin. She has also refused to take blood pressure medications and states that she has not been exhibiting any polyuria or polydipsia, weight loss. Denies any headaches, changes in vision, chest pain, pressure or tightness and states that she does not believe in taking these medications because of all the side effects. The hospitalist service was called for admission for atrial fibrillation with rapid ventricular response. She otherwise denies any fevers, chills, weight gain, weight loss, shortness of breath, chest pain, pressure, tightness. Complains of palpitations without lightheadedness, dizziness or falls. No near syncopal episodes. Denies nausea, vomiting, abdominal pain, constipation, diarrhea, dysuria, urgency, frequency. Denies any generalized weakness. Denies any history of depression, anxiety, joint pains, muscle aches, rhinorrhea, sore throat, changes in vision. All other systems are negative. PAST MEDICAL HISTORY: 1. Type 2 diabetes diagnosed two years ago and refused treatment. 2. Hypercholesterolemia. 3. Hypertension, refused treatment. 4. Recent diagnosis of atrial fibrillation last , four days ago. Currently taking Eliquis 5 mg twice a day, metoprolol 50 mg twice a day. PAST SURGICAL HISTORY: 1. Appendectomy. 2. Hysterectomy. 3. Tonsillectomy. 4. section times three. ALLERGIES: No known drug allergies. HOME MEDICATIONS: - metoprolol 50 mg twice a day - Eliquis 5 mg twice a day SOCIAL HISTORY: Former smoker, quit decades ago. Denies any alcohol use. 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 Lives with , who is a registered nurse on [employer]. FAMILY HISTORY: Father at age 64 of colon cancer. Mother at age 63 with coronary artery disease. Brother and sister. One of suicide and two are healthy. REVIEW OF SYSTEMS: As per history of present illness. 12-point system otherwise negative. PHYSICAL EXAMINATION: VITAL SIGNS: Blood pressure 144/100, pulse oximetry 70%, respiratory rate 20, temperature 97.7, 98% on room air, 99.79 kg, 6 feet 0 inches tall. GENERAL: Awake, alert, oriented times three. Answering questions appropriately. HEENT: No jugular venous distention (JVD). Normocephalic, atraumatic. Pupils are round, reactive to light and accommodation. Dry mucous membranes. No thyromegaly, cervical lymphadenopathy or pharyngeal erythema. LUNGS: Clear to auscultation. No wheezing, rales or rhonchi. I:E ratio is normal. HEART: S1, S2. Irregularly irregular. Nondisplaced point of maximal impulse. No murmurs, rubs, or gallops noted. ABDOMEN: Obese, soft, nontender, nondistended. EXTREMITIES: Trace edema bilaterally. Pulses noted. SKIN: Warm, dry, well perfused, pink in color. EKG: Atrial fibrillation, ventricular rate of 168, nonspecific ST-T wave changes with rapid ventricular response. White count 10, hemoglobin 15, hematocrit 46, platelet count 342, 79% neutrophils. Sodium 138, potassium 4.9, chloride 101, bicarbonate 25, BUN 24, creatinine 1.16 , glucose 420, total CK 83, MB fraction 3.1, troponin 0.01. Chest x-ray on 05/28/2016 showed no acute cardiopulmonary process. 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 Collins. Has placed herself on chronic aspirin 81 mg daily, hypercholesterolemia, hypertension, refused treatment, presented to the emergency room twice in the past four days since with complaints of palpitations and found to have atrial fibrillation with rapid ventricular response. The patient was given flecainide, amiodarone for the past two emergency room visits and sent home on metoprolol. She has been taking it at home, as well as Eliquis for CVA prophylaxis, now presents with intractable atrial fibrillation with rapid ventricular response, rate of 170. The patient will be admitted for observation for the following issues: 1. Atrial fibrillation with rapid ventricular response. The patient has been noncompliant in the past for diabetes and hypertension. We had a david discussion about her having to stay in the hospital due to inability to control the atrial fibrillation as an outpatient. She will be placed on metoprolol [address] Chowdhury, as well as digoxin and check a dig level in the morning and titrate accordingly. Current rate at the bedside is 90 to 110, appears to be responding well. Continue with anticoagulation with Eliquis 5 mg twice a day. Monitor for falls. 2. Type 2 diabetes, noncompliant with medication. The patient refused treatment. We will check for microalbuminemia. We will renally dose all medications due to acute kidney injury. The patient will be placed on Lantus insulin 5 units at night for baseline control. Check A1/c level. Sliding scale. Consistent carbohydrate diet. Due to acute kidney injury, the patient was placed on glipizide, which is safe in renal failure. The patient was agreeable to taking these medications during the hospitalization. 3. Hypertension, uncontrolled. Continue metoprolol for now. The patient may benefit from an yejwnqgjlel-swqeevibtg-kueajb (LU) inhibitor in light of the patient's diabetes. No left ventricular hypertrophy noted on EKG. The patient will need a 2-D echo. CHADs score is greater than 2. She will be kept on Eliquis. 4. Acute kidney injury. Light fluid hydration. Most likely related to untreated diabetes and hypertensive heart disease. We will check urine for microalbumin. The patient may benefit from LU inhibitor and ARB buttermaker continuous churn for renal protection. Repeat metabolic panel in the morning. 5. Deep vein thrombosis (DVT) prophylaxis. Currently on Eliquis. The patient will be assigned to Dr. Ahsan Ernst at 10:00 p.m. on 05/31/2016. He will assume care of this patient at 7:00 a.m. on 06/01/2016. The patient will be assigned to Dr. Kathleen Galvan for any acute issues overnight. We will cycle the cardiac markers and monitor electrolytes. HANNA
[2016-06-02 00:57] VITALS: BP 122/74
[2016-06-02 04:09] VITALS: BP 140/71
[2016-06-02 07:30] VITALS: BP 145/93
[2016-06-02] MEDS: HumaLOG INSULIN (NovoLOG) PER UNIT SC SCH ×2 (08:42→12:39)
[2016-06-02] MEDS ORDERED: INFLUENZA VIRUS VACCINE HIGH DOSE 0.5 ML SYRINGE (90662) IM SCH (09:00)
[2016-06-02] MEDS ORDERED: ATORVASTATIN 20 MG TAB PO SCH (09:00)
[2016-06-02] MEDS ORDERED: MAGNESIUM OXIDE 400 MG TAB (MAG-OX) PO SCH (09:00)
[2016-06-02] MEDS ORDERED: PREVNAR 13 VACCINE SYRINGE (CPT CODE:90670) IM SCH (09:00)
--- NOTE | 2016-06-02 09:56 | REP ---
DUPLEX EXTREMITY VENOUS ULTRASOUND LEFT LOWER EXTREMITY: HISTORY: Worsening left lower extremity pain. FINDINGS: The deep veins are anechoic and fully compressible from the groin to the popliteal fossa in the left lower extremity. Color flow imaging is homogeneous. Spectral Doppler interrogation demonstrates intact respiratory variation in flow and normal manual augmentation of flow. There is no evidence of deep vein thrombosis. Scanning at the area of palpable abnormality in the left lateral calf shows no evidence of cyst mass or abnormal fluid collection. IMPRESSION: Negative left lower extremity duplex venous ultrasound. No evidence of deep vein thrombosis. Signed by Rocael Aleman MD 06/02/2016 02:31 P
[2016-06-02 09:59] VITALS: BP 145/93
[2016-06-02] MEDS: ASPIRIN 81 MG ENTERIC TAB PO SCH (09:59)
[2016-06-02] MEDS: METOPROLOL TART 50 MG TAB PO SCH (09:59)
[2016-06-02] MEDS: DIGOXIN 0.125 MG TAB PO SCH (09:59)
[2016-06-02] MEDS: APIXABAN 5 MG TAB (ELIQUIS) PO SCH (09:59)
[2016-06-02] MEDS: IBUPROFEN 400 MG TAB PO PRN (10:12)
[2016-06-02 10:50] LABS: MEAN CORPUSCULAR HEMOGLOBIN 28.6 pg (27.0-33.0); MEAN CORPUSCULAR HGB CONC 32.4 g/dl (32.0-36.5); MEAN CORPUSCULAR VOLUME 88.2 fl (80.0-96.0); RED CELL DISTRIBUTION WIDTH 14.7 % (11.5-14.5); WHITE BLOOD COUNT 9.4 K/mm3 (4.0-10.0)
--- NOTE | 2016-06-02 10:56 | IPN ---
DATE OF SERVICE: 06/02/2016 A 66-year-old female seen at bedside. No overnight issues reported. She is resting comfortably in bed. She did have some pain, however, that she did discuss with the overnight resident in the left calf area, and an ultrasound of the legs is pending at this time, as well as her 2D echocardiogram. OBJECTIVE: Temperature is 96.2, pulse is 109, respiratory rate is 20, blood pressure (BP) 145/93, SpO2 is 96% on room air. General: The patient appears to be in no acute distress. He is alert, oriented, pleasant to talk to. Heart is irregularly irregular. Abdomen is soft. LABORATORY DATA: Is pending at this time. Ultrasound of the lower extremity: No evidence of deep venous thrombosis (DVT). ASSESSMENT AND PLAN: 1. Atrial fibrillation with rapid ventricular response (RVR). Continue on metoprolol, Eliquis, and currently is on digoxin, as well. Appreciate Dr. Mitchell's input. 2. Diabetes, poorly controlled. Continue on sliding scale coverage. Her hemoglobin A1c is over 12. Glipizide has been discontinued. Will see about modifying her insulin dosage. She will need diabetic education and for prescriptions to be arranged at her pharmacy. 3. Morbid obesity, which can complicate medical care. 4. Elevated low-density lymphocyte (LDL) with her current comorbidities. She likely would benefit from statin therapy. 5. Deep venous thrombosis (DVT) prophylaxis. On Eliquis. DISPOSITION: She will continue on telemetry. Appreciate Dr. Mitchell's input regarding better rate control.
[2016-06-02 11:20] LABS: ANION GAP 10 MEQ/L (8-16); BLOOD UREA NITROGEN 14 MG/DL (7-18); CALCIUM LEVEL 8.5 MG/DL (8.8-10.2); CARBON DIOXIDE LEVEL 26 MEQ/L (21-32); CHLORIDE LEVEL 104 MEQ/L (98-107); CREATININE FOR GFR 0.89 MG/DL (0.55-1.02); GLOMERULAR FILTRATION RATE > 60.0 (>45); GLUCOSE, FASTING 248 MG/DL (80-110); POTASSIUM SERUM 3.9 MEQ/L (3.5-5.1); SODIUM LEVEL 140 MEQ/L (136-145)
--- NOTE | 2016-06-02 11:21 | IPNPDOC ---
[facility] Cardiology Progress Note Date of Service/Time The patient was seen on 06/02/16 at 11:08. Cardiology Progress Note SUBJECTIVE: Ms Jolly is a 66-year-old female admitted for a. fib, when seen at bedside this AM she appears to be doing quite well. She was sitting up in bed, conversant and in no distress. She states her "tremors" have stopped and admitted to walking in the hospital without difficulty or SOB. She denied chest pain or experiencing palpitations. OBJECTIVE: PHYSICAL EXAMINATION: VITAL SIGNS: Please see below. GENERAL APPEARANCE: well appearing, obese female, sitting in bed comfortably, in no acute distress, non- labored breathing HEENT: NCAT, EOMI, nares patent b/l, moist mucus membranes, tongue midline LUNGS: CTA b/l, no rales, rhonchi or wheezing appreciated, good air expansion b/ l HEART: irregularly irregular in the 90's, no murmurs or gallops appreciated, normal s1 and s2. ABDOMEN: obese, soft, non-distended, non tender SKIN: intact EXTREMITIES: minimal swelling in b/l LE, no cyanosis or clubbing appreciated, patient is tender to palpitation in left lower extremity from brown recluse spider bite that apparently occurred 4-5 years prior NEUROLOGICAL: no focal deficits appreciated PSYCHIATRIC: affect appropriate LABORATORY WORK: Please see below. ASSESSMENT AND PLAN: Ms Jolly heart rate is still not optimally controlled, ranges from 80-90's with spikes in the 120's, she is currently on metoprolol and digoxin therapy. It seems her tachycardia is worsened with ambulation or exertion, spoke to the patient that we would look at adjusting her dose of digoxin therapy when she is discharged ( which we anticipate is soon) for better rate control. She could be discharged on Eliquis for anticoagulation and then follow up outpatient with our office after 3 weeks for cardioversion if she has not converted to NSR by then. The pt stated that she would like to go home on Insulin therapy for her diabetes, not an oral medication and while we will not manage he diabetes, I think this is a good idea to be left to her primary care team/provider. She will receive her ECHO today, as the department was closed yesterday for holiday , pending this has no acute findings, we will recommend she be discharged on anticoagulation and then follow up with our office for cardioversion. It was explained to the patient that she will need to monitor her heart rate at home and document this closely. No further recommendations at this time. Vital Signs/I&O VS/I&O Vital Signs Date Time Temp Pulse Resp B/P Pulse Ox O2 Delivery O2 Flow Rate FiO2 06/02/16 09:59 123 06/02/16 09:59 145/93 06/02/16 07:45 Room Air 06/02/16 07:30 96.2 20 96 I&O- Last 24 Hours up to 6 AM 06/02/16 06:00 Intake Total 1660 ml Output Total 1150 ml Balance 510 ml Laboratory Data 24H LABS Laboratory Tests 2 06/01/16 11:34: Bedside Glucose (Misc Panel) 216H 06/01/16 17:06: Bedside Glucose (Misc Panel) 228H 06/01/16 19:51: Bedside Glucose (Misc Panel) 200H 06/02/16 07:39: Bedside Glucose (Misc Panel) 230H 06/02/16 10:41: CBC/BMP Laboratory Tests 06/02/16 10:41 Red Blood Count 5.41 H, Mean Corpuscular Volume 88.2, Mean Corpuscular Hemoglobin 28.6, Mean Corpuscular Hemoglobin Concent 32.4, Red Cell Distribution Width 14.7 H FSBS Laboratory Tests Test 06/01/16 11:34 06/01/16 17:06 06/01/16 19:51 06/02/16 07:39 Range/Units Bedside Glucose (Misc Panel) 216 228 200 230 80-115 MG/DL GME ATTESTATION GME ATTESTATION My preceptor for this patient encounter was physically present in the building during the encounter and was fully available. As needed, all aspects of the patient interview, examination, medical decision making process, and medical care plan development were reviewed and approved by the preceptor. Preceptor is aware and concurs with the plan as stated in the body of this note and will attest to such by his/her cosignature. NIKKO XIONG DO Jun 02, 2016 11:21
[2016-06-02 12:00] VITALS: BP 136/94
[2016-06-02] MEDS ORDERED: ACCUKIT13 XX (12:20)
[2016-06-02] MEDS ORDERED: DIGO0.12 PO (12:20)
[2016-06-02] MEDS ORDERED: INSUDET SC ×2 (12:20→14:38)
[2016-06-02] MEDS ORDERED: GLUC4CHW PO (12:20)
[2016-06-02] MEDS ORDERED: B-D1MIS3 XX (12:20)
[2016-06-02] MEDS ORDERED: MAG400TA PO (12:20)
[2016-06-02] MEDS ORDERED: INSUHUMDS SC ×2 (12:20→14:38)
[2016-06-02] MEDS ORDERED: ACCUKIT15 XX (12:20)
--- NOTE | 2016-06-02 12:49 | DSES ---
DATE OF ADMISSION: 06/01/2016 DATE OF DISCHARGE: 06/02/2016 PRIMARY CARE PROVIDER: Joshua Collins Jr., MD CONSULTANTS: Mellisa Mitchell MD PROCEDURES: None. COMPLICATIONS: None. ADMISSION/DISCHARGE DIAGNOSES: 1. New onset of atrial fibrillation with rapid ventricular response. 2. Diabetes, poorly controlled. 3. Morbid obesity, which can complicate medical care. 4. Elevated low-density lymphocyte (LDL) with refusal to start statin therapy. 5. History of hypertension. BRIEF HOSPITAL COURSE: Ms. Jolly is a 66-year-old female recently diagnosed with atrial fibrillation, started on Eliquis in the emergency department, approximately 4-5 days ago, has been poorly compliant with her diabetes, and has had ongoing palpitations. Return to the emergency department a few days ago, she received a dose of flecainide and amiodarone without cardioversion. Was admitted for better rate control. Her atrial fibrillation this morning does appear to be doing much better. Currently, her ventricular rate is running in the 90s to 110s, and she does have a 2-D echocardiogram that is pending today. Dr. Mitchell has seen her at bedside this morning. He did feel that she is progressing quite nicely. She has no perceivable barriers to care at home and is requesting be discharged later today once her echocardiogram has been completed and read. Will try to facilitate that. I did speak to Dr. Mitchell regarding this, as well as patient and her , the importance of appropriate followup and medication regimen that she will be started on. For further information regarding intake, physical, laboratories, diagnostics, please refer the history and physical (H and P), as well as Dr. Mitchell's consultation. PHYSICAL EXAMINATION: Please refer to today's progress note. CURRENT LABORATORIES: White count is 9.4, hemoglobin is 15.5, platelets 302,000. Sodium 140, potassium 3.9, chloride 104, bicarbonate 26, anion gap 10, BUN is 14 , creatinine 0.89, glucose is 248. Her hemoglobin A1c is 12.5, consistent with poorly controlled diabetes. She did have an ultrasound of the lower extremities due to calf pain. Most likely, this is related to a low magnesium level. Her ultrasound of the lower extremities was negative for deep venous thrombosis (DVT). 2D echocardiogram is pending. It should be read later today by Dr. Mitchell. DISCHARGE CONDITION: Is good. DISPOSITION: Discharged home. DISCHARGE MEDICATIONS: - digoxin 0.125 mg daily - glucose tablets as needed as needed hypoglycemic protocol - Levemir 14 units subcutaneous nightly - lispro as directed per [facility] sliding scale protocol - magnesium oxide 400 mg daily - Eliquis 5 mg twice a day - aspirin 81 mg daily - metoprolol tartrate 50 mg twice a day - multivitamin one tablet daily DISCHARGE INSTRUCTIONS: Discharge to home once her echocardiograms has been read later today and is cleared by Dr. Mitchell. She should followup with Dr. Mitchell in a week regarding her atrial fibrillation. Currently, she is on metoprolol, digoxin, and Eliquis for anticoagulation therapy. She should continue with consistent-carbohydrate diet. Activity as tolerated. Followup with her primary care provider, Dr. Collins, in 1-2 weeks. Prescriptions were sent in, as well as insulin and diabetic testing supplies. She should take those fingerstick blood sugars to her next office visit with her primary care provider to see if she needs to further modify her insulin regimen. Transition of care again is regarding followup with a personnel adviser, continuing metoprolol, digoxin for heart rate and Eliquis for anticoagulation therapy, and primary care provider for review of fingerstick blood sugar readings and further adjustment of her insulin. She is encouraged to return to the emergency department if symptoms should worsen or progress. She was updated on her influenza vaccine, as well as Prevnar 13. Discharge took approximately 35 minutes. HANNA
--- NOTE | 2016-06-02 19:21 | ECHO ---
DATE OF PROCEDURE: 06/02/2016 REFERRING PHYSICIAN: Tutu Mcintyre MD INDICATION: Abnormal ECG and atrial fibrillation. HEIGHT: 183 cm WEIGHT: 99.8 kg DIMENSIONS: IVS: 1.1 LV: 3.9 LVPW: 1.1 LA: 4.1 Aorta: 3.2 FINDINGS: Study is of good technical quality. Left ventricle is normal size and systolic function with estimated left ventricular ejection fraction (LVEF) approximately 70%. Right ventricle is also normal size. Left atrium is probably mildly enlarged. Right atrium appears grossly normal size. Aortic, mitral, tricuspid and pulmonic valves were all reasonably well seen and appear normal. There are minimal calcifications at the mitral annulus. No pericardial effusion is noted. Inferior vena cava is normal size. Aortic root, aortic arch and abdominal aorta all appear normal. Doppler interrogation of aortic valve reveals no stenosis or insufficiency. There is trace mitral and trace tricuspid insufficiency. Calculated pulmonary artery pressure is within normal limits. Pulmonic valve is functionally competent. Mitral inflow pattern and tissue Doppler imaging of mitral annulus are nondiagnostic for diagnosis of diastolic function due to underlying atrial fibrillation. CONCLUSIONS: 1. Study is of good technical quality. 2. Normal LV size and systolic function. 3. No hemodynamically significant valvular disease. 4. Likely normal central venous pressure and pulmonary artery pressure. 5. Mild left atrial enlargement. COMMENT: Subacute bacterial endocarditis (SBE) prophylaxis is not recommended.
[2016-06-02] MEDS ORDERED: LEVEMIR (INSULIN DETEMIR) 1 UNITS/0.01ML SC SCH (21:00)
--- NOTE | 2016-06-03 00:37 | EDDOCDS ---
Nurse's Notes [facility] Name: Oly Jolly Age: 66 yrs Sex: Female : 1950 Arrival Date: 05/31/2016 Time: 10:47 Bed Admit Hold Private MD: Dennis Diagnosis: Persistent atrial fibrillation;Type 2 diabetes mellitus with hyperglycemia Presentation: 05/31 10:52 Presenting complaint: Patient states: noted elevated heart rate this morning which was pml improved but then worsened again. pt states she feels like she is not getting enough oxygen. Adult Sepsis Screening: The patient does not have new or worsening altered mentation. Patient's respiratory rate is less than 22. Systolic blood pressure is greater than 100. Patient has a qSOFA score of 0- Negative Sepsis Screen. Suicide/Homicide risk assessment- the patient denies having any suicidal and/or homicidal ideations and does not present with any other emotional, behavioral or mental health complaints. Status: Patient is not a job service consultant or dependent. Transition of care: patient was not received from another setting of care. 10:52 Acuity: RA Level 2 pml 10:52 Method Of Arrival: Walkin/Carried/Asstd pml Triage Assessment: 10:55 General: Appears in no apparent distress, comfortable, Behavior is appropriate for age, pml cooperative. Pain: Denies pain. The patient is triaged at the bedside. See Assessment in Nurses Notes section of ED record. Neurological: Level of Consciousness is awake, alert, Oriented to person, place, time. Cardiovascular: Capillary refill < 3 seconds Rhythm is atrial fibrillation with rapid ventricular response Chest pain is denied. Respiratory: Airway is patent Respiratory effort is even, unlabored, Reports shortness of breath intermittently with episodes of rapid heart rate - denies at this time. GI: Abdomen is non- distended obese, Reports nausea, during episodes of rapid heart rate - denies at this time. Derm: Skin is pink, warm & dry. Historical: - Allergies: no known allergies; - Home Meds: 1. metoprolol tartrate 50 mg Oral tab 1 tab 2 times per day 2. Eliquis 5 mg oral tab 1 tab 2 times per day - PMHx: Type 2 DM - refused treatment, High Cholesterol - refused treatment; Atrial Fib; - PSHx: Appendectomy; Hysterectomy; Tonsillectomy; x 3; - The history from nurses notes was reviewed: and I agree with what is documented. - Social history: Smoking status: Patient states former smoker of tobacco. No barriers to communication noted, The patient speaks fluent Czech, Speaks appropriately for age. - Family history: Not pertinent. - : The pt / caregiver states he / she is on anticoagulants: Eliquis Home medication list is obtained from family members. - Hospitalizations: : No recent hospitalization is reported. - Exposure Risk Screening:: None identified. - Immunization history:: All immunizations up-to-date. - Social history:: the patient is a non-smoker, the patient does not drink alcohol. Screenin:11 Screening information is obtained from the patient. Fall risk: No risks identified. bcj Assistance ADL's: requires no assistance with activities of daily living. Abuse/DV Screen: The patient / caregiver reports he/she is: not in a situation that causes fear, pain or injury. Nutritional screening: No deficits noted. Advance Directives: Currently, there is no health care proxy. home support is adequate. Assessment: 10:58 General: see triage ntoe. pml 11:11 General: Appears in no apparent distress, comfortable, Behavior is cooperative. Pain: bcj Denies pain. Cardiovascular: Rhythm is atrial fibrillation with rapid ventricular response. Respiratory: Airway is patent Respiratory effort is even, unlabored, Respiratory pattern is regular. Derm: Skin is pink, warm & dry. 12:23 General: Appears in no apparent distress, comfortable, Behavior is cooperative. Pain: bcj Denies pain. Cardiovascular: Rhythm is atrial fibrillation with rapid ventricular response. Respiratory: No deficits noted. Derm: Skin is pink, warm & dry. 13:07 General: Appears in no apparent distress, comfortable, Behavior is cooperative. Pain: bcj Denies pain. Cardiovascular: Rhythm is atrial fibrillation with rapid ventricular response Chest pain is denied. Respiratory: Airway is patent Respiratory effort is even, unlabored, Respiratory pattern is regular. Derm: Skin is pink, warm & dry. 14:08 General: Appears in no apparent distress, comfortable, Behavior is cooperative. Pain: bcj Denies pain. Cardiovascular: Rhythm is atrial fibrillation with rapid ventricular response. Derm: Skin is pink, warm & dry. 15:16 General: Appears in no apparent distress, comfortable, Behavior is appropriate for age, jmb cooperative, Patient sitting on stretcher reading book. NO voiced complaints at this time. . Pain: Denies pain. Neurological: Level of Consciousness is awake, alert, obeys commands, Oriented to person, place, time, Director Of Partner Marketing are equal bilaterally Speech is normal, Facial symmetry appears normal, Facial symmetry: tongue is midline. Cardiovascular: Capillary refill < 3 seconds Heart tones present Pulses are all present. Rhythm is atrial fibrillation Chest pain is denied. Respiratory: Airway is patent Respiratory effort is even, unlabored, Respiratory pattern is regular, symmetrical, Breath sounds are diminished bilaterally. GI: Abdomen is obese, Bowel sounds present X 4 quads. Abd is soft and non tender X 4 quads. Derm: Skin is pink, warm & dry. 15:44 General: Appears in no apparent distress, comfortable, Behavior is appropriate for age, jmb cooperative, Patient laying on stretcher, reading book. NO voiced complaints at this time. . Neurological: Level of Consciousness is awake, alert, obeys commands, Oriented to person, place, time. Respiratory: Airway is patent Respiratory effort is even, unlabored, Respiratory pattern is regular, symmetrical. 16:09 General: Appears in no apparent distress, Behavior is appropriate for age, cooperative. jmb Neurological: Level of Consciousness is awake, alert, obeys commands, Oriented to person, place, time. Respiratory: Airway is patent Respiratory effort is even, unlabored, Respiratory pattern is regular, symmetrical. 16:48 General: Appears in no apparent distress, comfortable, Behavior is appropriate for age, jmb cooperative, Patient laying on stretcher in room, reading book. Patient denies pain or discomfort at this time. . Pain: Denies pain. Neurological: Level of Consciousness is awake, alert, obeys commands, Oriented to person, place, time. Respiratory: Airway is patent Respiratory effort is even, unlabored, Respiratory pattern is regular, symmetrical. Vital Signs: 10:49 BP 144 / 100; Pulse 170; Resp 20; Pulse Ox 98% on R/A; Weight 99.79 kg (R); Height 6 elp ft. 0 in. (182.88 cm) (R); Pain 0/10; 10:56 BP 128 / 95 (auto/); bcj 10:56 Pulse 162 MON; Pulse Ox 97% ; bcj 11:00 BP 140 / 101 (auto/); bcj 11:00 Pulse 155 MON; Pulse Ox 97% ; bcj 11:05 Temp 97.7(O); rs6 11:05 BP 118 / 80 (auto/); bcj 11:05 Pulse 155 MON; Pulse Ox 97% ; bcj 11:20 BP 117 / 89 (auto/); bcj 11:20 Pulse 154 MON; Pulse Ox 97% ; bcj 11:35 BP 116 / 94 (auto/); bcj 11:35 Pulse 156 MON; Pulse Ox 96% ; bcj 11:50 BP 128 / 69 (auto/); bcj 11:50 Pulse 161 MON; Pulse Ox 95% ; bcj 12:04 BP 157 / 80 (auto/); bcj 12:04 Pulse 145 MON; Pulse Ox 92% ; bcj 12:05 BP 128 / 69; Pulse 154; bcj 12:10 BP 157 / 72 (auto/); bcj 12:10 Pulse 129 MON; Pulse Ox 95% ; bcj 12:16 BP 160 / 98 (auto/); bcj 12:16 Pulse 120 MON; Pulse Ox 94% ; bcj 12:20 BP 147 / 85; Pulse 116; bcj 12:21 BP 147 / 85 (auto/); bcj 12:21 Pulse 119 MON; Pulse Ox 96% ; bcj 12:31 BP 135 / 91 (auto/); bcj 12:31 Pulse 109 MON; Pulse Ox 97% ; bcj 12:36 BP 145 / 83 (auto/); bcj 12:36 Pulse 106 MON; Pulse Ox 95% ; bcj 12:37 BP 135 / 91; Pulse 105; bcj 12:41 BP 141 / 75 (auto/); bcj 12:41 Pulse 110 MON; Pulse Ox 95% ; bcj 12:46 BP 162 / 79 (auto/); bcj 12:46 Pulse 102 MON; Pulse Ox 96% ; bcj 12:51 BP 155 / 91 (auto/); bcj 12:51 Pulse 107 MON; Pulse Ox 96% ; bcj 12:56 BP 116 / 67 (auto/); bcj 12:56 Pulse 106 MON; Pulse Ox 95% ; bcj 13:01 BP 143 / 97 (auto/); bcj 13:01 Pulse 105 MON; Pulse Ox 96% ; bcj 13:06 BP 142 / 67 (auto/); bcj 13:06 Pulse 105 MON; Pulse Ox 95% ; bcj 13:11 BP 151 / 83 (auto/); bcj 13:11 Pulse 109 MON; Pulse Ox 94% ; bcj 13:16 BP 161 / 78 (auto/); bcj 13:16 Pulse 108 MON; Pulse Ox 93% ; bcj 13:21 BP 165 / 89 (auto/); bcj 13:21 Pulse 109 MON; Pulse Ox 94% ; bcj 13:26 BP 157 / 90 (auto/); bcj 13:26 Pulse 118 MON; Pulse Ox 95% ; bcj 13:31 BP 161 / 79 (auto/); bcj 13:31 Pulse 106 MON; Pulse Ox 94% ; bcj 13:36 BP 150 / 81 (auto/); bcj 13:36 Pulse 115 MON; Pulse Ox 95% ; bcj 13:41 BP 172 / 86 (auto/); bcj 13:41 Pulse 116 MON; Pulse Ox 96% ; bcj 13:46 BP 207 / 81 (auto/); bcj 13:46 Pulse 118 MON; Pulse Ox 96% ; bcj 13:51 BP 200 / 79 (auto/); bcj 13:51 Pulse 115 MON; Pulse Ox 95% ; bcj 13:56 BP 176 / 64 (auto/); bcj 13:56 Pulse 115 MON; Pulse Ox 96% ; bcj 14:01 BP 146 / 67 (auto/); bcj 14:01 Pulse 113 MON; Pulse Ox 96% ; bcj 14:06 BP 146 / 67 (auto/); bcj 14:06 Pulse 114 MON; Pulse Ox 96% ; bcj 14:11 BP 157 / 82 (auto/); jmb 14:11 Pulse 114 MON; Pulse Ox 94% ; jmb 14:16 BP 154 / 74 (auto/); jmb 14:16 Pulse 118 MON; Pulse Ox 95% ; jmb 14:21 BP 145 / 74 (auto/); jmb 14:21 Pulse 116 MON; Pulse Ox 95% ; jmb 14:26 BP 147 / 66 (auto/); jmb 14:26 Pulse 114 MON; Pulse Ox 96% ; jmb 14:31 BP 176 / 111 (auto/); jmb 14:33 Pulse 123 MON; Pulse Ox 96% ; jmb 14:36 BP 168 / 90 (auto/); jmb 14:36 Pulse 109 MON; Pulse Ox 96% ; jmb 14:40 Pulse 118 MON; Pulse Ox 94% ; jmb 14:41 BP 154 / 78 (auto/); jmb 14:46 BP 136 / 63 (auto/); jmb 14:46 Pulse 114 MON; Pulse Ox 94% ; jmb 14:51 BP 140 / 72 (auto/); jmb 14:51 Pulse 108 MON; Pulse Ox 94% ; jmb 14:56 BP 147 / 68 (auto/); jmb 14:56 Pulse 105 MON; Pulse Ox 94% ; jmb 15:01 BP 152 / 71 (auto/); jmb 15:01 Pulse 106 MON; Pulse Ox 95% ; jmb 15:06 BP 164 / 80 (auto/); jmb 15:06 Pulse 111 MON; Pulse Ox 95% ; jmb 15:11 BP 156 / 71 (auto/); jmb 15:11 Pulse 101 MON; Pulse Ox 96% ; jmb 15:16 BP 145 / 71 (auto/); jmb 15:16 Pulse 110 MON; Pulse Ox 95% ; jmb 15:21 BP 147 / 68 (auto/); jmb 15:21 Pulse 105 MON; Pulse Ox 95% ; jmb 15:26 BP 151 / 75 (auto/); jmb 15:26 Pulse 116 MON; Pulse Ox 95% ; jmb 15:31 BP 155 / 72 (auto/); jmb 15:31 Pulse 105 MON; Pulse Ox 96% ; jmb 15:36 BP 157 / 71 (auto/); jmb 15:36 Pulse 105 MON; Pulse Ox 95% ; jmb 15:41 BP 144 / 67 (auto/); jmb 15:41 Pulse 107 MON; Pulse Ox 95% ; jmb 15:46 BP 142 / 76 (auto/); jmb 15:46 Pulse 102 MON; Pulse Ox 96% ; jmb 15:51 BP 149 / 75 (auto/); jmb 15:51 Pulse 104 MON; Pulse Ox 95% ; jmb 15:56 BP 146 / 75 (auto/); jmb 15:56 Pulse 105 MON; Pulse Ox 95% ; jmb 16:01 BP 150 / 97 (auto/); jmb 16:01 Pulse 103 MON; Pulse Ox 96% ; jmb 16:06 BP 147 / 83 (auto/); jmb 16:06 Pulse 112 MON; Pulse Ox 96% ; jmb 16:11 BP 149 / 98 (auto/); jmb 16:11 Pulse 117 MON; Pulse Ox 96% ; jmb 16:16 BP 172 / 78 (auto/); jmb 16:16 Pulse 110 MON; Pulse Ox 96% ; jmb 16:21 BP 160 / 75 (auto/); jmb 16:21 Pulse 105 MON; Pulse Ox 95% ; jmb 16:26 BP 155 / 71 (auto/); jmb 16:26 Pulse 112 MON; Pulse Ox 96% ; jmb 16:31 Pulse 109 MON; Pulse Ox 96% ; dy 16:31 BP 164 / 83 (auto/); dy 10:49 Body Mass Index 29.84 (99.79 kg, 182.88 cm) elp Vitals: 10:49 Log In Time: May 31, 2016 at 10:46. RN notified that patient meets Red Flag elp criteria. 11:11 Refer to monitor trend for complete vital signs trends. [facility] ED Course: 10:49 Patient visited by Sandy Arevalo PCA. elp 10:49 Dennis is Private Physician. elp 10:49 Patient moved to Waiting elp 10:51 Patient visited by Sandy Arevalo PCA. elp 10:51 Patient moved to Pre RCE elp 10:52 Patient moved to 3 dy 10:53 Triage Initiated pml 10:56 No apparent distress. Resting quietly. Awaiting bed assignment. [facility] 10:56 IV is intact. [facility] 10:58 Patient visited by Jane Nick,BRITTANY. pml 11:04 Pt greeted and oriented to ED. Patient advised of names of staff involved in care, rs6 location of call walters, wait times and NPO status. Accompanied by Significant Other, Patient has correct armband on for positive identification. Placed in gown. Bed in low position. Call light in reach. 11:04 EKG done. (by ED staff). Reviewed by Lyle Bustamante MD. rs6 11:05 Accompanied by Side rails up X 1. quality assurance monitor body on. Pulse ox on. NIBP on. rs6 11:06 Patient visited by Armida Turner PCA. rs6 11:08 Jane Nick,RN is Primary Nurse. pml 11:11 No apparent distress. Resting quietly. Awaiting ED physician evaluation. bcj 11:11 The patient / caregiver is instructed regarding the plan of care and ED course. bcj 11:11 Inserted saline lock: 20 gauge in right antecubital area. Labs drawn. (by ED staff). bcj Sent per order to lab. 11:14 Patient visited by James Jay, BRITTANY. bcj 11:24 Lyle Bustamante MD is Attending Physician. pc 11:37 Patient visited by Lyle Bustamante MD. pc 11:51 CIP Sent. bcj 11:51 Troponin Sent. bcj 11:51 MED Profile Sent. bcj 11:51 CBC with Diff Sent. bcj 12:21 [facility] Payment Agreement was scanned into Jini and attached to record. jp5 12:26 Patient visited by James Jay RN. bcj 12:29 Nikki Marin is Hospitalizing Provider. pc 12:37 Patient visited by James Jay RN. bcj 13:10 Patient visited by James Jay RN. bcj 13:11 No apparent distress. Resting quietly. Awaiting bed assignment. bcj 13:11 IV is intact. bcj 14:10 Patient visited by James Jay RN. bcj 15:17 Patient visited by Tim Kapadia RN. jmb 15:18 Patient moved to Admit Hold dy 15:44 Patient visited by Tim Kapadia RN. jmb 16:11 Patient visited by Tim Kapadia RN. jmb 16:49 Patient visited by Tim Kapadia RN. jmb 16:51 Patient moved to 20 dy 17:20 Patient moved to Admit Hold dy 19:05 Primary Nurse role handed off by Jane Nick RN jmb 23:36 No procedures done that require assistance. sls1 Administered Medications: 12:13 Drug: Metoprolol 5 mg [metoprolol 5 mg/5 mL intravenous solution (5 mL)] Route: IVP; bcj Site: right antecubital; 12:13 Drug: Digoxin 0.5 mg [digoxin 250 mcg/mL injection solution (2 mL)] Route: IVP; Site: bcj right antecubital; 12:26 Drug: Metoprolol 5 mg [metoprolol 5 mg/5 mL intravenous solution (5 mL)] Route: IVP; bcj Site: right antecubital; 12:36 Drug: Metoprolol 5 mg [metoprolol 5 mg/5 mL intravenous solution (5 mL)] Route: IVP; j Site: right antecubital; Order Results: Lab Order: CBC with Diff; SPEC'M 05/31/16 11:07 Test: WHITE BLOOD COUNT; Value: 10.3; Range: 4.0-10.0; Abnormal: Above high normal; Units: K/mm3; Status: F Test: RED BLOOD COUNT; Value: 5.32; Range: 4.00-5.40; Units: M/mm3; Status: F Test: HEMOGLOBIN; Value: 15.2; Range: 12.0-16.0; Units: g/dl; Status: F Test: HEMATOCRIT; Value: 46.6; Range: 36.0-47.0; Units: %; Status: F Test: MEAN CORPUSCULAR VOLUME; Value: 87.7; Range: 80.0-96.0; Units: fl; Status: F Test: MEAN CORPUSCULAR HEMOGLOBIN; Value: 28.5; Range: 27.0-33.0; Units: pg; Status: F Test: MEAN CORPUSCULAR HGB CONC; Value: 32.5; Range: 32.0-36.5; Units: g/dl; Status: F Test: RED CELL DISTRIBUTION WIDTH; Value: 13.7; Range: 11.5-14.5; Units: %; Status: F Test: PLATELET COUNT, AUTOMATED; Value: 342; Range: 150-450; Units: k/mm3; Status: F Test: NEUTROPHILS %; Value: 79.2; Range: 36.0-66.0; Abnormal: Above high normal; Units: %; Status: F Test: LYMPH %; Value: 14.0; Range: 24.0-44.0; Abnormal: Below low normal; Units: %; Status: F Test: MONO %; Value: 4.2; Range: 0.0-5.0; Units: %; Status: F Test: EOS %; Value: 0.8; Range: 0.0-3.0; Units: %; Status: F Test: BASO %; Value: 0.5; Range: 0.0-1.0; Units: %; Status: F Test: LARGE UNSTAINED CELL %; Value: 1.3; Range: 0.0-4.0; Units: %; Status: F Test: NEUTROPHILS #; Value: 8.1; Range: 1.8-7.7; Abnormal: Above high normal; Units: K/mm3; Status: F Test: LYMPH #; Value: 1.4; Range: 1.5-4.5; Abnormal: Below low normal; Units: K/mm3; Status: F Test: MONO #; Value: 0.4; Range: 0.0-0.8; Units: K/mm3; Status: F Test: EOS #; Value: 0.1; Range: 0.0-0.50; Units: K/mm3; Status: F Test: BASO #; Value: 0.0; Range: 0.0-0.2; Units: K/mm3; Status: F Test: LARGE UNSTAINED CELL #; Value: 0.1; Range: 0.0-0.4; Units: K/mm3; Status: F Lab Order: MED Profile; SPEC'M 05/31/16 11:07 Test: GLUCOSE, FASTING; Value: 420; Range: 80-110; Abnormal: Above upper panic limits; Units: MG/DL; Status: F Test: BLOOD UREA NITROGEN; Value: 24; Range: 7-18; Abnormal: Above high normal; Units: MG/DL; Status: F Test: CREATININE FOR GFR; Value: 1.16; Range: 0.55-1.02; Abnormal: Above high normal; Units: MG/DL; Status: F Test: GLOMERULAR FILTRATION RATE; Value: 49.9; Range: >45; Status: F Test: SODIUM LEVEL; Value: 138; Range: 136-145; Units: MEQ/L; Status: F Test: POTASSIUM SERUM; Value: 4.8; Range: 3.5-5.1; Units: MEQ/L; Status: F Test: CHLORIDE LEVEL; Value: 101; Range: 98-107; Units: MEQ/L; Status: F Test: CARBON DIOXIDE LEVEL; Value: 25; Range: 21-32; Units: MEQ/L; Status: F Test: ANION GAP; Value: 12; Range: 8-16; Units: MEQ/L; Status: F Test: CALCIUM LEVEL; Value: 8.5; Range: 8.8-10.2; Abnormal: Below low normal; Units: MG/DL; Status: F Test Note: ; Units are mL/min/1.73 m2 Chronic Kidney Disease Staging per NKF: Stage I & II GFR >=60 Normal to Mildly Decreased Stage III GFR 30-59 Moderately Decreased Stage IV GFR 15-29 Severely Decreased Stage V GFR <15 Very Little GFR Left ESRD GFR <15 on BEAVER TRAPPER Lab Order: Venous Blood Gas (large pea green tube on ice); SPEC'M 05/31/16 12:10 Test: VENOUS PH; Value: 7.381; Range: 7.330-7.430; Units: UNITS; Status: F Test: VENOUS PARTIAL PRESSURE CO2; Value: 44.5; Range: 38.0-50.0; Units: mmHg; Status: F Test: VENOUS PARTIAL PRESSURE O2; Value: 42.5; Range: 30.0-50.0; Units: mmHg; Status: F Test: VENOUS TOTAL CO2; Value: 27.2; Range: 24.0-28.0; Units: MEQ/L; Status: F Test: VENOUS HCO3; Value: 25.8; Range: 23.0-27.0; Units: MEQ/L; Status: F Test: VENOUS BASE EXCESS; Value: 0.3; Range: -2.0-2.0; Status: F Test: VENOUS STANDARD HCO3; Value: 24.3; Units: MEQ/L; Status: F Test: VENOUS O2 SATURATION; Value: 78.6; Range: 60.0-80.0; Units: %; Status: F Lab Order: Troponin; SPEC'M 05/31/16 11:07 Test: TROPONIN I; Value: 0.04; Range: < 0.10; Units: NG/ML; Status: F Test Note: ; Troponin I Reference Interval for Betab[place] LOCI: 99th Percentile= 0.00-0.045 ng/ml Risk Stratification: <= 0.10 ng/ml Decreased Risk for Adverse Clinical Events. 0.10-1.50 ng/ml Increased Risk for Adverse Clinical Events. Evaluation of additional criterion and/or repeat testing in 2-6 hours is suggested to rule out myocardial damage. >= 1.50 ng/ml Indicative of Myocardial Injury. Lab Order: CIP; SPEC'M 05/31/16 11:07 Test: CPK CREATINE PHOSPHOKINASE; Value: 83; Range: 26-192; Units: U/L; Status: F Test: CK-MB VALUE MASS; Value: 2.1; Range: 0.0-3.6; Units: NG/ML; Status: F Test: MB/CK RELATIVE INDEX; Value: 2.53; Range: < OR =4; Status: F Test Note: ; DIAGNOSIS CRITERIA MMB ng/ml Relative Index (RI) NON-AMI < or = 5 N/A NOLAN ZONE > 5 < or = 4 AMI > 5 > 4 Lab Order: CARDIAC MARKER PANEL; [facility] 05/31/16 17:52 Test: CPK CREATINE PHOSPHOKINASE; Value: 55; Range: 26-192; Units: U/L; Status: F Test: CK-MB VALUE MASS; Value: 1.3; Range: 0.0-3.6; Units: NG/ML; Status: F Test: MB/CK RELATIVE INDEX; Value: 2.36; Range: < OR =4; Status: F Test: TROPONIN I; Value: 0.06; Range: < 0.10; Abnormal: Delta; Units: NG/ML; Status: F Test Note: ; DIAGNOSIS CRITERIA MMB ng/ml Relative Index (RI) NON-AMI < or = 5 N/A NOLAN ZONE > 5 < or = 4 AMI > 5 > 4 Lab Order: Fingerstick Blood Sugar; [facility] 05/31/16 18:04 Test: BEDSIDE GLUCOSE; Value: 288; Range: 80-115; Abnormal: Above high normal; Units: MG/DL; Status: F Lab Order: Fingerstick Blood Sugar; [facility] 05/31/16 20:23 Test: BEDSIDE GLUCOSE; Value: 235; Range: 80-115; Abnormal: Above high normal; Units: MG/DL; Status: F Outcome: 12:29 Decision to Hospitalize by Provider. 23:35 Discharge Assessment: Patient awake, alert and oriented x 3. No cognitive and/or sls1 functional deficits noted. Patient verbalized understanding of disposition instructions. patient administered narcotics - no. The following High Risk Discharge criteria are identified: None. Admitted to PCU accompanied by nurse, accompanied by tech, family with patient, via stretcher, on monitor, with chart. Condition: stable. CT Study completed. Property :Personal belongings accompany Pt. 23:36 Patient left the ED. sls1 Signatures: Lyle Bustamante MD MD pc Johnson, Bruce, RN RN Rolando Bloom, RN Mercy Brunner RN RN sls1 Jane NickRN RN Sandy Hernandez, HAND DRY CLEANER HAND DRY CLEANER elp Tim Kapadia,RN RN Armida Cool, HAND DRY CLEANER HAND DRY CLEANER rs6 Aye Jha jp5 Chart Complete MTDD
--- NOTE | 2016-06-03 00:37 | EDDOCDS ---
Physician Documentation [facility] Name: Oly Jolly Age: 66 yrs Sex: Female : 1950 Arrival Date: 05/31/2016 Time: 10:47 Bed Admit Hold Private MD: Dennis Disposition: 05/31 12:26 Critical Care:. pc Disposition: 05/31/16 12:29 Hospitalization ordered by Nikki Marin for Inpatient Admission. Preliminary diagnosis are Persistent atrial fibrillation, Type 2 diabetes mellitus with hyperglycemia. - Bed requested for PCU. - Status is Inpatient Admission. sls1 - Condition is Stable. - Problem is an ongoing problem. - Symptoms have improved. HPI: 12:06 This 66 yrs old Female presents to ER via Walkin/Carried/Asstd with pc complaints of Palpitations. 12:06 The history is obtained from the patient, the patient's spouse. She was diagnosed with pc new onset AFib 3 days ago and was to have electrocardioversion 2 days ago but it was not performed for an as of yet unknown reason: the patient did not refuse and believes Dr. Mccrary may have decided against it. She says she has been using her metoprolol every 8-10 hours because she becomes tachycardic at 8 hours or less, up into the 170's. She denies chest pain but is SOBOE. Historical: - Allergies: no known allergies; - Home Meds: 1. metoprolol tartrate 50 mg Oral tab 1 tab 2 times per day 2. Eliquis 5 mg oral tab 1 tab 2 times per day - PMHx: Type 2 DM - refused treatment, High Cholesterol - refused treatment; Atrial Fib; - PSHx: Appendectomy; Hysterectomy; Tonsillectomy; x 3; - The history from nurses notes was reviewed: and I agree with what is documented. - Social history: Smoking status: Patient states former smoker of tobacco. No barriers to communication noted, The patient speaks fluent B[place], Speaks appropriately for age. - Family history: Not pertinent. - : The pt / caregiver states he / she is on anticoagulants: Eliquis Home medication list is obtained from family members. - Hospitalizations: : No recent hospitalization is reported. - Exposure Risk Screening:: None identified. - Immunization history:: All immunizations up-to-date. - Social history:: the patient is a non-smoker, the patient does not drink alcohol. ROS: 12:26 All systems are negative except as listed. pc Exam: 12:26 General Appearance: no acute distress, alert. pc 12:26 EENT: normal eye inspection, ears, nose and throat normal, pharynx normal, mucous membranes moist 12:26 Neck: The exam reveals no acute abnormalities. ROM is normal and painless. No nuchal rigidity is noted.. 12:26 Respiratory: no respiratory distress, normal breath sounds. 12:26 CVS: normal S1 and S2, no murmurs, strong peripheral pulses, normal capillary refill, the patient is tachycardic, at 165 bpm, irregularly irregular 12:26 Abdomen: soft, non-tender, no organomegaly, normal bowel sounds. 12:26 Back: normal inspection. 12:26 Skin: skin color is normal, warm, dry. 12:26 Extremities: The extremities have a grossly normal appearance, are non-tender, without acute ROM abnormalities. 12:26 Neuro: oriented x 3, cranial nerves normal as tested, no motor deficits, no sensory deficits, normal gait. 12:26 Psych: normal mood. Vital Signs: 10:49 BP 144 / 100; Pulse 170; Resp 20; Pulse Ox 98% on R/A; Weight 99.79 kg / 220 lbs (R); elp Height 6 ft. 0 in. (182.88 cm) (R); Pain 0/10; 10:56 BP 128 / 95 (auto/); bcj 10:56 Pulse 162 MON; Pulse Ox 97% ; bcj 11:00 BP 140 / 101 (auto/); bcj 11:00 Pulse 155 MON; Pulse Ox 97% ; bcj 11:05 Temp 97.7(O); rs6 11:05 BP 118 / 80 (auto/); bcj 11:05 Pulse 155 MON; Pulse Ox 97% ; bcj 11:20 BP 117 / 89 (auto/); bcj 11:20 Pulse 154 MON; Pulse Ox 97% ; bcj 11:35 BP 116 / 94 (auto/); bcj 11:35 Pulse 156 MON; Pulse Ox 96% ; bcj 11:50 BP 128 / 69 (auto/); bcj 11:50 Pulse 161 MON; Pulse Ox 95% ; bcj 12:04 BP 157 / 80 (auto/); bcj 12:04 Pulse 145 MON; Pulse Ox 92% ; bcj 12:05 BP 128 / 69; Pulse 154; bcj 12:10 BP 157 / 72 (auto/); bcj 12:10 Pulse 129 MON; Pulse Ox 95% ; bcj 12:16 BP 160 / 98 (auto/); bcj 12:16 Pulse 120 MON; Pulse Ox 94% ; bcj 12:20 BP 147 / 85; Pulse 116; bcj 12:21 BP 147 / 85 (auto/); bcj 12:21 Pulse 119 MON; Pulse Ox 96% ; bcj 12:31 BP 135 / 91 (auto/); bcj 12:31 Pulse 109 MON; Pulse Ox 97% ; bcj 12:36 BP 145 / 83 (auto/); bcj 12:36 Pulse 106 MON; Pulse Ox 95% ; bcj 12:37 BP 135 / 91; Pulse 105; bcj 12:41 BP 141 / 75 (auto/); bcj 12:41 Pulse 110 MON; Pulse Ox 95% ; bcj 12:46 BP 162 / 79 (auto/); bcj 12:46 Pulse 102 MON; Pulse Ox 96% ; bcj 12:51 BP 155 / 91 (auto/); bcj 12:51 Pulse 107 MON; Pulse Ox 96% ; bcj 12:56 BP 116 / 67 (auto/); bcj 12:56 Pulse 106 MON; Pulse Ox 95% ; bcj 13:01 BP 143 / 97 (auto/); bcj 13:01 Pulse 105 MON; Pulse Ox 96% ; bcj 13:06 BP 142 / 67 (auto/); bcj 13:06 Pulse 105 MON; Pulse Ox 95% ; bcj 13:11 BP 151 / 83 (auto/); bcj 13:11 Pulse 109 MON; Pulse Ox 94% ; bcj 13:16 BP 161 / 78 (auto/); bcj 13:16 Pulse 108 MON; Pulse Ox 93% ; bcj 13:21 BP 165 / 89 (auto/); bcj 13:21 Pulse 109 MON; Pulse Ox 94% ; bcj 13:26 BP 157 / 90 (auto/); bcj 13:26 Pulse 118 MON; Pulse Ox 95% ; bcj 13:31 BP 161 / 79 (auto/); bcj 13:31 Pulse 106 MON; Pulse Ox 94% ; bcj 13:36 BP 150 / 81 (auto/); bcj 13:36 Pulse 115 MON; Pulse Ox 95% ; bcj 13:41 BP 172 / 86 (auto/); bcj 13:41 Pulse 116 MON; Pulse Ox 96% ; bcj 13:46 BP 207 / 81 (auto/); bcj 13:46 Pulse 118 MON; Pulse Ox 96% ; bcj 13:51 BP 200 / 79 (auto/); bcj 13:51 Pulse 115 MON; Pulse Ox 95% ; bcj 13:56 BP 176 / 64 (auto/); bcj 13:56 Pulse 115 MON; Pulse Ox 96% ; bcj 14:01 BP 146 / 67 (auto/); bcj 14:01 Pulse 113 MON; Pulse Ox 96% ; bcj 14:06 BP 146 / 67 (auto/); bcj 14:06 Pulse 114 MON; Pulse Ox 96% ; bcj 14:11 BP 157 / 82 (auto/); jmb 14:11 Pulse 114 MON; Pulse Ox 94% ; jmb 14:16 BP 154 / 74 (auto/); jmb 14:16 Pulse 118 MON; Pulse Ox 95% ; jmb 14:21 BP 145 / 74 (auto/); jmb 14:21 Pulse 116 MON; Pulse Ox 95% ; jmb 14:26 BP 147 / 66 (auto/); jmb 14:26 Pulse 114 MON; Pulse Ox 96% ; jmb 14:31 BP 176 / 111 (auto/); jmb 14:33 Pulse 123 MON; Pulse Ox 96% ; jmb 14:36 BP 168 / 90 (auto/); jmb 14:36 Pulse 109 MON; Pulse Ox 96% ; jmb 14:40 Pulse 118 MON; Pulse Ox 94% ; jmb 14:41 BP 154 / 78 (auto/); jmb 14:46 BP 136 / 63 (auto/); jmb 14:46 Pulse 114 MON; Pulse Ox 94% ; jmb 14:51 BP 140 / 72 (auto/); jmb 14:51 Pulse 108 MON; Pulse Ox 94% ; jmb 14:56 BP 147 / 68 (auto/); jmb 14:56 Pulse 105 MON; Pulse Ox 94% ; jmb 15:01 BP 152 / 71 (auto/); jmb 15:01 Pulse 106 MON; Pulse Ox 95% ; jmb 15:06 BP 164 / 80 (auto/); jmb 15:06 Pulse 111 MON; Pulse Ox 95% ; jmb 15:11 BP 156 / 71 (auto/); jmb 15:11 Pulse 101 MON; Pulse Ox 96% ; jmb 15:16 BP 145 / 71 (auto/); jmb 15:16 Pulse 110 MON; Pulse Ox 95% ; jmb 15:21 BP 147 / 68 (auto/); jmb 15:21 Pulse 105 MON; Pulse Ox 95% ; jmb 15:26 BP 151 / 75 (auto/); jmb 15:26 Pulse 116 MON; Pulse Ox 95% ; jmb 15:31 BP 155 / 72 (auto/); jmb 15:31 Pulse 105 MON; Pulse Ox 96% ; jmb 15:36 BP 157 / 71 (auto/); jmb 15:36 Pulse 105 MON; Pulse Ox 95% ; jmb 15:41 BP 144 / 67 (auto/); jmb 15:41 Pulse 107 MON; Pulse Ox 95% ; jmb 15:46 BP 142 / 76 (auto/); jmb 15:46 Pulse 102 MON; Pulse Ox 96% ; jmb 15:51 BP 149 / 75 (auto/); jmb 15:51 Pulse 104 MON; Pulse Ox 95% ; jmb 15:56 BP 146 / 75 (auto/); jmb 15:56 Pulse 105 MON; Pulse Ox 95% ; jmb 16:01 BP 150 / 97 (auto/); jmb 16:01 Pulse 103 MON; Pulse Ox 96% ; jmb 16:06 BP 147 / 83 (auto/); jmb 16:06 Pulse 112 MON; Pulse Ox 96% ; jmb 16:11 BP 149 / 98 (auto/); jmb 16:11 Pulse 117 MON; Pulse Ox 96% ; jmb 16:16 BP 172 / 78 (auto/); jmb 16:16 Pulse 110 MON; Pulse Ox 96% ; jmb 16:21 BP 160 / 75 (auto/); jmb 16:21 Pulse 105 MON; Pulse Ox 95% ; jmb 16:26 BP 155 / 71 (auto/); jmb 16:26 Pulse 112 MON; Pulse Ox 96% ; jmb 16:31 Pulse 109 MON; Pulse Ox 96% ; dy 16:31 BP 164 / 83 (auto/); dy 10:49 Body Mass Index 29.84 (99.79 kg, 182.88 cm) elp MDM: 11:00 ECG WITH READING ER PHYS+CARDIAG ordered. EDMS 11:49 IV Saline Lock ordered. pc 11:49 Sheet Metal Helper/Pulse Ox/q 30 min VS ordered. pc 11:49 Metoprolol 5 mg IVP every 5 minutes; Hold for SBP < 100 or HR < 60. x3 ordered. pc 11:49 Digoxin 0.5 mg IVP once ordered. pc 11:50 CBC with Diff Ordered. EDMS 11:50 MED Profile Ordered. EDMS 11:50 Venous Blood Gas (large pea green tube on ice) Ordered. EDMS 11:50 Troponin Ordered. EDMS 11:50 CIP Ordered. EDMS 11:50 BED REQUEST+ADM ordered. EDMS 12:21 [facility] Payment Agreement was scanned into [employer] and attached to record. jp5 12:21 Financial registration complete. jp5 12:24 CARDIAC MARKER PANEL Ordered. EDMS 12:25 PHYSICAL THERAPY EVAL & TREAT ordered. EDMS 12:26 Admission / Observation Status ordered. EDMS 12:26 ELECTROCARDIOGRAM ADULT ordered. EDMS 12:26 Differential Diagnosis: AFib with RVR, failed out-patient therapy. Plan: d/w pc Cardiology. Data reviewed: old medical records, vital signs, nurses notes, EKG(s), lab test results. Test interpretation: EKG. 12:26 Test interpretation: LAB - all labs as ordered have been reviewed, interpreted and pc considered in the overall management of the clinical presentation;. The patient has been re-examined and re-evaluated. The patient's symptoms have mildly improved after treatment. Physician consultation: Dr. David Chowdhury regarding patient's condition, and he advises the medications ordered and advises admission, requesting Hospitalist admission. Disposition: The historical points, examination findings, and any diagnostic results supporting the provided diagnosis, were discussed with the patient or legal guardian. The need for further work-up and/or treatment in the hospital was explained. 12:26 Physician consultation: Dr. Nikki Marin was contacted at 12:29, regarding admission, pc and will see patient in ED, shortly. 12:28 CONSISTENT CARBOHYDRATES ordered. EDMS 12:28 URINALYSIS Ordered. EDMS 12:28 MICROALBUMIN RANDOM Ordered. EDMS 16:50 ECHOCARD,DOPPLER/COLOR FLOW ordered. EDMS 18:16 Fingerstick Blood Sugar Ordered. EDMS 19:31 COMPLETE COMPHRENSIVE METABOLI Ordered. EDMS 19:31 MAGNESIUM LEVEL Ordered. EDMS 19:31 THYROID STIMULATING HORMONE Ordered. EDMS 19:31 COMPLETE BLOOD COUNT Ordered. EDMS 19:31 CARDIAC MARKER PANEL Ordered. EDMS 19:31 CARDIAC MARKER PANEL Ordered. EDMS 19:31 DIGOXIN LEVEL Ordered. EDMS 19:31 HEMOGLOBIN A1C Ordered. EDMS 20:32 Fingerstick Blood Sugar Ordered. EDMS 21:18 CARDIAC RISK PROFILE Ordered. EDMS EC:26 Rate is 168 beats/min. Rhythm is irregularly irregular, A fib. QRS [place] is Normal. MO pc interval is normal. QRS interval is normal. QT interval is normal. No Q waves. T waves are Normal. No ST changes noted. Clinical impression: Atrial Fibrillation with RVR. Administered Medications: 12:13 Drug: Metoprolol 5 mg [metoprolol 5 mg/5 mL intravenous solution (5 mL)] Route: IVP; [facility] Site: right antecubital; 12:13 Drug: Digoxin 0.5 mg [digoxin 250 mcg/mL injection solution (2 mL)] Route: IVP; Site: bcj right antecubital; 12:26 Drug: Metoprolol 5 mg [metoprolol 5 mg/5 mL intravenous solution (5 mL)] Route: IVP; j Site: right antecubital; 12:36 Drug: Metoprolol 5 mg [metoprolol 5 mg/5 mL intravenous solution (5 mL)] Route: IVP; [facility] Site: right antecubital; Critical Care Time: 12:26 Critical care time: Bedside Care: 20 minutes, Consultation: 20 minutes, Family pc Intervention: 10 minutes. Total time: 50 minutes Signatures: Dispatcher [employer] EDMS Lyle Bustamante MD MD pc Johnson, Bruce, RN RN bcj [facility], BRITTANY Parks RN, Shannon RN BRITTANY sls1 Jane NickRN Aye López jp5 The chart was reviewed and I authenticate all verbal orders and agree with the evaluation and treatment provided.Corrections: (The following items were deleted from the chart) 20:45 20:41 PROTHROMBIN TIME PROFILE\E\INR ordered. EDMS EDMS 21:18 19:31 CARDIAC RISK PROFILE ordered. EDMS EDMS Attachments: 12:21 [facility] Payment Agreement [email or web address] [facility]
== END 2016-06-02 15:33 | disposition home or self-care (01) | DRG 309 ==
LOC: M ED 10:47 → M ED INP 12:17 → OBSVTOIN 12:17 → M PCU 23:31 → INTOOBSV 06-01 10:40 → OBSVTOIN 06-01 10:40
PROVIDERS: ADMIT General Practice; ATTEND Hospitalist
DX: I48.91 Unspecified atrial fibrillation (principal); N17.9 Acute kidney failure, unspecified; E66.01 Morbid (severe) obesity due to excess calories; I11.9 Hypertensive heart disease without heart failure; E11.9 Type 2 diabetes mellitus without complications; Z79.899 Other long term (current) drug therapy; Z79.82 Long term (current) use of aspirin; Z91.19 Patient's noncompliance with other medical treatment and regimen; E78.00 Pure hypercholesterolemia, unspecified; Z87.891 Personal history of nicotine dependence

== ENCOUNTER → 2016-12-29 | Outpatient (CLI) | payer OTHER ==
[~2016-12-29] MED LIST: ACCUKIT13 XX; ACCUKIT15 XX; ASPI1TAB PO; B-D1MIS3 XX; DIGO0.12 PO; ELIQ5TAB PO; GLUC4CHW PO; INSUDET SC; INSUHUMDS SC; MAG400TA PO; METO50TA7 PO; VITMTA PO
[2016-12-29 12:09] LABS: ALBUMIN 3.9 GM/DL (3.2-5.2); ALBUMIN/GLOBULIN RATIO 1.39 (1.00-1.93); ALKALINE PHOSPHATASE 63 U/L (45-117); ALT/SGPT 18 U/L (12-78); ANION GAP 8 MEQ/L (8-16); AST/SGOT 10 U/L (15-37); BILIRUBIN,TOTAL 1.2 MG/DL (0.2-1.0); BLOOD UREA NITROGEN 22 MG/DL (7-18); CALCIUM LEVEL 8.7 MG/DL (8.8-10.2); CARBON DIOXIDE LEVEL 29 MEQ/L (21-32); CHLORIDE LEVEL 107 MEQ/L (98-107); CHOLESTEROL LEVEL 183 MG/DL (<200); CREATININE FOR GFR 0.84 MG/DL (0.55-1.02); GLOMERULAR FILTRATION RATE > 60.0 (>45); GLUCOSE, FASTING 137 MG/DL (80-110); MAGNESIUM LEVEL 2.1 MG/DL (1.8-2.4); POTASSIUM SERUM 4.5 MEQ/L (3.5-5.1); SODIUM LEVEL 144 MEQ/L (136-145); TOTAL PROTEIN 6.7 GM/DL (6.4-8.2); TRIGLYCERIDES LEVEL 71 MG/DL (<150)
== END ==
LOC: M LAB 10:47
PROVIDERS: ATTEND Family Medicine
DX: E11.65 Type 2 diabetes mellitus with hyperglycemia (principal)

== ENCOUNTER 2018-11-25 09:20 | Emergency (ER) | payer MEDICARE ==
[~2018-11-25] VITALS: Ht 182.9 cm; Wt 95.5 kg
[~2018-11-25 09:20] MED LIST changes: -ASPI1TAB PO; +ASPI81TA26 PO; -GLUC4CHW PO; +GLUC4CHW19 PO
[2018-11-25] MEDS ORDERED: MAGN100T PO (09:29)
[2018-11-25] MEDS ORDERED: ADACEL/BOOSTRIX VACCINE (DIPHTH/PERTUSS/ACELL/TETANUS)0.5ML SYR (90715) IM ONE (10:15)
[2018-11-25] MEDS ORDERED: DERMABOND TOPICAL SKIN ADHESIVE TOP ONE (10:30)
--- NOTE | 2018-11-25 11:03 | REP ---
Maxillofacial CT study without contrast: History: Tenderness to palpation inferior orbital margin. Laceration inferior orbital region. CT findings: There is right malar and right pre-septal periorbital soft tissue swelling. A few air bubbles are seen lateral to the anterior aspect of the zygomatic arch on the right in the superficial soft tissues. No maxillary fracture is seen. Frontal sinuses are clear. Maxillary sinuses are normally aerated. There is a tiny mucous retention cyst anteriorly and inferiorly in the right maxillary sinus. Orbital margins are intact. No blowout fracture is seen. Bony nasal septum deviates to the right with a septal spur. Benign dural calcification is seen along the dorsal surface of the clivus. There is some vascular calcification in the distal internal carotid arteries. Impression: No facial fracture seen. Electronically Signed by Rocael Aleman MD 11/25/2018 12:36 P
--- NOTE | 2018-11-25 11:10 | REP ---
STERNUM: Two views of the sternum are performed. No definite fracture or intrinsic osseous pathology is seen. Sternal segments appear well aligned. IMPRESSION: No evidence of sternal fracture radiographically. Electronically Signed by García Quintero MD 11/26/2018 11:34 A
[2018-11-25] MEDS ORDERED: LIDOCAINE W/EPINEPHRINE 1% 20ML VIAL SC ONE (11:30)
[2018-11-25] MEDS ORDERED: KEFL500C17 PO (12:19)
--- NOTE | 2018-11-25 12:59 | REP ---
CT BRAIN WITHOUT CONTRAST: CT brain performed without IV contrast. There is mild atrophy. There is no midline shift or mass effect. Quintero-white differentiation is well maintained. There is no acute intracranial hemorrhage or extra-axial fluid collection. No skull fracture is seen. There are vascular calcifications in the carotid siphons. IMPRESSION: Mild atrophy and vascular calcifications. No acute intracranial hemorrhage or other acute intracranial finding. Electronically Signed by García Quintero MD 11/28/2018 01:02 P
[2018-11-25 13:52] LABS: BASO # 0.1 10^3/uL (0.0-0.2); BASO % 0.4 % (0.0-1.0); EOS # 0.1 10^3/uL (0.0-0.50); HEMATOCRIT 47.3 % (36.0-47.0); HEMOGLOBIN 15.1 g/dl (12.0-15.5); LYMPH # 1.9 10^3/uL (1.5-4.5); LYMPH % 13.9 % (24.0-44.0); MEAN CORPUSCULAR HEMOGLOBIN 28.7 pg (27.0-33.0); MEAN CORPUSCULAR HGB CONC 31.9 g/dl (32.0-36.5); MEAN CORPUSCULAR VOLUME 89.8 fl (80.0-96.0); MONO % 7.6 % (0.0-5.0); NEUTROPHILS # 10.3 10^3/uL (1.8-7.7); NEUTROPHILS % 76.7 % (36.0-66.0); PLATELET COUNT, AUTOMATED 286 10^3/uL (150-450); RED BLOOD COUNT 5.27 10^6/uL (4.00-5.40); WHITE BLOOD COUNT 13.4 10^3/uL (4.0-10.0)
[2018-11-25 14:19] LABS: BLOOD UREA NITROGEN 20 MG/DL (7-18); CALCIUM LEVEL 9.1 MG/DL (8.8-10.2); CARBON DIOXIDE LEVEL 30 MEQ/L (21-32); CHLORIDE LEVEL 105 MEQ/L (98-107); CK-MB VALUE MASS 1.7 NG/ML (<3.6); CPK CREATINE PHOSPHOKINASE 63 U/L (26-192); CREATININE FOR GFR 0.79 MG/DL (0.55-1.30); GLOMERULAR FILTRATION RATE > 60.0 (>45); GLUCOSE, FASTING 113 MG/DL (70-100); POTASSIUM SERUM 3.7 MEQ/L (3.5-5.1); SODIUM LEVEL 142 MEQ/L (136-145); TROPONIN I < 0.02 NG/ML (< 0.10)
[2018-11-25] MEDS ORDERED: LISI10TA4 PO (15:00)
[2018-11-25] MEDS ORDERED: LOSA50TA88 PO (15:09)
[2018-11-25] MEDS ORDERED: TYLETAB14 PO (15:11)
[2018-11-25 15:31] VITALS: BP 195/95
--- NOTE | 2018-11-25 20:39 | ECGEPIP ---
[facility] - ED Test Date: 2018-11-25 Pat Name: GALO CAMERON Department: Room: - Gender: Female Review Manager: pmgabe : 1950 Requested By: VIKI Agee PA-C Order Number: [id number] Reading MD: Mary Curiel Measurements Intervals [place] Rate: 61 P: 61 [place]: 140 QRS: 58 QRSD: 87 T: 22 QT: 401 QTc: 405 Interpretive Statements SINUS RHYTHM WITH OCCASIONAL SUPRAVENTRICULAR PREMATURE COMPLEXES SHORT OH INTERVAL LOW QRS VOLTAGE IN PRECORDIAL LEADS SEPTAL MYOCARDIAL INFARCTION, PROBABLY OLD NONSPECIFIC ST T WAVE CHANGES DELAYED R WAVE PROGRESSION CW 06/01/16 - RATE DECREASED RHTYHM NOW SINUS Electronically Signed on 11-25-2018 20:39:42 EDT by Mary Curiel
== END 2018-11-25 15:26 | disposition home or self-care (01) ==
LOC: M ED 09:20
DX: S01.81XA Laceration without foreign body of other part of head, initial encounter (principal); S20.219A Contusion of unspecified front wall of thorax, initial encounter; S70.11XA Contusion of right thigh, initial encounter; W01.198A Fall on same level from slipping, tripping and stumbling with subsequent striking against other object, initial encounter; Y92.018 Other place in single-family (private) house as the place of occurrence of the external cause; Y93.K1 Activity, walking an animal; H11.31 Conjunctival hemorrhage, right eye; R03.0 Elevated blood-pressure reading, without diagnosis of hypertension; E11.9 Type 2 diabetes mellitus without complications; Z79.899 Other long term (current) drug therapy; Z79.4 Long term (current) use of insulin; Z87.891 Personal history of nicotine dependence

== ENCOUNTER → 2020-04-22 | Outpatient (CLI) | payer MEDICARE ==
[~2020-04-22] MED LIST changes: +KEFL500C17 PO; +LISI10TA4 PO; +LOSA50TA88 PO; +MAGN100T PO; +TYLETAB14 PO
== END ==
LOC: M LABSMTC 13:35
PROVIDERS: ATTEND Pediatrics
DX: Z20.828 Contact with and (suspected) exposure to other viral communicable diseases (principal)

== ENCOUNTER → 2020-12-23 | Outpatient (CLI) | payer MEDICARE ==
[~2020-12-23] MED LIST changes: -GLUC4CHW19 PO; +LISI10TA22 PO; -LISI10TA4 PO; +LOSA50TA28 PO; -LOSA50TA88 PO; -MAG400TA PO; +MAGN400T35 PO; +SFHGLU4TA PO
[2020-12-23 11:28] LABS: BASO # 0.1 10^3/uL (0.0-0.2); BASO % 0.5 % (0.0-1.0); EOS # 0.3 10^3/uL (0.0-0.5); EOS % 2.6 % (0.0-3.0); HEMATOCRIT 48.6 % (36.0-47.0); HEMOGLOBIN 15.3 g/dl (12.0-15.5); LYMPH # 1.1 10^3/uL (1.5-5.0); LYMPH % 11.4 % (24.0-44.0); MEAN CORPUSCULAR HEMOGLOBIN 27.7 pg (27.0-33.0); MEAN CORPUSCULAR HGB CONC 31.5 g/dl (32.0-36.5); MONO # 0.8 10^3/uL (0.0-0.8); MONO % 7.8 % (2.0-8.0); NEUTROPHILS # 7.6 10^3/uL (1.5-8.5); NEUTROPHILS % 77.3 % (36.0-66.0); PLATELET COUNT, AUTOMATED 383 10^3/uL (150-450); RED BLOOD COUNT 5.52 10^6/uL (4.00-5.40); WHITE BLOOD COUNT 9.8 10^3/uL (4.0-10.0)
[2020-12-23 12:07] LABS: ALBUMIN 3.7 GM/DL (3.2-5.2); ALT/SGPT 21 U/L (12-78); BILIRUBIN,TOTAL 0.9 MG/DL (0.2-1.0); BLOOD UREA NITROGEN 24 MG/DL (7-18); CALCIUM LEVEL 8.9 MG/DL (8.8-10.2); CARBON DIOXIDE LEVEL 28 MEQ/L (21-32); CHLORIDE LEVEL 105 MEQ/L (98-107); CHOLESTEROL LEVEL 206 MG/DL (<200); CHOLESTEROL RISK RATIO 3.551 (<5); FREE T4 0.79 NG/DL (0.76-1.46); GLOMERULAR FILTRATION RATE > 60.0 (>45); GLUCOSE, FASTING 284 MG/DL (70-100); HDL CHOLESTEROL 58 MG/DL (>40); LDL CHOLESTEROL 130 MG/DL (<100); NON-HDL-C 148 MG/DL; POTASSIUM SERUM 4.5 MEQ/L (3.5-5.1); SODIUM LEVEL 139 MEQ/L (136-145); TOTAL PROTEIN 6.8 GM/DL (6.4-8.2); TRIGLYCERIDES LEVEL 90 MG/DL (<150)
[2020-12-23 12:15] LABS: CREATININE, URINE 64.2 MG/DL; MAU/CREAT RATIO 376.9 MCG/MG (0.0-30.0)
[2020-12-23 12:20] LABS: HEMOGLOBIN A1c 9.9 %
== END ==
LOC: M LAB 10:47
PROVIDERS: ATTEND Family Medicine
DX: E11.65 Type 2 diabetes mellitus with hyperglycemia (principal); I48.0 Paroxysmal atrial fibrillation

== ENCOUNTER → 2021-03-31 | Outpatient (CLI) | payer MEDICARE ==
[~2021-03-31] MED LIST changes: -LOSA50TA28 PO; +LOSA50TA88 PO
[2021-03-31 16:19] LABS: ALBUMIN 3.6 GM/DL (3.2-5.2); ALT/SGPT 23 U/L (12-78); BILIRUBIN,TOTAL 0.9 MG/DL (0.2-1.0); BLOOD UREA NITROGEN 20 MG/DL (7-18); CALCIUM LEVEL 9.3 MG/DL (8.8-10.2); CARBON DIOXIDE LEVEL 28 MEQ/L (21-32); CHLORIDE LEVEL 109 MEQ/L (98-107); CREATININE FOR GFR 0.88 MG/DL (0.55-1.30); GLOMERULAR FILTRATION RATE > 60.0 (>45); GLUCOSE, FASTING 184 MG/DL (70-100); POTASSIUM SERUM 4.2 MEQ/L (3.5-5.1); SODIUM LEVEL 143 MEQ/L (136-145); TOTAL PROTEIN 6.9 GM/DL (6.4-8.2)
[2021-03-31 16:40] LABS: HEMOGLOBIN A1c 7.4 %
== END ==
LOC: M LAB 14:36
PROVIDERS: ATTEND Family Medicine
DX: E11.65 Type 2 diabetes mellitus with hyperglycemia (principal)

== ENCOUNTER → 2021-04-21 | Outpatient (REF) | payer MEDICARE | LOC: M LAB REF 19:07 | PROVIDERS: ATTEND Family Medicine | DX: J01.90 Acute sinusitis, unspecified (principal) ==

== ENCOUNTER → 2021-05-08 | Outpatient (CLI) | payer MEDICARE ==
[~2021-05-08] MED LIST changes: +LOSA50TA28 PO; -LOSA50TA88 PO
== END ==
LOC: M PLAIMG 10:08
PROVIDERS: ATTEND Nurse Practitioner Adult Health
DX: R06.2 Wheezing (principal)

== ENCOUNTER → 2021-05-13 | Outpatient (CLI) | payer MEDICARE ==
[~2021-05-13] MED LIST changes: -LOSA50TA28 PO; +LOSA50TA88 PO
--- NOTE | 2021-05-13 08:42 | PFTRPT ---
Height: 73.00 Inches Weight: 278.00 Lbs BSA: 2.48 Diagnosis: R06.02 DATE: 05/13/2021 ORDERING PHYSICIAN: Chelsea Perez NP Pre and post bronchodilator studies have excellent technical quality. Forced vital capacity is reduced. FEV1 is in proportion. Obstructive index is therefore normal. Expiratory limit of the flow-volume loop does suggest combined dysfunction however. Favorable bronchodilator response is identified. Total lung capacity is minimally reduced. Residual volume is mildly elevated. Diffusing capacity is severely reduced but is appropriate for alveolar volume. Hemoglobin is acceptable at 12.2. Airway resistance and conductance are normal. IMPRESSION: Suspect significant obstructive ventilatory defect which is reversible. Mild restrictive defect. Please correlate clinically. MTDD
== END ==
LOC: M CARPUL 08:00
PROVIDERS: ATTEND Nurse Practitioner Adult Health
DX: R06.02 Shortness of breath (principal)

== ENCOUNTER → 2021-12-18 | Outpatient (REF) | payer MEDICARE ==
[~2021-12-18] MED LIST changes: +LOSA50TA28 PO; -LOSA50TA88 PO
== END ==
LOC: M LAB REF 16:27
PROVIDERS: ATTEND Family Medicine
DX: D72.829 Elevated white blood cell count, unspecified (principal)

== ENCOUNTER → 2022-07-28 | Outpatient (CLI) | payer MEDICARE | LOC: M PLAIMG 10:51 | PROVIDERS: ATTEND Physician Assistant Medical | DX: J32.0 Chronic maxillary sinusitis (principal); J34.1 Cyst and mucocele of nose and nasal sinus ==

== ENCOUNTER 2023-04-19 21:04 | Inpatient (IN) | payer MEDICARE ==
[~2023-04-19] VITALS: Ht 182.9 cm; Wt 133.5 kg
[2023-04-19] MEDS ORDERED: INSULANT (21:19)
[2023-04-19] MEDS ORDERED: ALBU8.5H (21:19)
[2023-04-19] MEDS ORDERED: FLUT12AE6 (21:19)
[2023-04-19] MEDS ORDERED: METO50TA7 (21:19)
[2023-04-19] MEDS ORDERED: HYDR12CA (21:19)
[2023-04-19] MEDS ORDERED: INSUH10VL (21:19)
[2023-04-19] MEDS ORDERED: MAG100TA PO (21:19)
[2023-04-19] MEDS ORDERED: MONT10TA97 (21:19)
[2023-04-19 22:35] LABS: BASO # 0.2 10^3/uL (0.0-0.2); BASO % 0.7 % (0.0-1.0); EOS # 0.2 10^3/uL (0.0-0.5); EOS % 0.6 % (0.0-3.0); HEMOGLOBIN 15.5 g/dl (12.0-15.5); LYMPH # 0.9 10^3/uL (1.5-5.0); LYMPH % 2.5 % (24.0-44.0); MEAN CORPUSCULAR HEMOGLOBIN 27.1 pg (27.0-33.0); MEAN CORPUSCULAR VOLUME 82.2 fl (80.0-96.0); NEUTROPHILS # 29.5 10^3/uL (1.5-8.5); NEUTROPHILS % 85.5 % (36.0-66.0); RED BLOOD COUNT 5.72 10^6/uL (4.00-5.40)
[2023-04-19 22:37] LABS: PLATELET COUNT, AUTOMATED 1015 10^3/uL (150-450); WHITE BLOOD COUNT 34.5 10^3/uL (4.0-10.0)
[2023-04-19 22:40] LABS: MONO # 2.1 10^3/uL (0.0-0.8)
[2023-04-19 23:00] LABS: CALCIUM LEVEL 8.5 MG/DL (8.3-10.6); CREATININE FOR GFR 1.16 MG/DL (0.55-1.30); GLOMERULAR FILTRATION RATE 48.9 (>39); POTASSIUM SERUM 5.6 MMOL/L (3.5-5.1)
[2023-04-20] VITALS (11 sets, daily range): BP systolic 137–187; BP diastolic 68–102; TEMP 97.1–98.3; O2SAT 86–97
[2023-04-20] MEDS ORDERED: MORPHINE 4 MG/ML 1ML VIAL IV PRN (00:50)
[2023-04-20] MEDS ORDERED: ONDANSETRON 4MG 2ML VIAL IV ONE (00:50)
[2023-04-20] MEDS ORDERED: NS 3,950 ML in IV 1 EA IV ONE (01:35)
[2023-04-20] MEDS ORDERED: METOPROLOL TART 50 MG TAB PO ONE (01:55)
[2023-04-20] MEDS: METOPROLOL 5 MG/5 ML VIAL IV SCH ×8 (02:05→04:18)
[2023-04-20] MEDS ORDERED: CEFTAROLINE FOSAMIL 600 MG in D5W MINI-BAG PLUS 50 ML IV ONE (02:45)
[2023-04-20 04:05] LABS: RSV AMPLIFICATION NEGATIVE (NEGATIVE)
[2023-04-20] MEDS ORDERED: ONDANSETRON 4MG 2ML VIAL IV PRN (04:20)
[2023-04-20] MEDS ORDERED: LR 1,000 ML IV SCH (04:20)
[2023-04-20] MEDS ORDERED: GLUCOSE 4GM CHEW TABLET PO PRN (04:20)
[2023-04-20] MEDS ORDERED: ALBUTEROL SULFATE 2.5MG/0.5ML INH NEB SOLN NEB PRN (04:20)
[2023-04-20] MEDS ORDERED: DEXTROSE 50% 50ML SYRINGE IV PRN (04:20)
[2023-04-20] MEDS ORDERED: GLUCAGON INJ 1MG VIAL SC PRN (04:20)
[2023-04-20] MEDS ORDERED: HEPARIN SOD (PORCINE) 5000UNITS/ML 1ML VIAL/SYRINGE SC SCH (04:20)
[2023-04-20] MEDS ORDERED: ACETAMINOPHEN TAB 650MG DOSE (2X325MG) PO PRN (04:20)
[2023-04-20] MEDS ORDERED: HYDROMORPHONE HCL 0.5 MG/ 0.5 ML SYRINGE IV PRN ×2 (04:20→12:30)
[2023-04-20] MEDS ORDERED: DIGOXIN 0.25 MG TAB PO SCH (05:00)
[2023-04-20 05:32] LABS: PROCALCITONIN 0.31 ng/ml
[2023-04-20 05:40] LABS: URIC ACID 12.1 MG/DL (3.1-7.8)
[2023-04-20 05:42] LABS: MAGNESIUM LEVEL 3.6 MG/DL (1.8-2.4)
[2023-04-20] MEDS ORDERED: FLUT12AE6 INH (05:42)
[2023-04-20] MEDS ORDERED: INSULANT SC (05:42)
[2023-04-20] MEDS ORDERED: HYDR12CA PO (05:42)
[2023-04-20] MEDS ORDERED: DEXT4TAB9 PO (05:42)
[2023-04-20] MEDS ORDERED: METO50TA7 PO (05:42)
[2023-04-20] MEDS ORDERED: ALEV220T22 PO (05:42)
[2023-04-20] MEDS ORDERED: MONT10TA97 PO (05:42)
[2023-04-20] MEDS ORDERED: FLON1SPR (05:42)
[2023-04-20] MEDS ORDERED: ALBU8.5H INH (05:43)
[2023-04-20] MEDS ORDERED: HOME MED LIST COMPLETE! XX SCH (05:45)
[2023-04-20] MEDS ORDERED: APIXABAN 5 MG TAB (ELIQUIS) PO ONE (05:45)
[2023-04-20 05:46] LABS: THYROID STIMULATING HORMONE 2.721 uIU/ML (0.55-4.78)
[2023-04-20 05:47] LABS: C REACTIVE PROTEIN QUANTITATIV 31.2 MG/DL (<1.0)
[2023-04-20 05:57] LABS: BASO # 0.2 10^3/uL (0.0-0.2); BASO % 0.6 % (0.0-1.0); EOS # 0.3 10^3/uL (0.0-0.5); EOS % 0.8 % (0.0-3.0); HEMATOCRIT 41.4 % (36.0-47.0); LYMPH % 3.2 % (24.0-44.0); MEAN CORPUSCULAR HEMOGLOBIN 26.4 pg (27.0-33.0); MEAN CORPUSCULAR HGB CONC 31.6 g/dl (32.0-36.5); MEAN CORPUSCULAR VOLUME 83.3 fl (80.0-96.0); MONO % 6.9 % (2.0-8.0); NEUTROPHILS # 26.3 10^3/uL (1.5-8.5); RED BLOOD COUNT 4.97 10^6/uL (4.00-5.40)
[2023-04-20] MEDS: APIXABAN 5 MG TAB (ELIQUIS) PO SCH (06:05)
[2023-04-20 06:29] LABS: HEMOGLOBIN 13.1 g/dl (12.0-15.5); MONO # 2.2 10^3/uL (0.0-0.8)
[2023-04-20 06:30] LABS: PLATELET COUNT, AUTOMATED 875 10^3/uL (150-450); WHITE BLOOD COUNT 31.3 10^3/uL (4.0-10.0)
[2023-04-20] MEDS: INSULIN LISPRO (NovoLOG) PER UNIT SC SCH ×4 (07:30→20:07)
[2023-04-20 08:30] LABS: C REACTIVE PROTEIN QUANTITATIV 27.5 MG/DL (<1.0)
[2023-04-20 08:31] LABS: CALCIUM LEVEL 7.8 MG/DL (8.3-10.6); CREATININE FOR GFR 1.01 MG/DL (0.55-1.30); GLOMERULAR FILTRATION RATE 57.4 (>39); POTASSIUM SERUM 5.4 MMOL/L (3.5-5.1)
[2023-04-20] MEDS ORDERED: METOPROLOL TART 25 MG TABLET PO SCH (09:00)
[2023-04-20] MEDS ORDERED: hydroCHLOROthiazide 12.5 MG CAPSULE PO SCH (09:00)
[2023-04-20] MEDS ORDERED: METOPROLOL TART 50 MG TAB PO SCH ×2 (09:00→17:00)
[2023-04-20] MEDS: MONTELUKAST 10 MG TAB PO SCH (09:00)
[2023-04-20] MEDS ORDERED: ALBUTEROL 90 MCG/ACT 8GM HFA INHALER INH PRN (10:15)
[2023-04-20] MEDS ORDERED: DIGOXIN INJ 0.5 MG/2 ML AMP IV STA (10:27)
[2023-04-20] MEDS: METOPROLOL TART 50 MG TAB PO SCH ×2 (10:54→16:18)
[2023-04-20] MEDS ORDERED: PATIROMER SORBITEX CALCIUM 8.4 GM POWDER PACKET (VELTASSA) PO ONE ×2 (10:55→20:00)
[2023-04-20] MEDS ORDERED: VANCOMYCIN HCL 750 MG in IV FLUID PLACE HOLDER 1 EA IV SCH (10:55)
[2023-04-20] MEDS ORDERED: ISOVUE-370 76% 100ML VIAL As Ordered ONE (11:05)
[2023-04-20] MEDS ORDERED: SIMETHICONE 80MG CHEW TAB PO PRN (11:30)
[2023-04-20] MEDS: LEVEMIR (INSULIN DETEMIR) 1 UNITS/0.01ML SC SCH ×2 (11:45→20:21)
[2023-04-20] MEDS: VANCOMYCIN HCL 1,000 MG, VIAL MATE ADAPTER 1 EACH in D5W 250 ML IV SCH ×2 (12:37→14:40)
[2023-04-20] MEDS: FLUTICASONE HFA 110MCG 12GM INHALER (FLOVENT) INH SCH ×2 (14:19→20:00)
[2023-04-20] MEDS ORDERED: CEFTAROLINE FOSAMIL 600 MG in D5W MINI-BAG PLUS 50 ML IV SCH (16:00)
[2023-04-20] MEDS: PIPERACILLIN/TAZOBACTAM SOD 3.375 GM in D5W MINI-BAG PLUS 50 ML IV SCH ×2 (16:16→21:30)
[2023-04-20 16:38] LABS: POTASSIUM SERUM 5.2 MMOL/L (3.5-5.1)
[2023-04-20] MEDS ORDERED: DIGOXIN 0.25 MG TAB PO ONE (18:00)
[2023-04-20] MEDS: PERCOCET 5MG/325MG TAB PO PRN (18:01)
[2023-04-20] MEDS ORDERED: VANCOMYCIN HCL 1,000 MG, VIAL MATE ADAPTER 1 EACH in D5W 250 ML IV SCH (21:00)
[2023-04-20 21:43] LABS: ANTI-STREPTOLYSIN O QUANT 83.7 IU/ML (<195)
[2023-04-21] VITALS (18 sets, daily range): BP systolic 135–178; BP diastolic 63–84; TEMP 97–98.3; O2SAT 86–99
[2023-04-21] MEDS: PERCOCET 5MG/325MG TAB PO PRN ×5 (00:12→21:59)
[2023-04-21] MEDS: METOPROLOL TART 50 MG TAB PO SCH ×5 (00:12→23:47)
[2023-04-21] MEDS ORDERED: HYDROMORPHONE HCL 0.5 MG/ 0.5 ML SYRINGE IV PRN (00:45)
[2023-04-21] MEDS ORDERED: PERCOCET 5MG/325MG TAB PO STA (01:06)
[2023-04-21] MEDS: PIPERACILLIN/TAZOBACTAM SOD 3.375 GM in D5W MINI-BAG PLUS 50 ML IV SCH (03:42)
[2023-04-21 04:21] LABS: HEMATOCRIT 38.9 % (36.0-47.0); HEMOGLOBIN 12.4 g/dl (12.0-15.5); MEAN CORPUSCULAR HEMOGLOBIN 26.8 pg (27.0-33.0); MEAN CORPUSCULAR HGB CONC 31.9 g/dl (32.0-36.5); MEAN CORPUSCULAR VOLUME 84.2 fl (80.0-96.0); PLATELET COUNT, AUTOMATED 792 10^3/uL (150-450); RED BLOOD COUNT 4.62 10^6/uL (4.00-5.40); WHITE BLOOD COUNT 28.8 10^3/uL (4.0-10.0)
[2023-04-21 04:47] LABS: C REACTIVE PROTEIN QUANTITATIV 21.8 MG/DL (<1.0)
[2023-04-21 04:48] LABS: CALCIUM LEVEL 8.1 MG/DL (8.3-10.6); CREATININE FOR GFR 1.02 MG/DL (0.55-1.30); GLOMERULAR FILTRATION RATE 56.7 (>39); POTASSIUM SERUM 4.9 MMOL/L (3.5-5.1)
[2023-04-21] MEDS: INSULIN LISPRO (NovoLOG) PER UNIT SC SCH ×4 (07:30→20:05)
[2023-04-21] MEDS: FLUTICASONE HFA 110MCG 12GM INHALER (FLOVENT) INH SCH ×2 (07:43→19:31)
[2023-04-21] MEDS: LEVEMIR (INSULIN DETEMIR) 1 UNITS/0.01ML SC SCH ×2 (08:21→21:28)
[2023-04-21] MEDS: ceFAZolin SOD 2 GM in IV 1 EA IV SCH ×2 (08:21→17:11)
[2023-04-21] MEDS: APIXABAN 5 MG TAB (ELIQUIS) PO SCH ×2 (08:21→21:28)
[2023-04-21] MEDS: MONTELUKAST 10 MG TAB PO SCH (08:21)
[2023-04-21] MEDS ORDERED: ATORVASTATIN 20 MG TAB PO SCH (09:00)
[2023-04-21] MEDS ORDERED: FUROSEMIDE 20MG/2ML VIAL IV ONE ×2 (09:50→18:15)
[2023-04-21] MEDS: ASPIRIN 81MG CHEW TABLET PO SCH (10:07)
[2023-04-21 10:10] LABS: CHOLESTEROL RISK RATIO 4.46 (<5); HDL CHOLESTEROL 30.9 MG/DL (>40); LDL CHOLESTEROL 93.3 MG/DL (<100); MAGNESIUM LEVEL 2.7 MG/DL (1.8-2.4); NON-HDL-C 107.1 MG/DL
[2023-04-22] VITALS (20 sets, daily range): BP systolic 130–166; BP diastolic 80–88; TEMP 97.6–99; O2SAT 90–99
[2023-04-22] MEDS: ceFAZolin SOD 2 GM in IV 1 EA IV SCH ×3 (01:21→17:32)
[2023-04-22] MEDS: PERCOCET 5MG/325MG TAB PO PRN ×4 (04:32→20:08)
[2023-04-22 05:47] LABS: C REACTIVE PROTEIN QUANTITATIV 15.5 MG/DL (<1.0); HEMATOCRIT 41.2 % (36.0-47.0); HEMOGLOBIN 12.9 g/dl (12.0-15.5); MEAN CORPUSCULAR HEMOGLOBIN 26.6 pg (27.0-33.0); MEAN CORPUSCULAR HGB CONC 31.3 g/dl (32.0-36.5); MEAN CORPUSCULAR VOLUME 84.9 fl (80.0-96.0); PLATELET COUNT, AUTOMATED 787 10^3/uL (150-450); RED BLOOD COUNT 4.85 10^6/uL (4.00-5.40); WHITE BLOOD COUNT 25.6 10^3/uL (4.0-10.0)
[2023-04-22 05:49] LABS: CALCIUM LEVEL 8.2 MG/DL (8.3-10.6); CREATININE FOR GFR 1.16 MG/DL (0.55-1.30); GLOMERULAR FILTRATION RATE 48.9 (>39); MAGNESIUM LEVEL 2.1 MG/DL (1.8-2.4); POTASSIUM SERUM 4.7 MMOL/L (3.5-5.1)
[2023-04-22] MEDS: METOPROLOL TART 50 MG TAB PO SCH ×3 (06:12→17:33)
[2023-04-22] MEDS: LEVEMIR (INSULIN DETEMIR) 1 UNITS/0.01ML SC SCH ×2 (08:17→21:04)
[2023-04-22] MEDS: MONTELUKAST 10 MG TAB PO SCH (08:18)
[2023-04-22] MEDS: INSULIN LISPRO (NovoLOG) PER UNIT SC SCH ×4 (08:18→21:00)
[2023-04-22] MEDS: ASPIRIN 81MG CHEW TABLET PO SCH (08:18)
[2023-04-22] MEDS: APIXABAN 5 MG TAB (ELIQUIS) PO SCH ×2 (08:18→20:08)
[2023-04-22] MEDS: FLUTICASONE HFA 110MCG 12GM INHALER (FLOVENT) INH SCH ×2 (09:22→20:44)
[2023-04-22] MEDS ORDERED: FUROSEMIDE 40MG/4ML VIAL IV ONE (10:30)
[2023-04-22] MEDS ORDERED: DIGOXIN 0.25 MG TAB PO ONE (10:30)
[2023-04-23] VITALS (8 sets, daily range): BP systolic 144–178; BP diastolic 66–96; TEMP 96–98.5; O2SAT 91–95
[2023-04-23] MEDS: PERCOCET 5MG/325MG TAB PO PRN ×5 (00:21→23:39)
[2023-04-23] MEDS: METOPROLOL TART 50 MG TAB PO SCH ×5 (00:22→23:39)
[2023-04-23] MEDS: ceFAZolin SOD 2 GM in IV 1 EA IV SCH ×3 (00:22→17:34)
[2023-04-23] MEDS ORDERED: MIRALAX *UNIT DOSE* 17GM PACKET PO PRN (01:40)
[2023-04-23] MEDS ORDERED: MOM 30ML SUSPENSION UDC PO PRN (01:40)
[2023-04-23] MEDS: SENOKOT S TAB PO PRN (04:19)
[2023-04-23 06:02] LABS: BASO # 0.1 10^3/uL (0.0-0.2); BASO % 0.5 % (0.0-1.0); EOS # 0.4 10^3/uL (0.0-0.5); EOS % 1.7 % (0.0-3.0); HEMATOCRIT 40.4 % (36.0-47.0); HEMOGLOBIN 12.9 g/dl (12.0-15.5); LYMPH % 3.9 % (24.0-44.0); MEAN CORPUSCULAR HEMOGLOBIN 26.9 pg (27.0-33.0); MEAN CORPUSCULAR HGB CONC 31.9 g/dl (32.0-36.5); MEAN CORPUSCULAR VOLUME 84.2 fl (80.0-96.0); MONO % 7.1 % (2.0-8.0); NEUTROPHILS # 21.2 10^3/uL (1.5-8.5); NEUTROPHILS % 82.7 % (36.0-66.0); PLATELET COUNT, AUTOMATED 767 10^3/uL (150-450); WHITE BLOOD COUNT 25.6 10^3/uL (4.0-10.0)
[2023-04-23 06:36] LABS: CALCIUM LEVEL 8.3 MG/DL (8.3-10.6); CREATININE FOR GFR 1.06 MG/DL (0.55-1.30); GLOMERULAR FILTRATION RATE 54.2 (>39); POTASSIUM SERUM 4.7 MMOL/L (3.5-5.1)
[2023-04-23 06:37] LABS: MONO # 1.8 10^3/uL (0.0-0.8)
[2023-04-23] MEDS: INSULIN LISPRO (NovoLOG) PER UNIT SC SCH ×4 (07:30→20:15)
[2023-04-23 07:31] LABS: C REACTIVE PROTEIN QUANTITATIV 16.4 MG/DL (<1.0)
[2023-04-23] MEDS: APIXABAN 5 MG TAB (ELIQUIS) PO SCH ×2 (09:01→20:15)
[2023-04-23] MEDS: ASPIRIN 81MG CHEW TABLET PO SCH (09:01)
[2023-04-23] MEDS: DIGOXIN 0.125 MG TAB PO SCH (09:01)
[2023-04-23] MEDS: LEVEMIR (INSULIN DETEMIR) 1 UNITS/0.01ML SC SCH ×2 (09:02→20:15)
[2023-04-23] MEDS: MONTELUKAST 10 MG TAB PO SCH (09:02)
[2023-04-23] MEDS ORDERED: FUROSEMIDE 40 MG TAB PO SCH (09:55)
[2023-04-23] MEDS: FLUTICASONE HFA 110MCG 12GM INHALER (FLOVENT) INH SCH ×2 (11:19→19:12)
[2023-04-24 04:00] VITALS: BP 150/94; TEMP 97.1; O2SAT 95
[2023-04-24] MEDS: METOPROLOL TART 50 MG TAB PO SCH ×3 (06:03→18:20)
[2023-04-24] MEDS: PERCOCET 5MG/325MG TAB PO PRN ×3 (06:04→18:21)
[2023-04-24 06:08] LABS: HEMOGLOBIN 12.6 g/dl (12.0-15.5); MEAN CORPUSCULAR HEMOGLOBIN 26.8 pg (27.0-33.0); MEAN CORPUSCULAR HGB CONC 31.5 g/dl (32.0-36.5); MEAN CORPUSCULAR VOLUME 85.1 fl (80.0-96.0); PLATELET COUNT, AUTOMATED 690 10^3/uL (150-450); WHITE BLOOD COUNT 28.7 10^3/uL (4.0-10.0)
[2023-04-24 06:35] LABS: ATYPICAL LYMPH 2 % (0-5); BASOPHILS 1 % (0-1); CALCIUM LEVEL 8.1 MG/DL (8.3-10.6); CREATININE FOR GFR 0.99 MG/DL (0.55-1.30); DIGOXIN LEVEL 0.9 NG/ML (0.8-2.0); EOSINOPHILS 1 % (0-3); GLOMERULAR FILTRATION RATE 58.7 (>39); LYMPHOCYTES 2 % (16-44); METAMYELOCYTES 1 % (0-0); MONOCYTES 2 % (0-5); NEUTROPHILS 90 % (28-66); POTASSIUM SERUM 4.4 MMOL/L (3.5-5.1)
[2023-04-24 06:36] LABS: PLATELET CLUMPS SMALL AMT; PLATELET ESTIMATE INCREASED (NORMAL)
[2023-04-24 06:38] LABS: ANISOCYTOSIS 1+; POLYCHROMASIA 1+
[2023-04-24] MEDS: FLUTICASONE HFA 110MCG 12GM INHALER (FLOVENT) INH SCH ×2 (07:39→19:18)
[2023-04-24 07:57] LABS: C REACTIVE PROTEIN QUANTITATIV 18.3 MG/DL (<1.0)
[2023-04-24 08:00] VITALS: BP 152/72; TEMP 96.1; O2SAT 95
[2023-04-24] MEDS ORDERED: FUROSEMIDE 20MG/2ML VIAL IV SCH (09:00)
[2023-04-24] MEDS: LEVEMIR (INSULIN DETEMIR) 1 UNITS/0.01ML SC SCH ×2 (09:49→21:47)
[2023-04-24] MEDS: APIXABAN 5 MG TAB (ELIQUIS) PO SCH ×2 (09:50→21:47)
[2023-04-24] MEDS: CEPHALEXIN 500 MG CAP PO SCH ×3 (09:50→21:47)
[2023-04-24] MEDS: INSULIN LISPRO (NovoLOG) PER UNIT SC SCH ×4 (09:50→21:00)
[2023-04-24] MEDS: MONTELUKAST 10 MG TAB PO SCH (09:51)
[2023-04-24] MEDS: ASPIRIN 81MG CHEW TABLET PO SCH (09:51)
[2023-04-24] MEDS: DIGOXIN 0.125 MG TAB PO SCH (09:51)
[2023-04-24] MEDS: SENOKOT S TAB PO PRN (09:57)
[2023-04-24] MEDS ORDERED: DIGOXIN 0.125 MG TAB PO ONE (10:00)
[2023-04-24 11:38] VITALS: BP 152/70; TEMP 97.6; O2SAT 93
[2023-04-24 15:11] VITALS: BP 142/72; TEMP 96.9; O2SAT 93
[2023-04-24] MEDS ORDERED: FUROSEMIDE 40MG/4ML VIAL IV SCH (17:00)
[2023-04-24 18:18] VITALS: BP 156/72
[2023-04-24 21:20] VITALS: BP 162/78; TEMP 97.6; O2SAT 95
[2023-04-25] VITALS (8 sets, daily range): BP systolic 121–160; BP diastolic 68–95; TEMP 97.1–98.8; O2SAT 94–98
[2023-04-25] MEDS: PERCOCET 5MG/325MG TAB PO PRN ×4 (00:54→20:35)
[2023-04-25] MEDS: METOPROLOL TART 50 MG TAB PO SCH ×4 (00:55→18:28)
[2023-04-25 06:06] LABS: BASO # 0.1 10^3/uL (0.0-0.2); BASO % 0.6 % (0.0-1.0); EOS # 0.4 10^3/uL (0.0-0.5); EOS % 1.5 % (0.0-3.0); HEMATOCRIT 41.6 % (36.0-47.0); HEMOGLOBIN 13.2 g/dl (12.0-15.5); LYMPH # 1.1 10^3/uL (1.5-5.0); LYMPH % 4.4 % (24.0-44.0); MEAN CORPUSCULAR HGB CONC 31.7 g/dl (32.0-36.5); MEAN CORPUSCULAR VOLUME 85.1 fl (80.0-96.0); MONO % 6.9 % (2.0-8.0); NEUTROPHILS # 20.4 10^3/uL (1.5-8.5); NEUTROPHILS % 84.2 % (36.0-66.0); PLATELET COUNT, AUTOMATED 639 10^3/uL (150-450); RED BLOOD COUNT 4.89 10^6/uL (4.00-5.40); WHITE BLOOD COUNT 24.2 10^3/uL (4.0-10.0)
[2023-04-25 06:28] LABS: BLOOD UREA NITROGEN 24 MG/DL (9-23); CALCIUM LEVEL 8.5 MG/DL (8.3-10.6); CARBON DIOXIDE LEVEL 31 MMOL/L (20-31); CHLORIDE LEVEL 100 MMOL/L (98-107); CREATININE FOR GFR 0.94 MG/DL (0.55-1.30); GLOMERULAR FILTRATION RATE > 60.0 (>39); GLUCOSE, FASTING 76 MG/DL (74-106); POTASSIUM SERUM 4.5 MMOL/L (3.5-5.1); SODIUM LEVEL 140 MMOL/L (136-145)
[2023-04-25 06:34] LABS: PROCALCITONIN 0.15 ng/ml
[2023-04-25 07:09] LABS: MONO # 1.7 10^3/uL (0.0-0.8)
[2023-04-25] MEDS: INSULIN LISPRO (NovoLOG) PER UNIT SC SCH ×4 (07:30→20:36)
[2023-04-25] MEDS: FLUTICASONE HFA 110MCG 12GM INHALER (FLOVENT) INH SCH ×2 (07:33→21:06)
[2023-04-25] MEDS: MONTELUKAST 10 MG TAB PO SCH (08:26)
[2023-04-25] MEDS: ASPIRIN 81MG CHEW TABLET PO SCH (08:26)
[2023-04-25] MEDS: LEVEMIR (INSULIN DETEMIR) 1 UNITS/0.01ML SC SCH ×2 (08:26→20:35)
[2023-04-25] MEDS: APIXABAN 5 MG TAB (ELIQUIS) PO SCH ×2 (08:26→20:34)
[2023-04-25] MEDS: CEPHALEXIN 500 MG CAP PO SCH ×3 (08:27→20:36)
[2023-04-25] MEDS: DIGOXIN 0.125 MG TAB PO SCH (08:27)
[2023-04-25] MEDS: TORSEMIDE (DEMADEX) 50 MG PER 1/2 TAB PO SCH (10:38)
[2023-04-25] MEDS: SENOKOT S TAB PO PRN (10:39)
[2023-04-25] MEDS ORDERED: ELIQ5TAB PO (11:51)
[2023-04-26] MEDS: METOPROLOL TART 50 MG TAB PO SCH ×5 (00:07→23:57)
[2023-04-26 02:45] VITALS: BP 140/72; TEMP 98.4; O2SAT 98
[2023-04-26] MEDS: PERCOCET 5MG/325MG TAB PO PRN ×5 (02:45→22:01)
[2023-04-26 06:10] LABS: BASO # 0.2 10^3/uL (0.0-0.2); BASO % 0.7 % (0.0-1.0); EOS # 0.4 10^3/uL (0.0-0.5); EOS % 1.7 % (0.0-3.0); HEMATOCRIT 41.4 % (36.0-47.0); HEMOGLOBIN 13.2 g/dl (12.0-15.5); MEAN CORPUSCULAR HEMOGLOBIN 27.2 pg (27.0-33.0); MEAN CORPUSCULAR HGB CONC 31.9 g/dl (32.0-36.5); MEAN CORPUSCULAR VOLUME 85.4 fl (80.0-96.0); NEUTROPHILS # 20.9 10^3/uL (1.5-8.5); NEUTROPHILS % 84.2 % (36.0-66.0); PLATELET COUNT, AUTOMATED 694 10^3/uL (150-450); RED BLOOD COUNT 4.85 10^6/uL (4.00-5.40); WHITE BLOOD COUNT 24.9 10^3/uL (4.0-10.0)
[2023-04-26 06:38] LABS: URIC ACID 6.1 MG/DL (3.1-7.8)
[2023-04-26 06:41] LABS: CALCIUM LEVEL 8.3 MG/DL (8.3-10.6); CREATININE FOR GFR 1.02 MG/DL (0.55-1.30); GLOMERULAR FILTRATION RATE 56.7 (>39); MAGNESIUM LEVEL 1.7 MG/DL (1.8-2.4); POTASSIUM SERUM 4.5 MMOL/L (3.5-5.1)
[2023-04-26 07:25] LABS: C REACTIVE PROTEIN QUANTITATIV 20.4 MG/DL (<1.0)
[2023-04-26] MEDS: INSULIN LISPRO (NovoLOG) PER UNIT SC SCH ×4 (07:30→21:00)
[2023-04-26 08:00] VITALS: BP 162/79; TEMP 98; O2SAT 91
[2023-04-26] MEDS: MONTELUKAST 10 MG TAB PO SCH (09:00)
[2023-04-26] MEDS: DIGOXIN 0.125 MG TAB PO SCH (09:00)
[2023-04-26] MEDS: LEVEMIR (INSULIN DETEMIR) 1 UNITS/0.01ML SC SCH ×2 (09:00→22:00)
[2023-04-26] MEDS: APIXABAN 5 MG TAB (ELIQUIS) PO SCH ×2 (09:00→22:01)
[2023-04-26] MEDS: MAG SULF 1GM/100ML (MAG RUN) 1 GM in IV 1 EA IV SCH ×2 (09:00→10:00)
[2023-04-26] MEDS: CEPHALEXIN 500 MG CAP PO SCH (09:00)
[2023-04-26] MEDS: ASPIRIN 81MG CHEW TABLET PO SCH (09:01)
[2023-04-26] MEDS: TORSEMIDE (DEMADEX) 50 MG PER 1/2 TAB PO SCH (09:01)
[2023-04-26] MEDS: FLUTICASONE HFA 110MCG 12GM INHALER (FLOVENT) INH SCH ×2 (09:13→20:10)
[2023-04-26 12:00] VITALS: BP 176/91; TEMP 98.7; O2SAT 94
[2023-04-26] MEDS: LINEZOLID 600MG TABLET (ZYVOX) PO SCH ×2 (13:08→22:00)
[2023-04-26] MEDS: SENOKOT S TAB PO PRN (13:32)
[2023-04-26 16:00] VITALS: BP 147/79; TEMP 98.9; O2SAT 93
[2023-04-26] MEDS: amLODIPine 5 MG TAB PO SCH (17:41)
[2023-04-26 19:24] VITALS: BP 132/73; TEMP 97.4; O2SAT 93
[2023-04-26 23:01] VITALS: BP 144/68; TEMP 98.5; O2SAT 95
[2023-04-27] MEDS: PERCOCET 5MG/325MG TAB PO PRN ×3 (02:04→12:54)
[2023-04-27 03:53] VITALS: BP 165/75; TEMP 98.6; O2SAT 94
[2023-04-27] MEDS: METOPROLOL TART 50 MG TAB PO SCH ×2 (06:08→12:51)
[2023-04-27 07:04] LABS: BASO # 0.1 10^3/uL (0.0-0.2); BASO % 0.6 % (0.0-1.0); EOS # 0.4 10^3/uL (0.0-0.5); EOS % 1.8 % (0.0-3.0); HEMATOCRIT 40.7 % (36.0-47.0); HEMOGLOBIN 12.6 g/dl (12.0-15.5); LYMPH # 0.9 10^3/uL (1.5-5.0); LYMPH % 4.3 % (24.0-44.0); MEAN CORPUSCULAR HEMOGLOBIN 26.5 pg (27.0-33.0); MEAN CORPUSCULAR VOLUME 85.5 fl (80.0-96.0); MONO % 8.7 % (2.0-8.0); NEUTROPHILS # 18.4 10^3/uL (1.5-8.5); NEUTROPHILS % 83.6 % (36.0-66.0); PLATELET COUNT, AUTOMATED 652 10^3/uL (150-450); RED BLOOD COUNT 4.76 10^6/uL (4.00-5.40)
[2023-04-27 07:29] LABS: C REACTIVE PROTEIN QUANTITATIV 20.3 MG/DL (<1.0)
[2023-04-27 07:31] LABS: MONO # 1.9 10^3/uL (0.0-0.8)
[2023-04-27 07:41] LABS: CALCIUM LEVEL 8.6 MG/DL (8.3-10.6); CREATININE FOR GFR 1.05 MG/DL (0.55-1.30); GLOMERULAR FILTRATION RATE 54.8 (>39); POTASSIUM SERUM 4.5 MMOL/L (3.5-5.1)
[2023-04-27] MEDS: FLUTICASONE HFA 110MCG 12GM INHALER (FLOVENT) INH SCH (07:59)
[2023-04-27 08:10] VITALS: BP 140/69; TEMP 98.6; O2SAT 94
[2023-04-27] MEDS: INSULIN LISPRO (NovoLOG) PER UNIT SC SCH ×2 (08:34→12:51)
[2023-04-27] MEDS: TORSEMIDE (DEMADEX) 50 MG PER 1/2 TAB PO SCH (08:35)
[2023-04-27] MEDS: APIXABAN 5 MG TAB (ELIQUIS) PO SCH (08:35)
[2023-04-27] MEDS: MONTELUKAST 10 MG TAB PO SCH (08:35)
[2023-04-27] MEDS: amLODIPine 5 MG TAB PO SCH (08:37)
[2023-04-27] MEDS: DIGOXIN 0.125 MG TAB PO SCH (08:38)
[2023-04-27] MEDS: LEVEMIR (INSULIN DETEMIR) 1 UNITS/0.01ML SC SCH (08:38)
[2023-04-27] MEDS: LINEZOLID 600MG TABLET (ZYVOX) PO SCH (08:38)
[2023-04-27] MEDS: ASPIRIN 81MG CHEW TABLET PO SCH (08:38)
[2023-04-27] MEDS ORDERED: LINE1TAB PO (11:23)
[2023-04-27 12:51] VITALS: BP 144/78
[2023-04-27] MEDS ORDERED: METO100T5 PO (13:55)
[2023-04-27] MEDS ORDERED: DALV1SOL IV (13:55)
[2023-04-27] MEDS ORDERED: MIRA3350 PO (13:55)
[2023-04-27] MEDS ORDERED: OXYC1TAB23 PO (13:55)
[2023-04-27] MEDS ORDERED: AMLO1TAB24 PO (13:55)
[2023-04-27] MEDS ORDERED: TORS20TA2 PO (13:55)
[2023-04-27] MEDS ORDERED: DIGO0.123 PO (13:55)
[2023-04-27] MEDS ORDERED: ASPI81TA26 PO (14:03)
== END 2023-04-27 14:47 | disposition home or self-care (01) | DRG 872 ==
LOC: M ED 21:04 → M ED INP 04-20 04:19 → ENRESERV 04-20 14:23 → M ICU 04-20 15:23 → M PCU 04-21 16:22
PROVIDERS: ADMIT Internal Medicine; ATTEND Internal Medicine
PROC: B246ZZZ Ultrasonography of Right and Left Heart (ICD-10-PCS; principal; 2023-04-20)
DX: A41.9 Sepsis, unspecified organism (principal); L03.116 Cellulitis of left lower limb; E87.1 Hypo-osmolality and hyponatremia; Z68.41 Body mass index [BMI] 40.0-44.9, adult; C92.10 Chronic myeloid leukemia, BCR/ABL-positive, not having achieved remission; I48.91 Unspecified atrial fibrillation; E83.41 Hypermagnesemia; I27.20 Pulmonary hypertension, unspecified; I50.810 Right heart failure, unspecified; I11.0 Hypertensive heart disease with heart failure; Z66 Do not resuscitate; E87.5 Hyperkalemia; D47.3 Essential (hemorrhagic) thrombocythemia; I73.9 Peripheral vascular disease, unspecified; E66.9 Obesity, unspecified; E79.0 Hyperuricemia without signs of inflammatory arthritis and tophaceous disease; I89.0 Lymphedema, not elsewhere classified; E11.51 Type 2 diabetes mellitus with diabetic peripheral angiopathy without gangrene; J45.909 Unspecified asthma, uncomplicated; Z90.49 Acquired absence of other specified parts of digestive tract; Z90.79 Acquired absence of other genital organ(s); Z79.4 Long term (current) use of insulin; Z79.899 Other long term (current) drug therapy; Z20.822 Contact with and (suspected) exposure to COVID-19

== ENCOUNTER 2023-04-27 14:56 | Outpatient (CLI) | payer MEDICARE ==
[~2023-04-27 14:56] MED LIST changes: +ALBU8.5H; +ALBU8.5H INH; +ALEV220T22 PO; +AMLO1TAB24 PO; +DALV1SOL IV; +DEXT4TAB9 PO; +DIGO0.123 PO; +FLON1SPR; +FLUT12AE6; +FLUT12AE6 INH; +HYDR12CA; +HYDR12CA PO; +INSUH10VL; +INSULANT; +INSULANT SC; +LINE1TAB PO; +MAG100TA PO; +METO100T5 PO; +METO50TA7; +MIRA3350 PO; +MONT10TA97; +MONT10TA97 PO; +OXYC1TAB23 PO; +TORS20TA2 PO
[2023-04-27] MEDS ORDERED: DALBAVANCIN 1,500 MG in D5W 250 ML IV ONE (16:00)
[2023-04-27 16:45] VITALS: BP 142/86; O2SAT 93
== END 2023-04-27 16:45 | disposition home or self-care (01) ==
LOC: M INFU 14:56
PROVIDERS: ATTEND Internal Medicine
DX: L03.116 Cellulitis of left lower limb (principal)
CPT/HCPCS: 96365; J0875

== ENCOUNTER → 2023-05-03 | Outpatient (REF) | payer MEDICARE ==
[2023-05-03 17:24] LABS: URIC ACID 6.6 MG/DL (3.1-7.8)
[2023-05-03 17:26] LABS: C REACTIVE PROTEIN QUANTITATIV 19.7 MG/DL (<1.0)
== END ==
LOC: M LAB REF 16:28
PROVIDERS: ATTEND Family Medicine
DX: M25.50 Pain in unspecified joint (principal)

== ENCOUNTER → 2023-05-27 | Outpatient (CLI) | payer MEDICARE ==
[2023-05-27 13:44] LABS: BASO # 0.2 10^3/uL (0.0-0.2); BASO % 0.9 % (0.0-1.0); EOS # 0.4 10^3/uL (0.0-0.5); EOS % 1.8 % (0.0-3.0); HEMATOCRIT 40.7 % (36.0-47.0); HEMOGLOBIN 12.1 g/dl (12.0-15.5); LYMPH # 1.3 10^3/uL (1.5-5.0); LYMPH % 5.9 % (24.0-44.0); MEAN CORPUSCULAR HGB CONC 29.7 g/dl (32.0-36.5); MEAN CORPUSCULAR VOLUME 87.5 fl (80.0-96.0); MONO # 1.8 10^3/uL (0.0-0.8); MONO % 8.4 % (2.0-8.0); NEUTROPHILS # 17.8 10^3/uL (1.5-8.5); NEUTROPHILS % 82.1 % (36.0-66.0); PLATELET COUNT, AUTOMATED 939 10^3/uL (150-450); RED BLOOD COUNT 4.65 10^6/uL (4.00-5.40); WHITE BLOOD COUNT 21.7 10^3/uL (4.0-10.0)
[2023-05-27 14:12] LABS: ALBUMIN 3.2 G/DL (3.2-5.2); BILIRUBIN,TOTAL 0.7 MG/DL (0.3-1.2); CALCIUM LEVEL 9.3 MG/DL (8.3-10.6); CREATININE FOR GFR 1.32 MG/DL (0.55-1.30); GLOMERULAR FILTRATION RATE 42.1 (>39); POTASSIUM SERUM 5.3 MMOL/L (3.5-5.1); TOTAL PROTEIN 6.7 G/DL (5.7-8.2)
== END ==
LOC: M PLALAB 12:06
PROVIDERS: ATTEND Internal Medicine Infectious Disease
DX: L03.116 Cellulitis of left lower limb (principal)

== ENCOUNTER → 2023-06-14 | Outpatient (CLI) | payer MEDICARE ==
[2023-06-14 16:01] LABS: BASO # 0.2 10^3/uL (0.0-0.2); BASO % 0.9 % (0.0-1.0); EOS # 0.6 10^3/uL (0.0-0.5); HEMATOCRIT 34.7 % (36.0-47.0); HEMOGLOBIN 10.1 g/dl (12.0-15.5); LYMPH # 1.2 10^3/uL (1.5-5.0); LYMPH % 6.5 % (24.0-44.0); MEAN CORPUSCULAR HEMOGLOBIN 26.4 pg (27.0-33.0); MEAN CORPUSCULAR HGB CONC 29.1 g/dl (32.0-36.5); MEAN CORPUSCULAR VOLUME 90.6 fl (80.0-96.0); MONO % 14.5 % (2.0-8.0); NEUTROPHILS # 13.8 10^3/uL (1.5-8.5); NEUTROPHILS % 73.4 % (36.0-66.0); PLATELET COUNT, AUTOMATED 638 10^3/uL (150-450); RED BLOOD COUNT 3.83 10^6/uL (4.00-5.40); WHITE BLOOD COUNT 18.9 10^3/uL (4.0-10.0)
[2023-06-14 16:05] LABS: MONO # 2.7 10^3/uL (0.0-0.8)
[2023-06-14 16:18] LABS: ERYTHROCYTE SEDIMENTATION RATE 58 mm/hr (0-30)
== END ==
LOC: M PLALAB 13:48
PROVIDERS: ATTEND Internal Medicine Infectious Disease
DX: L03.116 Cellulitis of left lower limb (principal)

== ENCOUNTER → 2023-07-29 | Outpatient (REF) | payer MEDICARE ==
[2023-07-29 19:09] LABS: EOSINOPHILS 6 % (0-3); LYMPHOCYTES 5 % (16-44); MONOCYTES 8 % (0-5); NEUTROPHILS 81 % (28-66); PLATELET ESTIMATE INCREASED (NORMAL)
[2023-07-29 19:10] LABS: ANISOCYTOSIS 2+; HYPOCHROMASIA 2+
[2023-07-29 19:11] LABS: MICROCYTOSIS 1+; POLYCHROMASIA 1+
== END ==
LOC: M LAB REF 16:34
PROVIDERS: ATTEND Family Medicine
DX: D72.828 Other elevated white blood cell count (principal)

== ENCOUNTER → 2023-08-30 | Outpatient (REF) | payer MEDICARE ==
[2023-08-30 20:09] LABS: ATYPICAL LYMPH 1 % (0-5); BASOPHILS 1 % (0-1); EOSINOPHILS 3 % (0-3); LYMPHOCYTES 7 % (16-44); MONOCYTES 6 % (0-5); NEUTROPHILS 82 % (28-66)
[2023-08-30 20:10] LABS: ANISOCYTOSIS 1+; MICROCYTOSIS 1+; PLATELET ESTIMATE INCREASED (NORMAL)
[2023-08-30 20:11] LABS: HYPOCHROMASIA 1+
== END ==
LOC: M LAB REF 17:34
PROVIDERS: ATTEND Family Medicine
DX: D72.829 Elevated white blood cell count, unspecified (principal)

== ENCOUNTER → 2023-09-27 | Outpatient (REF) | payer MEDICARE ==
[2023-09-27 17:20] LABS: PERCENT SATURATION 4.6 % (13.2-45.0)
[2023-09-27 17:23] LABS: FERRITIN 15.3 NG/ML (7.3-270.7)
== END ==
LOC: M LAB REF 16:14
PROVIDERS: ATTEND Family Medicine
DX: E61.1 Iron deficiency (principal)

== ENCOUNTER → 2023-10-19 | Outpatient (REF) | payer MEDICARE | LOC: M LAB REF 13:10 | PROVIDERS: ATTEND Family Medicine | DX: R79.82 Elevated C-reactive protein (CRP) (principal) ==

== ENCOUNTER → 2023-10-19 | Outpatient (REF) | payer MEDICARE | LOC: M LAB REF 16:51 | PROVIDERS: ATTEND Family Medicine | DX: Z15.89 Genetic susceptibility to other disease (principal) ==

== ENCOUNTER 2023-10-29 10:38 | Outpatient (CLI) | payer MEDICARE ==
[~2023-10-29] VITALS: Ht 182.9 cm; Wt 127.0 kg
[~2023-10-29 10:38] MED LIST changes: +ALBUTEROL SULFATE 2.5MG/0.5ML INH NEB SOLN INH PRN; +EPINEPHrine INJ 1 MG/ML 1ML AMP IM PRN; +NS 1,000 ML IV SCH; +diphenhydrAMINE 50MG/ML VIAL IV PRN; +methylPREDNISolone 125MG 2ML VIAL IV PRN
[2023-10-29 10:50] VITALS: BP 157/73; O2SAT 97
[2023-10-29] MEDS: IRON SUCROSE 25 MG in NS 23.75 ML IV ONE (12:13)
[2023-10-29] MEDS: IRON SUCROSE 275 MG in NS 250 ML IV ONE (12:58)
[2023-10-29 14:45] VITALS: BP 135/69; O2SAT 97
== END 2023-10-29 14:45 ==
LOC: M INFU 10:38
PROVIDERS: ATTEND Family Medicine
DX: E61.1 Iron deficiency (principal)
CPT/HCPCS: 96365; 96366; J1756

== ENCOUNTER 2023-11-05 11:20 | Outpatient (CLI) | payer MEDICARE ==
[~2023-11-05] VITALS: Ht 185.4 cm; Wt 127.0 kg
[2023-11-05 11:20] VITALS: BP 191/85; O2SAT 94
[2023-11-05] MEDS: IRON SUCROSE 300 MG in NS 250 ML OVER 90 MIN. IV ONE (12:00)
[2023-11-05 13:50] VITALS: BP 136/66; O2SAT 96
== END 2023-11-05 13:50 | disposition home or self-care (01) ==
LOC: M INFU 11:20
PROVIDERS: ATTEND Family Medicine
DX: E61.1 Iron deficiency (principal)
CPT/HCPCS: 96365; 96366; J1756

== ENCOUNTER 2023-11-12 11:05 | Outpatient (CLI) | payer MEDICARE ==
[~2023-11-12] VITALS: Ht 175.3 cm; Wt 127.0 kg
[2023-11-12 11:05] VITALS: BP 168/60; O2SAT 95
[2023-11-12] MEDS: IRON SUCROSE 300 MG in NS 250 ML IV ONE (11:34)
[2023-11-12 13:25] VITALS: BP 164/82; O2SAT 95
== END 2023-11-12 13:30 ==
LOC: M INFU 11:05
PROVIDERS: ATTEND Family Medicine
DX: E61.1 Iron deficiency (principal)
CPT/HCPCS: 96365; 96366; J1756

== ENCOUNTER → 2023-11-25 | Outpatient (REF) | payer MEDICARE ==
[~2023-11-25] MED LIST changes: -ALBUTEROL SULFATE 2.5MG/0.5ML INH NEB SOLN INH PRN; -EPINEPHrine INJ 1 MG/ML 1ML AMP IM PRN; -NS 1,000 ML IV SCH; -diphenhydrAMINE 50MG/ML VIAL IV PRN; -methylPREDNISolone 125MG 2ML VIAL IV PRN
[2023-11-25 17:20] LABS: PERCENT SATURATION 17.3 % (13.2-45.0)
[2023-11-25 17:23] LABS: FERRITIN 142.1 NG/ML (7.3-270.7)
== END ==
LOC: M LAB REF 16:06
PROVIDERS: ATTEND Family Medicine
DX: E61.1 Iron deficiency (principal)

== ENCOUNTER → 2023-12-27 | Outpatient (REF) | payer MEDICARE | LOC: M LAB REF 16:28 | PROVIDERS: ATTEND Family Medicine | DX: E11.65 Type 2 diabetes mellitus with hyperglycemia (principal); N18.30 Chronic kidney disease, stage 3 unspecified; Z79.899 Other long term (current) drug therapy ==

== ENCOUNTER → 2024-01-31 | Outpatient (CLI) | payer MEDICARE ==
[2024-01-31 08:52] LABS: HEMATOCRIT 44.7 % (36.0-47.0); HEMOGLOBIN 13.9 g/dl (12.0-15.5); MEAN CORPUSCULAR HEMOGLOBIN 24.8 pg (27.0-33.0); MEAN CORPUSCULAR HGB CONC 31.1 g/dl (32.0-36.5); MEAN CORPUSCULAR VOLUME 79.8 fl (80.0-96.0); PLATELET COUNT, AUTOMATED 424 10^3/uL (150-450)
[2024-01-31 09:24] LABS: TOTAL IRON BINDING CAPACITY 240 UG/DL (250-425)
[2024-01-31 09:25] LABS: ALBUMIN 3.3 G/DL (3.2-5.2); ALKALINE PHOSPHATASE 113 U/L (46-116); ALT/SGPT 26 U/L (7.0-40); AST/SGOT < 8 U/L (<34); BILIRUBIN,TOTAL 2.3 MG/DL (0.3-1.2); BLOOD UREA NITROGEN 32 MG/DL (9-23); CALCIUM LEVEL 9.2 MG/DL (8.3-10.6); CARBON DIOXIDE LEVEL 26 MMOL/L (20-31); CHLORIDE LEVEL 105 MMOL/L (98-107); CREATININE FOR GFR 1.54 MG/DL (0.55-1.30); FERRITIN 198.1 NG/ML (7.3-270.7); GLOMERULAR FILTRATION RATE 35.3 (>39); GLUCOSE, FASTING 103 MG/DL (74-106); IRON (FE) 23 UG/DL (50-170); PERCENT SATURATION 9.6 % (13.2-45.0); POTASSIUM SERUM 4.7 MMOL/L (3.5-5.1); SODIUM LEVEL 139 MMOL/L (136-145); TOTAL PROTEIN 6.8 G/DL (5.7-8.2)
[2024-01-31 10:09] LABS: BASOPHILS 1 % (0-1); EOSINOPHILS 3 % (0-3); LYMPHOCYTES 2 % (16-44); MONOCYTES 4 % (0-5); NEUTROPHILS 88 % (28-66)
[2024-01-31 10:10] LABS: ANISOCYTOSIS 4+
[2024-01-31 10:11] LABS: MICROCYTOSIS 1+
[2024-01-31 10:13] LABS: PLATELET ESTIMATE NORMAL (NORMAL)
== END ==
LOC: M LAB 08:03
PROVIDERS: ATTEND Registered Nurse
DX: D47.3 Essential (hemorrhagic) thrombocythemia (principal); E61.1 Iron deficiency

== ENCOUNTER → 2024-02-28 | Outpatient (REF) | payer MEDICARE | LOC: M LAB REF 12:43 | PROVIDERS: ATTEND Family Medicine | DX: R79.82 Elevated C-reactive protein (CRP) (principal) ==

== ENCOUNTER → 2024-03-31 | Outpatient (REF) | payer MEDICARE ==
[2024-03-31 14:19] LABS: PERCENT SATURATION 17.6 % (13.2-45.0)
[2024-03-31 14:22] LABS: FERRITIN 91.2 NG/ML (7.3-270.7)
== END ==
LOC: M LAB REF 12:56
PROVIDERS: ATTEND Family Medicine
DX: E61.1 Iron deficiency (principal); D47.3 Essential (hemorrhagic) thrombocythemia

== ENCOUNTER → 2024-06-08 | Outpatient (REF) | payer MEDICARE ==
[2024-06-08 16:02] LABS: PERCENT SATURATION 14.1 % (13.2-45.0)
[2024-06-08 16:05] LABS: FERRITIN 59.7 NG/ML (7.3-270.7)
== END ==
LOC: M LAB REF 13:46
PROVIDERS: ATTEND Family Medicine
DX: D47.3 Essential (hemorrhagic) thrombocythemia (principal)

== ENCOUNTER → 2024-06-29 | Outpatient (REF) | payer MEDICARE | LOC: M LAB REF 13:04 | PROVIDERS: ATTEND Family Medicine | DX: R79.82 Elevated C-reactive protein (CRP) (principal) ==

== ENCOUNTER 2024-08-07 07:22 | Day surgery (SDC) | payer MEDICARE ==
[~2024-08-07] VITALS: Ht 182.9 cm; Wt 117.0 kg
[~2024-08-07 07:22] MED LIST changes: +ACET300T47; +ANAG1CAP PO; +ARNU1INH; +CHLO125TA PO; +CLON-412 PO; +ECOT81TA5 PO; +LEVO50TA5 PO; +LOPR1TAB7 PO; +LR 1,000 ML IV SCH; +MIDAZOLAM INJ 2MG/2ML VIAL As Ordered ONE; +MULTTAB61 PO; +NORV5TAB PO; +OMEP-173 PO; +ZOLP10TA2 PO; +fentaNYL 100 MCG/2 ML INJECTION As Ordered ONE
[2024-08-07] MEDS: FLURBIPROFEN 0.03% OPHTH SOLN 2.5 ML OD SCH (08:01)
[2024-08-07] MEDS: TETRACAINE 0.5% OPHTH SOLN 4ML OD SCH (08:01)
[2024-08-07] MEDS: PHENYLEPHRINE 2.5% OPHTH SOL 2ML OD SCH (08:01)
[2024-08-07] MEDS: CYCLOPENTOLATE 1% OPHTH SOLN 2ML BTL OD SCH (08:01)
[2024-08-07] MEDS: LIDOCAINE 1% SDV 5ML VIAL As Ordered ONE (09:19)
[2024-08-07] MEDS: CEFUROXIME 1MG/0.1ML INTRACAMERAL INJ As Ordered ONE (09:19)
[2024-08-07] MEDS ORDERED: LABETALOL 100MG/20ML VIAL As Ordered ONE (09:25)
[2024-08-07 09:40] VITALS: BP 166/89; TEMP 97.2; O2SAT 96
== END 2024-08-07 10:11 | disposition home or self-care (01) ==
LOC: M SDC 07:22
PROVIDERS: ATTEND Ophthalmology
DX: H25.12 Age-related nuclear cataract, left eye (principal); H25.041 Posterior subcapsular polar age-related cataract, right eye; H25.011 Cortical age-related cataract, right eye; I48.91 Unspecified atrial fibrillation; I10 Essential (primary) hypertension; R60.0 Localized edema; E11.9 Type 2 diabetes mellitus without complications; E03.9 Hypothyroidism, unspecified; D64.9 Anemia, unspecified; J45.909 Unspecified asthma, uncomplicated; D75.838 Other thrombocytosis; Z91.018 Allergy to other foods; Z79.899 Other long term (current) drug therapy
CPT/HCPCS: 66984; J0697; J1920; J2250; J3010; V2632

== ENCOUNTER → 2024-08-21 | Outpatient (CLI) | payer MEDICARE ==
[~2024-08-21] MED LIST changes: -LR 1,000 ML IV SCH; -MIDAZOLAM INJ 2MG/2ML VIAL As Ordered ONE; -fentaNYL 100 MCG/2 ML INJECTION As Ordered ONE
[2024-08-21 13:38] LABS: COLLAGEN EPINEPHRINE 133 SECONDS (74-162)
== END ==
LOC: M LAB 11:33
PROVIDERS: ATTEND Internal Medicine Hematology
DX: D47.3 Essential (hemorrhagic) thrombocythemia (principal); I48.19 Other persistent atrial fibrillation; T46.0X5A Adverse effect of cardiac-stimulant glycosides and drugs of similar action, initial encounter

== ENCOUNTER → 2024-08-21 | Outpatient (REF) | payer MEDICARE ==
[2024-08-21 12:38] LABS: INR 1.09; PARTIAL THROMBOPLASTIN TIME 31.2 SECONDS (24.8-34.2); PROTHROMBIN TIME 14.5 SECONDS (12.5-14.5)
[2024-08-21 13:14] LABS: DIGOXIN LEVEL 0.2 NG/ML (0.8-2.0); PERCENT SATURATION 20.3 % (13.2-45.0)
[2024-08-21 13:15] LABS: FERRITIN 104.2 NG/ML (7.3-270.7)
== END ==
LOC: M LAB REF 12:21
PROVIDERS: ATTEND Family Medicine
DX: I48.19 Other persistent atrial fibrillation (principal); T46.0X5A Adverse effect of cardiac-stimulant glycosides and drugs of similar action, initial encounter; D47.3 Essential (hemorrhagic) thrombocythemia

== ENCOUNTER → 2025-02-09 | Outpatient (REF) | payer MEDICARE ==
[~2025-02-09] MED LIST changes: -ARNU1INH; +ARNU1INH INH; +CEPH500C PO; +CHLO50TA PO; +HYDR12.510; +HYDR12.510 PO; -HYDR12CA; -HYDR12CA PO; +LACT30TA PO; +ZOLP10TA11 PO; -ZOLP10TA2 PO
[2025-02-09 15:22] LABS: C REACTIVE PROTEIN QUANTITATIV 1.18 MG/DL (<1.0); IRON (FE) 43.0 UG/DL (50-170)
[2025-02-09 15:23] LABS: PERCENT SATURATION 16.2 % (13.2-45.0)
== END ==
LOC: M LAB REF 14:21
PROVIDERS: ATTEND Family Medicine
DX: N18.30 Chronic kidney disease, stage 3 unspecified (principal); D47.3 Essential (hemorrhagic) thrombocythemia

== ENCOUNTER → 2025-04-06 | Outpatient (CLI) | payer MEDICARE ==
[2025-04-06 14:48] LABS: BASO # 0.2 10^3/uL (0.0-0.2); BASO % 1.0 % (0.0-1.0); EOS # 0.5 10^3/uL (0.0-0.5); EOS % 2.5 % (0.0-3.0); LYMPH # 0.8 10^3/uL (1.5-5.0); LYMPH % 4.5 % (24.0-44.0); MONO # 1.2 10^3/uL (0.0-0.8); MONO % 6.7 % (2.0-8.0); NEUTROPHILS # 15.7 10^3/uL (1.5-8.5); NEUTROPHILS % 84.5 % (36.0-66.0); PLATELET COUNT, AUTOMATED 465 10^3/uL (150-450)
[2025-04-06 15:21] LABS: ALT/SGPT 17.0 U/L (7.0-40); AST/SGOT 19.0 U/L (<34); CALCIUM LEVEL 8.7 MG/DL (8.3-10.6); CARBON DIOXIDE LEVEL 23.0 MMOL/L (20-31); CHLORIDE LEVEL 103.0 MMOL/L (98-107); CREATININE FOR GFR 2.1 MG/DL (0.55-1.30); GLOMERULAR FILTRATION RATE 24.3 (>39); POTASSIUM SERUM 5.5 MMOL/L (3.5-5.1); SODIUM LEVEL 139.0 MMOL/L (136-145)
== END ==
LOC: M LAB 12:02
PROVIDERS: ATTEND Internal Medicine Hematology
DX: D47.3 Essential (hemorrhagic) thrombocythemia (principal)